=== PATIENT | female | born 1955 | race Caucasian/White ===

== ENCOUNTER 2017-07-01 10:15 | Outpatient (CLI) | payer BC ==
--- NOTE | 2017-07-01 15:50 | NM ---
WHOLE BODY BONE SCAN: Comparison: 08-15-16, MRI 08-22-16 History: Lung cancer with metastatic disease at the right femur, status post radiation therapy. Technique: A whole body bone scan was performed after administration of 33 mCi Technetium 99M MBP. FINDINGS: There is very subtle increased uptake of the radiopharmaceutical in the proximal aspect of the femur where the previous lesion was identified. This was barely noticeable and would have likely been imp erceptible, if not having the prior imaging. No other areas of suspicious uptake of radiopharmaceuti ruel are seen to suggest osseous metastatic disease. Soft tissue activity is unremarkable. IMPRESSION: Improvement of uptake in the proximal right femur suggests treatment of the metastatic lesion to the right femur. POS: [facility]
== END 2017-07-01 10:16 | disposition home or self-care (01) ==
LOC: NM 10:15
PROVIDERS: ATTEND Internal Medicine Hematology & Oncology
DX: C79.51 Secondary malignant neoplasm of bone (principal); C34.81 Malignant neoplasm of overlapping sites of right bronchus and lung
CPT/HCPCS: 78306; A9503

== ENCOUNTER 2017-07-29 12:42 | Outpatient (CLI) | payer BC ==
--- NOTE | 2017-07-29 17:18 | MRI ---
MRI BRAIN WITH AND WITHOUT CONTRAST: 07/29/2017 HISTORY: A 61-year-old female with diagnosis of ICD-10: C34.81, malignant neoplasm of overlapping sites of right bronchus and lung. C79.51 secondary malignant neoplasm of bone. The patient now presents with forgetfulness. As requested, Dr. Cuba was called with the results at 2:38 p.m. on 07/29/2017. TECHNIQUE: Multiple sequences obtained in axial, sagittal, and coronal planes; pre and post IV injection of jevon olinium-based contrast agent: 14 mL of MultiHance. FINDINGS: The ventricles are normal in size and configuration. There is no restricted diffusion, abnormal int raaxial enhancement, mass, midline shift or any other mass effect, recent intraaxial hemorrhage, or extraaxial fluid collection. There are many scattered punctate T2-hyperintensities in the cerebral w collins matter consistent with mild chronic ischemic white matter changes due to mild microvascular ath erosclerosis. There are also more confluent regions of T2 hyperintense chronic ischemic white matte r changes in the bilateral parietal deep cerebral white matter, left side greater than right. There is no interval change overall since 11/28/2016. IMPRESSION: 1. Mild-moderate chronic ischemic white matter changes. 2. Otherwise negative. 3. No juan metastasis. ronnell[] POS: [facility]
== END 2017-07-29 12:43 | disposition home or self-care (01) ==
LOC: MRI 12:42
PROVIDERS: ATTEND Internal Medicine Hematology & Oncology
DX: C34.81 Malignant neoplasm of overlapping sites of right bronchus and lung (principal); C79.51 Secondary malignant neoplasm of bone
CPT/HCPCS: 70553; 80053; 82248; 83615; 84100; 84436; 84443; 84550

== ENCOUNTER 2017-09-07 08:38 | Outpatient (CLI) | payer BC ==
--- NOTE | 2017-09-07 11:22 | CT ---
CONTRAST ENHANCED CT IMAGES OF THE CHEST AND ABDOMEN: HISTORY: Lung cancer. Bone metastases. COMPARISON: 06/23/2017 TECHNIQUE: Contrast enhanced CT images of the chest and abdomen are obtained. FINDINGS: CHEST: Contrast enhanced CT of the chest and abdomen demonstrates emphysematous changes seen in both upper lobes of the lungs. An area of patchy soft tissue density is seen in the right middle lobe, u nchanged since the previous exam. A small, approximately 4 mm nodule is seen in the left lower lobe, also stable and unchanged since th e previous comparison exam. Previously noted left axillary enlarged lymph node is no longer visible and has been removed or has r esolved. Again, a left jugular Mediport catheter is in place. Coronary artery calcification is seen. There is some increased pericardial fluid noted. ABDOMEN: The liver, spleen, pancreas, adrenal glands, and kidneys are unremarkable. The gallbladder has been surgically removed. No evidence of periaortic lymphadenopathy is seen. There is complete occlusion of the abdominal aorta, just distal to the infrarenal portion of the abdo mariah aorta. Atherosclerotic plaque extends into both common iliac arteries, which also appear to be occluded. No significant evidence of bony metastatic lesions seen. Vacuum disk change is seen at the L5-S1 int ervertebral disk space. IMPRESSION: 1. Small pericardial effusion. 2. Resolved left axillary lymph node. 3. Fibrobullous changes seen in the lung parenchyma. 4. Stable left lower lobe and right middle lobe areas of lung opacities. 5. Occlusion of the infrarenal abdominal aorta and iliac arteries. 6. No evidence of periaortic lymphadenopathy or hepatic parenchymal lesions. POS: [facility]
[2017-09-07] MEDS ORDERED: Iopamidol 370 76% 100 ML VIAL ONE (13:54)
== END 2017-09-07 08:39 | disposition home or self-care (01) ==
LOC: CT 08:38
PROVIDERS: ATTEND Internal Medicine Hematology & Oncology
DX: C34.81 Malignant neoplasm of overlapping sites of right bronchus and lung (principal); C79.51 Secondary malignant neoplasm of bone; I31.3 Pericardial effusion (noninflammatory); I74.5 Embolism and thrombosis of iliac artery; N28.0 Ischemia and infarction of kidney; R91.8 Other nonspecific abnormal finding of lung field
CPT/HCPCS: 71260; 74160

== ENCOUNTER 2017-12-07 15:17 | Outpatient (CLI) | payer BC | END 2017-12-07 15:18 | disposition home or self-care (01) | LOC: BICCT 15:17 | PROVIDERS: ATTEND Internal Medicine Hematology & Oncology | DX: N20.0 Calculus of kidney (principal); C34.81 Malignant neoplasm of overlapping sites of right bronchus and lung; C79.51 Secondary malignant neoplasm of bone | CPT/HCPCS: 74176; 81001; 87086 ==

== ENCOUNTER 2017-12-28 07:52 | Outpatient (CLI) | payer BC ==
[2017-12-28 08:37] LABS: Estimated GFR-MDRD - POC Greater than 90
--- NOTE | 2017-12-28 11:23 | CT ---
CT OF THE CHEST AND ABDOMEN WITH IV CONTRAST: Date: 12/28/17 INDICATION: History of lung cancer, status post chemo and radiation therapy. COMPARISON: Recent CT of the thorax with contrast dated 09/07/17, as well as CT of chest, abdomen, and pelvis fro [facility] dated 07/21/16. FINDINGS: There is severe emphysema. The small linear scar-like region within the medial segment of the right m iddle lobe is stable. Tiny 5.0 mm ground-glass pulmonary nodule within the right lower lobe on image 41 of series 3 is stable. Small, sub-4 mm, subpleural pulmonary nodule within the left lower lobe on image 30 of series 3 is stable. No new pulmonary nodule is identified. No pathologically enlarged lymph nodes are evident. The soft tissue thickening involving the paratrac heal region and anterior mediastinum likely related to therapy changes is stable. Supraclavicular reg ions appear clear. There is a left subclavian chest wall port in place. There are scattered vascular calcifications. No focal hepatic lesion is evident. The adrenal glands appear within normal limits. The pancreas and spleen are normal appearing. Kidneys are normal appearing. Gallbladder is surgically absent. Complete occlusion of the distal abdominal aorta is stable. There is diffuse osteopenia. No definite acute osseous abnormality is evident. There is scattered deg enerative and osteoarthritic change. IMPRESSION: 1. No evidence of recurrent malignancy within the chest or abdomen. 2. Small pulmonary nodules within the right middle lobe and both lower lobes are stable. 3. Stable severe emphysema. 4. Stable complete occlusion of the distal abdominal aorta. POS: [facility]
[2017-12-28] MEDS ORDERED: Iopamidol 370 76% 100 ML VIAL ONE (13:09)
== END 2017-12-28 07:53 | disposition home or self-care (01) ==
LOC: CT 07:52
PROVIDERS: ATTEND Internal Medicine Hematology & Oncology
DX: C34.81 Malignant neoplasm of overlapping sites of right bronchus and lung (principal); J43.9 Emphysema, unspecified; R91.8 Other nonspecific abnormal finding of lung field; I70.0 Atherosclerosis of aorta
CPT/HCPCS: 71260; 74160; 82565

== ENCOUNTER 2018-02-23 12:49 | Outpatient (CLI) | payer BC ==
[2018-02-23 14:04] LABS: Hemoglobin 12.5 g/dL (12.0-16.0); Mean Corpuscular HGB CONC 32.2 g/dL (32.0-36.0); Mean Corpuscular Hemoglobin 34.8 pg (27.0-31.0); Mean Platelet Volume 7.8 fL (7.4-10.4); Platelet Count 200 thou/uL (130-400); RBC Distribution Width 12.9 % (11.5-14.5); White Blood Cell (WBC) Count 6.2 thou/uL (4.8-10.8)
[2018-02-23 14:25] LABS: Anion Gap 10 mmol/L (10-20); BUN (Urea Nitrogen) 13 mg/dL (9.8-20.1); Calc. Creatinine Clearance 0 mL/min (70-130); Calcium 9.6 mg/dL (7.8-10.44); Carbon Dioxide 26 mmol/L (23-31); Chloride 108 mmol/L (98-107); Estimated GFR-MDRD 84; Glucose 85 mg/dL (80-115); Potassium 5.6 mmol/L (3.5-5.1); Sodium 138 mmol/L (136-145)
--- NOTE | 2018-02-23 23:50 | EKG ---
Test Reason : Blood Pressure : / mmHG Vent. Rate : 082 BPM Atrial Rate : 082 BPM P-R Int : 122 ms QRS Dur : 078 ms QT Int : 356 ms P-R-T Axes : 081 078 082 degrees QTc Int : 415 ms Normal sinus rhythm Right atrial enlargement Borderline ECG When compared with ECG of 18-MAR-2017 13:41, Vent. rate has decreased BY 45 BPM Confirmed by GERDA RICHMOND, SGuzman ([id number]) on 02/23/2018 11:50:34 PM Referred By: DEEP Confirmed By:DR. Nemesio LORENZ MD
== END 2018-02-23 12:50 | disposition home or self-care (01) ==
LOC: LABBT 12:49
PROVIDERS: ATTEND Urology
DX: Z01.818 Encounter for other preprocedural examination (principal); N32.9 Bladder disorder, unspecified
CPT/HCPCS: 80048; 81001; 85027; 93005; 93010

== ENCOUNTER 2018-03-02 09:05 | Day surgery (SDC) | payer BC ==
[2018-02-23 13:04] VITALS: BMI 25.0
[2018-03-02] MEDS ORDERED: Levofloxacin 500 mg/D5W 100 ml Premix Bag ONE (09:58)
[2018-03-02] MEDS ORDERED: Fentanyl 100 MCG/2 ML VIAL ONE ×2 (10:46→12:01)
[2018-03-02] MEDS ORDERED: Phenazopyridine HCl 97.5 MG TABLET ONE ×2 (12:04)
--- NOTE | 2018-03-02 12:58 | OP ---
DATE OF PROCEDURE: 03/02/2018 PREOPERATIVE DIAGNOSIS: Right bladder wall lesion. POSTOPERATIVE DIAGNOSIS: Right bladder wall lesion. PROCEDURE: Excision of lesion via cold cup biopsy as well as random bladder biopsies with isabel mayo SURGEON: Ramya Rojas M.D. ANESTHESIA: General with laryngeal mask airway. FINDINGS: Adequate resection of any abnormal appearing tissue. INDICATIONS: The patient is a 62-year-old female with metastatic lung cancer who had a workup for mi crohematuria and intraoperative cystoscopy revealed changes of the mucosa with overlying brown white balls adherent to this area, some of which I was able to scrape away, others I was not, so I wanted t o take her for formal resection in the OR. None of this appeared consistent with a primary TCC so I did not prepare for mitomycin postoperatively. TECHNIQUE: The patient was brought to the room by Anesthesia, laid on the table in supine position. After receiving general anesthetic the legs were placed in lithotomy position and her perineum was p repped and draped in sterile fashion. Using a 22-German cystoscope and 30-degree lens was traversed and inspected. The area of concern was hyperemic with now only 1 white ball approximately 1 mm in di ameter adherent to the mucosa as the others had been scraped off in the office so this entire area wa s resected with a cold cup biopsy and sent together as a lesion in the right wall. Then, random biop sies were performed of right and left posterior trigone and dome. All of these areas were fulgurated . The area of resection was small as I did not feel like she needed a catheter indwelling, but had a lready emphasized the need not to over distend or hold her urine in the postoperative period. Prior to resecting, the 70 degree lens was used to inspect the bladder as well. No other lesions were note d. The ureteral orifices were in normal position. At this point, the scope was drained and then the bladder was drained and the scope removed in its entirety. The patient was awakened and transferred to PACU in stable condition.
[2018-03-02] MEDS ORDERED: PROPOFOL 200 MG/20 ML VIAL ONE (13:45)
[2018-03-02] MEDS ORDERED: PHENYLEPHRINE-NS 100 MCG/ML 10 ML SYRINGE ONE (13:45)
[2018-03-02] MEDS ORDERED: Lidocaine 1% PF 5 ML VIAL ONE (13:45)
[2018-03-02] MEDS ORDERED: Ondansetron HCl/PF 4 MG/2 ML Vial ONE (13:45)
[2018-03-02] MEDS ORDERED: Dexamethasone 20 MG/5 ML VIAL ONE (13:45)
== END 2018-03-02 13:42 | disposition home or self-care (01) ==
LOC: SDC 09:05
PROVIDERS: ATTEND Urology
PROC: 0TBB8ZX Excision of Bladder, Via Natural or Artificial Opening Endoscopic, Diagnostic (ICD-10-PCS; principal; 2018-03-02)
DX: N32.89 Other specified disorders of bladder (principal); E03.9 Hypothyroidism, unspecified; M19.90 Unspecified osteoarthritis, unspecified site; F17.210 Nicotine dependence, cigarettes, uncomplicated; J44.9 Chronic obstructive pulmonary disease, unspecified; Z86.718 Personal history of other venous thrombosis and embolism; Z79.82 Long term (current) use of aspirin; Z79.899 Other long term (current) drug therapy; Z88.0 Allergy status to penicillin; Z91.041 Radiographic dye allergy status
CPT/HCPCS: 88305; 96374; J1100; J1956; J2001; J2405; J2704; J3010

== ENCOUNTER 2018-03-26 07:55 | Outpatient (CLI) | payer BC ==
[2018-03-26 08:31] LABS: Estimated GFR-MDRD - POC Greater than 90
--- NOTE | 2018-03-26 09:27 | CT ---
CT OF THE CHEST WITH CONTRAST CT OF THE ABDOMEN WITH CONTRAST: Date: 03/26/18 HISTORY: Malignant neoplasm of the right bronchus and lung. TECHNIQUE: 1. Multiple contiguous axial images were obtained in a CT of the chest with contrast. Coronal reform ats were performed. 2. Multiple contiguous axial images were obtained in a CT of the abdomen only with contrast. Coronal reformats were performed. PO contrast was administered. FINDINGS: CT CHEST: Severe emphysematous changes are seen in the lungs. No suspicious pulmonary nodule is seen. No focal infiltrate or present. No pneumothorax or pleural effusions seen. A stable nodular opacity is seen in the right lower lobe on image 39 of 63 measuring approximately 4.0 mm in size. The heart is normal in size without focal cardiac abnormality. No hilar or mediastinal lymphadenopath y are seen. Atherosclerotic calcifications are seen in the aorta and coronary arteries. The bones of the thorax show degenerative changes in the spine. The chest wall soft tissues are unrem arkable. CT ABDOMEN: The patient is status post cholecystectomy. The liver, kidneys, adrenal glands, spleen, and pancreas are unremarkable. No free air, free fluid, or stranding changes are seen in the abdomen. The visualized large and small bowel are unremarkable. No abdominal adenopathy is seen. There is stab le occlusion of the distal aorta just above the bifurcation with severe atherosclerotic disease in th e aorta and iliac vasculature. The abdominal wall soft tissues and bones of the lumbar spine are unremarkable. IMPRESSION: 1. No evidence of intrathoracic metastatic disease. 2. Stable small right lower lobe pulmonary nodule. 3. Emphysema. 4. No evidence of recurrent or metastatic intraabdominal disease. 5. Stable occlusion of the distal aorta. POS: [facility]
== END 2018-03-26 07:56 | disposition home or self-care (01) ==
LOC: CT 07:55
PROVIDERS: ATTEND Internal Medicine Hematology & Oncology
DX: C79.51 Secondary malignant neoplasm of bone (principal); C34.90 Malignant neoplasm of unspecified part of unspecified bronchus or lung; J43.9 Emphysema, unspecified; R91.1 Solitary pulmonary nodule; I74.11 Embolism and thrombosis of thoracic aorta
CPT/HCPCS: 71260; 74160; 82565

== ENCOUNTER 2018-06-29 14:39 | Outpatient (CLI) | payer BC | END 2018-06-29 14:40 | disposition home or self-care (01) | LOC: BICRAD 14:39 | PROVIDERS: ATTEND Neurological Surgery | DX: S22.039A Unspecified fracture of third thoracic vertebra, initial encounter for closed fracture (principal); S22.049A Unspecified fracture of fourth thoracic vertebra, initial encounter for closed fracture; S22.059A Unspecified fracture of T5-T6 vertebra, initial encounter for closed fracture | CPT/HCPCS: 72070 ==

== ENCOUNTER 2018-09-17 09:50 | Day surgery (SDC) | payer BC ==
[2018-09-16 08:40] VITALS: BMI 23.6
[2018-09-17] MEDS ORDERED: Sodium Chloride 0.9% 10 ML ONE (10:32)
[2018-09-17] MEDS ORDERED: Fentanyl 100 MCG/2 ML VIAL ONE (11:36)
[2018-09-17] MEDS ORDERED: Midazolam HCl 2 mg/2 ml Vial ONE (11:36)
--- NOTE | 2018-09-17 14:34 | MRI ---
THORACIC SPINE MRI WITH AND WITHOUT CONTRAST: COMPARISON: 06/05/2018. HISTORY: Lung cancer with osseous metastases. TECHNIQUE: MRI thoracic spine is performed with and without intravenous Gadolinium administration. Multisequent ial, multiplanar imaging is performed. FINDINGS: There is abnormal T1 marrow signal intensity at the T4 vertebral body, similar to the previous examin ation. There is interval development of T1 marrow hypointensity involving T7 and T8. There is mild loss of vertebral body height. There is associated STIR hyperintensity with absent enhancement. The re is also abnormal signal intensity with moderate to severe loss of vertebral body height at T5. Th ere is T1 hypointensity with heterogeneous STIR hyperintensity. Absent enhancement. No other areas of abnormal marrow signal intensity are appreciated in the visualized distal thoracic and lumbar spin e. Osteoporotic compression fractures are favored at T5, T7, and T8. The possibility of metastases in this region cannot be completely excluded but is less favored. There does not appear to be abnorm al paraspinal soft tissue signal intensity. There is progression of kyphosis. The thoracic cord has an overall normal size and signal intensity. Conus medullaris terminates at th e mid L1 level. Visualized mediastinum and lung parenchyma are unremarkable. Visualized solid organs are unremarkabl e. There is no abnormal enhancement with regards to the thoracic cord. IMPRESSION: 1. Normal signal intensity of the thoracic cord. 2. Interval moderate to severe loss of vertebral body height at T5, mild loss of vertebral body heig ht at T7 and T8. There is abnormal T1 marrow signal intensity along with STIR hyperintensity to sugg est edema. However, there is no associated enhancement. Given that the findings are centered from T 4 through T8 and there are no additional findings in the remainder of the visualized vertebrae, the p ossibility of osteoporotic fractures must be considered. The possibility of a pathologic fracture du e to superimposed metastases cannot be completely excluded. POS: [facility]
[2018-09-17] MEDS ORDERED: Hydrocortisone Sod Succ/PF 100 mg/2 ml Vial ONE (21:54)
[2018-09-17] MEDS ORDERED: PROPOFOL 200 MG/20 ML VIAL ONE (21:54)
[2018-09-17] MEDS ORDERED: ePHEDrine/0.9% NaCl/PF SYRINGE 50 mg/10 ml ONE (21:54)
== END 2018-09-17 14:25 | disposition home or self-care (01) ==
LOC: SDC/OP 09:50
PROVIDERS: ATTEND Neurological Surgery
DX: S22.040D Wedge compression fracture of fourth thoracic vertebra, subsequent encounter for fracture with routine healing (principal); S22.050D Wedge compression fracture of T5-T6 vertebra, subsequent encounter for fracture with routine healing; C34.90 Malignant neoplasm of unspecified part of unspecified bronchus or lung; C79.51 Secondary malignant neoplasm of bone; J44.9 Chronic obstructive pulmonary disease, unspecified; E78.5 Hyperlipidemia, unspecified; M19.90 Unspecified osteoarthritis, unspecified site; E11.51 Type 2 diabetes mellitus with diabetic peripheral angiopathy without gangrene; I74.09 Other arterial embolism and thrombosis of abdominal aorta; Z86.718 Personal history of other venous thrombosis and embolism; Z88.0 Allergy status to penicillin; Z91.041 Radiographic dye allergy status; Z79.82 Long term (current) use of aspirin; Z79.899 Other long term (current) drug therapy
CPT/HCPCS: 72157; 93005; 93010; J1642; J1720; J2250; J2704; J3010

== ENCOUNTER 2018-09-20 08:06 | Outpatient (CLI) | payer BC ==
--- NOTE | 2018-09-20 10:22 | CT ---
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 Comparison: 06-07-18 FINDINGS: The previously described approximately 0.5 cm noncalcified right lower lobe pulmonary nodule very tyson se to the posterior pleural surface, has not changed. Severe centrilobular emphysematous changes of t he bilateral upper lobes are again noted. No new suspicious pulmonary nodule. No destructive osseous lesion of the ribs, sternum, or scapulae. Left subclavian implantable vascular port with distal tip i n SVC. No cardiomegaly, consolidation, mediastinal lymphadenopathy, hilar lymphadenopathy, cardiomega ly or pericardial effusion. No thoracic aneurysm or dissection. Sclerotic changes involving compressi on fracture of T4 vertebral body without osseous retropulsion. Trachea and major bronchi are patent a nd clear. No interval change overall. Normal liver with no evidence of metastatic disease. Normal bilateral kidneys, spleen, pancreas, and right adrenal. Nonspecific thickening of left adrenal gland. Heavy atherosclerotic plaque, both calci fied and noncalcified involving abdominal aorta, especially distally where there appears to be total or near total occlusion of aortic bifurcation and proximal aspects of common iliac arteries. No dylan hepatis or mesenteric lymphadenopathy. No obvious pathology of visualized portions of bowel in the u pper abdomen. No free fluid. Cholecystectomy clips. No intraabdominal lymphadenopathy identified. No interval change. IMPRESSION: 1. No interval change in the chest and abdomen compared to 06-07-18. 2. Stable 5 mm right lower lobe pulmonary nodule. 3. Somewhat severe centrilobular emphysema. 4. No evidence of metastatic disease in the abdominal cavity. 5. Severe stenosis with either total or near total occlusion of aortic bifurcation and bilateral comm on iliac arteries. Recommend clinical correlation. POS: [facility]
== END 2018-09-20 08:07 | disposition home or self-care (01) ==
LOC: CT 08:06
PROVIDERS: ATTEND Internal Medicine Hematology & Oncology
DX: C34.90 Malignant neoplasm of unspecified part of unspecified bronchus or lung (principal); C79.51 Secondary malignant neoplasm of bone; R91.1 Solitary pulmonary nodule; J43.2 Centrilobular emphysema; I35.0 Nonrheumatic aortic (valve) stenosis; I77.89 Other specified disorders of arteries and arterioles
CPT/HCPCS: 71260; 74160

== ENCOUNTER 2018-11-26 14:51 | Outpatient (CLI) | payer BC ==
--- NOTE | 2018-11-26 15:24 | RAD ---
THREE VIEWS OF THE THORACIC SPINE: Comparison: CT chest 09-20-18 History: Wedge compression fractures of T5, T6, T7 and T8. FINDINGS: Three views of the thoracic spine shows multiple wedge compression fractures in the midthoracic spine . The T7 and T8 fractures demonstrate approximately 10-25% height loss. A T5 fracture demonstrates ap proximately 50% height loss. A fracture above this level cannot be definitely determined given the carolina liseth overlying the spine from the patient's shoulders. IMPRESSION: Multiple wedge compression fractures of the mid thoracic spine. POS: [facility]
== END 2018-11-26 14:52 | disposition home or self-care (01) ==
LOC: BICRAD 14:51
PROVIDERS: ATTEND Neurological Surgery
DX: S22.050D Wedge compression fracture of T5-T6 vertebra, subsequent encounter for fracture with routine healing (principal); S22.060D Wedge compression fracture of T7-T8 vertebra, subsequent encounter for fracture with routine healing
CPT/HCPCS: 72072

== ENCOUNTER 2018-12-13 21:28 | Inpatient (IN) | payer BC ==
[~2018-12-13 21:28] MED LIST: ISOVUE-370 76%-LOCM 1 ML ONE
[2018-12-13] MEDS ORDERED: Dicyclomine 20 MG TAB ONE (21:50)
[2018-12-13] MEDS ORDERED: Pantoprazole 40 MG VIAL ONE (21:50)
[2018-12-13] MEDS ORDERED: Famotidine/PF 20 mg/2ml Vial ONE (22:12)
[2018-12-13] MEDS ORDERED: methylPREDNISolone Sod Succ/PF 125 MG/2 ML VIAL ONE (22:12)
[2018-12-13] MEDS ORDERED: diphenhydrAMINE 50 MG/ML VIAL ONE (22:12)
[2018-12-13 22:29] LABS: Band 17 % (5-11); Eosinophils 1 % (0-10); Hemoglobin 11.3 g/dL (12.0-16.0); Lymphocytes 9 % (21-51); MDiff Complete? YES; Mean Corpuscular HGB CONC 31.2 g/dL (32.0-36.0); Mean Corpuscular Hemoglobin 31.1 pg (27.0-31.0); Mean Corpuscular Volume 99.5 fL (78.0-98.0); Mean Platelet Volume 8.4 fL (7.4-10.4); Monocytes 21 % (0-10); Neutrophil 51 % (42-75); Platelet Count 225 thou/uL (130-400); Platelet Morphology Comment Appears Adequate; RBC Distribution Width 15.1 % (11.5-14.5); Red Blood Cell (RBC) Count 3.65 mill/uL (4.20-5.40); White Blood Cell (WBC) Count 12.2 thou/uL (4.8-10.8)
[2018-12-13 22:35] LABS: ALT (SGPT) 14 U/L (8-55); AST (SGOT) 24 U/L (5-34); Albumin 3.1 g/dL (3.4-4.8); Alkaline Phosphatase 57 U/L (40-150); Anion Gap 19 mmol/L (10-20); BUN (Urea Nitrogen) 16 mg/dL (9.8-20.1); Bilirubin, Total 0.7 mg/dL (0.2-1.2); Calc. Creatinine Clearance 0 mL/min (70-130); Calcium 8.5 mg/dL (7.8-10.44); Carbon Dioxide 14 mmol/L (23-31); Chloride 105 mmol/L (98-107); Estimated GFR-MDRD 53; Globulin 2.4 g/dL (2.4-3.5); Potassium 4.3 mmol/L (3.5-5.1); Protein, Total 5.5 g/dL (6.0-8.3); Sodium 134 mmol/L (136-145)
[2018-12-13 22:38] LABS: Glucose 59 mg/dL (80-115)
[2018-12-13] MEDS ORDERED: Dextrose 50% Abboject 50 ML SYRINGE ONE (22:42)
[2018-12-13] MEDS ORDERED: Ondansetron PF 4 MG/2 ML Vial ONE (22:50)
[2018-12-14 01:45] LABS: Bilirubin Negative (Negative); Blood, Urine Trace (Negative); Clarity CLEAR (Clear); Glucose, Urine (Dipstick) 250 mg/dL (Negative); Leukocyte Negative (Negative); Nitrite Negative (Negative); Protein, Urine (Dipstick) Trace mg/dL (Neg-Trace); Specific Gravity, Urine 1.034 (1.002-1.036); Urobilinogen 0.2 mg/dL (0.2-1.0)
[2018-12-14 01:46] LABS: Bacteria/HPF None Seen HPF (None Seen); Hyaline Casts/LPF 0-3 HYALINE CAST LPF (0-3 Hyaline); RBC/HPF 0-3 HPF (0-3); Squamous Epithelial 0-3 HPF (0-3); WBC/HPF 0-3 HPF (0-3)
[2018-12-14] MEDS ORDERED: Ondansetron PF 4 MG/2 ML Vial ONE (08:11)
--- NOTE | 2018-12-14 08:14 | CT ---
CT ABDOMEN AND PELVIS WITH IV CONTRAST: 12/13/2018 HISTORY: Nausea, vomiting, and abdominal pain. COMPARISON: 09/20/2018 FINDINGS: Emphysematous changes are seen at the visualized lung bases. A 5 mm pleural-based nodular density is again seen at the right lung base. A small thin-walled, cystic structure is seen at the right lung base as well. As noted on the prior examination, there is occlusion of the distal infrarenal abdominal aorta and co mmon iliac arteries, with dense vascular calcifications in the visualized iliac arteries. Post cholecystectomy changes are noted. The liver, spleen, pancreas, bilateral adrenal glands, and kidneys demonstrate a normal CT appearance . A few scattered colonic diverticula are seen. The appendix is not definite visualized, but there are no secondary signs to suggest appendicitis. No free fluid, fluid collection, or lymphadenopathy is seen in the abdomen or pelvis. Degenerative changes are seen in the spine. There is suggested thickening involving the distal esophagus. IMPRESSION: 1. Thickening of the visualized distal esophagus, not present on the prior examination. Further chon luation with endoscopy is recommended. 2. Stable, 5 mm, pleural-based, right lower lobe pulmonary nodule. 3. Post cholecystectomy changes. 4. Occlusion of the distal infrarenal abdominal aorta and iliac arteries. 5. Colonic diverticulosis. 6. Emphysematous changes at each lung base. POS: [facility]
--- NOTE | 2018-12-14 08:29 | CT ---
CT ANGIOGRAM THORAX WITH IV CONTRAST AND 3D RECONSTRUCTIONS: 12/13/2018 HISTORY: Exertional dyspnea. Known cancer. COMPARISON: 09/20/2018 FINDINGS: There is circumferential thickening of the macias of the thoracic esophagus, with suggestion of minima l adjacent stranding. Given long segment of involvement, findings may be related to an infectious or inflammatory process. A neoplastic process cannot be entirely excluded, although, given long-segmen t involvement, it is thought less likely. There is pleural-based density at the posteromedial right lung base, which may be related to a minima l amount of pleural fluid or pleural thickening. There are emphysematous changes seen throughout the lungs bilaterally, much greater in the upper lobe s. A 5 mm, noncalcified right lower lobe pulmonary nodule is again seen and is stable, compared to t he prior study in 2018. Scattered linear densities are seen in the right upper lobe and right middle lobe, likely related to areas of mild scarring. Minimal pleural thickening is seen at the posterome dial left lung base. No filling defects are seen in the pulmonary arteries to suggest a pulmonary embolus. Atherosclerotic vascular calcifications and plaque are seen within the thoracic aorta. The thoracic aorta is normal in caliber. post cholecystectomy changes are seen. Again noted are the sclerotic changes and compression fracture involving the T5 vertebral body, with sclerotic changes again seen involving the T4 vertebral body, without significant loss of height. A compression fracture of the superior endplate of the T8 vertebral body is also again seen, but there is now evidence of a mild compression fracture of the superior endplate of the T7 vertebral body, whi ch represents an interval change, but there is less than 10% loss of height of this vertebral body. Signal abnormalities were seen involving the T4 and T5 vertebral bodies on prior MRI on 09/17/2018, a nd compression fractures of the superior endplates of the T7 and T8 vertebral bodies were seen on MRI exam. IMPRESSION: 1. Abnormal thickening involving the thoracic esophagus, diffusely. Given diffuse involvement, find ings may be related to an infectious or inflammatory process. A neoplastic process is a possibility but is felt less likely, given the long segment of involvement. There is suggestion of mildly increa sed soft tissue density in the subcarinal region as well. This may be attributable to the diffusely thickened esophagus. A gastroenterology consultation is suggested for further evaluation. 2. Pleural thickening at the right lung base. 3. Stable right lower lobe pulmonary nodule. 4. Emphysematous changes, predominantly in the upper lobes. 5. No CT evidence of a pulmonary embolus. 6. Atherosclerotic vascular calcifications and plaque in the thoracic aorta. 7. Compression fractures of mid thoracic vertebral bodies, as described above. POS: [facility]
--- NOTE | 2018-12-14 09:21 | HP ---
CHIEF COMPLAINT ON ADMISSION: Protracted nausea and vomiting with severe dehydration. HISTORY OF PRESENT ILLNESS: The patient is a 63-year-old female, who on Thursday prior to admission 12/09/2018, began to have extensive nausea and vomiting. Since that time, she is unable to hold anything down orally. She tried to get into my office on Thursday, 12/13, but was unable to achieve this, so she came to the emergency room, where she was noted to have ketones in the 80s, heart rate over 120 and very dehydrated. Fluids were immediately given. Her heart rate improved somewhat, but did not maintain itself due to persistent nausea and distress. The patient has been taken Opdivo as a treatment for her small cell lung cancer. She was hospitalized for this very same situation on 06/04/2018, requiring extensive fluids and antiemetics. She is very weak and dry at the time of admission with persistent heart rate running above 120. PAST MEDICAL HISTORY: Significant for the aforementioned small cell lung cancer. She also has hypertension, hypothyroidism, dyslipidemia, generalized anxiety disorder, history of nephrolithiasis, tobacco abuse, peripheral vascular disease, and pleurisy due to her lung cancer. She has also had a DVT, COPD, and arthritis. PAST SURGICAL HISTORY: Includes port placement for chemotherapy, gallbladder surgery in 1989. Her bladder surgery was in 2017. She has also had a section. ALLERGIES: ALLERGIES ARE TO AMOXICILLIN AND IODINE. SOCIAL HISTORY: Currently, does not smoke or drink. Has been getting chemotherapy. No illicit drug use. MEDICATIONS: On admission include; 1. Diltiazem 120 mg a day. 2. Levothyroxine 75 mcg a day. 3. Rosuvastatin 10 mg at bedtime. 4. Aspirin 81 mg daily. 5. Xanax 1 mg, she takes one-half to 1 tab at bedtime. 6. Flexeril 10 mg p.r.n. muscle spasms. 7. The aforementioned Opdivo chemotherapy. REVIEW OF SYSTEMS: CONSTITUTIONAL: At the time of admission, she feels like she has had maybe low-grade fever, chills, extensive nausea, and malaise. HEENT: Denies any blurred vision, drainage from ear, nose, or throat, or lesions in the pharynx. NECK: Has been tender without painful range of motion. CHEST: Has chronic shortness of breath, especially with emesis. CARDIOVASCULAR: Denies chest pain or palpitations, although heart has been racing. ABDOMEN: Has been tender with nausea and vomiting. Denies diarrhea. GENITOURINARY: Denies dysuria, blood in urine or stool. SKIN: No new rashes or lesions. MUSCULOSKELETAL: Denies any new joint pain or muscle pain. NEUROLOGIC: Denies any headaches or trouble with mentation. PHYSICAL EXAMINATION: VITAL SIGNS: At the time of admission; blood pressure is currently 130/71, heart rate 120, respiratory rate is 16, and she is afebrile. GENERAL: This is a cachectic, elderly female, alert, oriented, cooperative, very weak. HEENT: Normocephalic, atraumatic. Pupils with diminished reactivity to light at 1 to 2 mm with arcus senilis bilaterally. TMs and nares clear. Pharynx is dry. NECK: Supple. Trachea midline. No mass. CHEST: With diminished breath sounds throughout. BREASTS: Deferred. HEART: Regular rate and rhythm. Tachycardic. ABDOMEN: Soft, generally tender for protracted emesis. No appreciable organomegaly. GENITOURINARY: Deferred. EXTREMITIES: Without clubbing, cyanosis, or edema. Diffuse muscular wasting noted in upper and lower extremities. SKIN: With generalized poor turgor. No acute rashes. NEUROLOGIC: Cranial nerves are intact. Mental status is appropriate. Sensory exam is intact. Unable to test gait and cerebellar function at this time. LABORATORY DATA: Lab work on admission shows WBCs of 12.2, hemoglobin 11.3, hematocrit 36.3, and platelets at 225. Her sodium 134, potassium 4.3, chloride 105, CO2 is 14, BUN 16, and creatinine 1.04 with a glucose of 59. Lactic acid at 1.6. Liver functions unremarkable. Urinalysis is significant for glucose greater than 80 ketones, trace blood. ASSESSMENT: 1. Severe dehydration from protracted nausea, vomiting, probable side effect of Opdivo. 2. Small cell lung disease. 3. Chronic obstructive lung disease. 4. Anxiety disorder. PLAN: IV fluid rehydration, antiemetics, pain management, serial re-evaluation. Job ID: [id number]
[2018-12-14] MEDS ORDERED: Fentanyl 100 MCG/2 ML VIAL SLOW IVP PRN (10:44)
[2018-12-14] MEDS: Dextrose 5 % And 0.9 % NaCl 1,000 ML IV SCH ×2 (14:08→18:16)
[2018-12-14] MEDS: Pantoprazole 40 MG VIAL IVP SCH (20:07)
[2018-12-14] MEDS ORDERED: Dextrose 5% in Water 1,000 ML IV PRN (20:53)
[2018-12-14] MEDS ORDERED: HumaLOG 300 UNITS/3 ML VIAL SC PRN (20:53)
[2018-12-14] MEDS ORDERED: Dextrose 50% Abboject 50 ML SYRINGE IVP PRN (20:53)
[2018-12-14] MEDS: Sodium Chloride 0.9% 1,000 ML IV SCH (21:02)
--- NOTE | 2018-12-14 21:57 | CON ---
DATE OF CONSULTATION: HISTORY OF PRESENT ILLNESS: The patient is a 63-year-old female reports a 7 to 10 day history of gradually worsening difficulty swallowing and vomiting. She has been unable to hold anything down and came to the emergency room for that. She has not had prior problems prior to this. She does have a history of lung cancer and is presently taking Opdivo. Reportedly, she had a similar episode in May 2018. She denies any weight loss prior to this. She denies any melena or hematochezia. She denies any abdominal pain. PAST MEDICAL HISTORY: Significant for small cell lung cancer, hypertension, hyperlipidemia, COPD, kidney stones, and DVT. PAST SURGICAL HISTORY: Includes port placement, cholecystectomy, bladder surgery, and . ALLERGIES: AMOXICILLIN AND IODINE. SOCIAL HISTORY: She does not smoke or drink. MEDICATIONS: On admission include: 1. Xanax 1 mg one-half q.p.m. p.r.n. 2. Aspirin 81 mg p.o. daily. 3. Rosuvastatin 10 mg p.o. at bedtime. 4. Levothyroxine 75 mcg p.o. daily. 5. Diltiazem 120 mg p.o. daily. 6. Flexeril 10 mg p.o. q.i.d. p.r.n. FAMILY HISTORY: Negative for GI or liver disease. REVIEW OF SYSTEMS: CONSTITUTIONAL: No fever or chills. No weight loss. EYES: No blurred vision or double vision. ENT: No sore throat or earaches. CARDIOVASCULAR: No chest pain or palpitations. PULMONARY: No shortness of breath, cough, or wheezing. SKIN: No rashes. NEUROLOGIC: No numbness or seizure activity. PHYSICAL EXAMINATION: GENERAL: Shows an ill-appearing white female, in no acute distress. VITAL SIGNS: Temperature 97.8, pulse 100, respiratory rate 19, and blood pressure 116/52. HEENT: Unremarkable. NECK: Supple. CHEST: Clear. CARDIOVASCULAR: Regular rate and rhythm without murmurs or gallops. ABDOMEN: Soft and nontender without organomegaly or masses. Bowel sounds are present and normoactive. NEUROLOGIC: Nonfocal. Reviewing old records showed the patient had an upper endoscopy by Dr. Johan landaverde in 2013, which was essentially normal except for a hiatal hernia. The patient underwent an abdominal and pelvic CT, which showed thickening of the distal esophagus, post cholecystectomy, occlusion of the distal infrarenal abdominal aorta and iliac arteries. Chest and thorax CTA showed abnormal thickening of thoracic esophagus diffusely, pleural thickening in the right lung base, stable right lower lobe pulmonary nodule, emphysematous changes. Compression fractures on mid thoracic vertebral bodies. ASSESSMENT: 1. A 63-year-old female with a history of lung cancer, now with difficulty eating and a CT showing thickened esophagus. 2. History of lung cancer. 3. Chronic obstructive pulmonary disease. RECOMMENDATIONS: 1. B.i.d. IV PPI. 2. EGD tomorrow. Job ID: [id number]
[2018-12-15] MEDS ORDERED: Dextrose 5 % And 0.9 % NaCl 1,000 ML IV SCH (01:45)
[2018-12-15] MEDS: Sodium Chloride 0.9% 1,000 ML IV SCH (05:01)
[2018-12-15 05:56] LABS: #Lymphocytes 0.8 thou/uL (1.20-3.40); #Monocytes 1.7 thou/uL (0.11-0.59); #Neutrophils 10.4 thou/uL (1.40-6.50); %Basophils 0.1 % (0.0-1.0); %Lymphocytes 6.2 % (21.0-51.0); %Monocytes 13.4 % (0.0-10.0); %Neutrophils 80.3 % (42.0-75.0); Hemoglobin 8.9 g/dL (12.0-16.0); Mean Corpuscular HGB CONC 32.2 g/dL (32.0-36.0); Mean Corpuscular Hemoglobin 31.4 pg (27.0-31.0); Mean Corpuscular Volume 97.3 fL (78.0-98.0); Mean Platelet Volume 8.4 fL (7.4-10.4); Platelet Count 214 thou/uL (130-400); RBC Distribution Width 15.5 % (11.5-14.5); Red Blood Cell (RBC) Count 2.83 mill/uL (4.20-5.40)
[2018-12-15 06:17] LABS: Anion Gap 10 mmol/L (10-20); BUN (Urea Nitrogen) 6 mg/dL (9.8-20.1); Calc. Creatinine Clearance 87 mL/min (70-130); Calcium 8.4 mg/dL (7.8-10.44); Carbon Dioxide 18 mmol/L (23-31); Chloride 116 mmol/L (98-107); Estimated GFR-MDRD Greater than 90; Glucose 112 mg/dL (80-115); Potassium 3.2 mmol/L (3.5-5.1); Sodium 141 mmol/L (136-145)
[2018-12-15] MEDS: Enoxaparin Sodium 40 MG/0.4 ML SYRINGE SC SCH (09:31)
[2018-12-15] MEDS: Pantoprazole 40 MG VIAL IVP SCH (09:31)
[2018-12-15] MEDS: NS 0.9% w/ 20 MEQ KCL 1,000 ML IV SCH ×3 (10:50→18:26)
[2018-12-15] MEDS ORDERED: PROPOFOL 200 MG/20 ML VIAL ONE (15:15)
[2018-12-15] MEDS ORDERED: Lidocaine 1% PF 5 ML VIAL ONE (15:15)
[2018-12-15] MEDS ORDERED: Promethazine HCl 25 MG/ML VIAL SLOW IVP PRN (17:43)
[2018-12-15] MEDS ORDERED: Ondansetron HCl/PF 4 MG/2 ML Vial IVP PRN (17:43)
[2018-12-15] MEDS ORDERED: Promethazine HCl 25 MG/ML VIAL IM PRN (17:43)
[2018-12-15] MEDS: Pantoprazole 80 MG, Admixture Fee 1 EACH in Sodium Chloride 0.9% 100 ML IVPB SCH (18:24)
[2018-12-15] MEDS: ALPRAZolam 1 MG TAB PO SCH ×2 (20:05→20:06)
[2018-12-15] MEDS: Ondansetron PF 4 MG/2 ML Vial SLOW IVP PRN (20:06)
[2018-12-16] MEDS: NS 0.9% w/ 20 MEQ KCL 1,000 ML IV SCH ×5 (02:49→21:35)
[2018-12-16] MEDS: Levothyroxine Sodium 75 MCG TAB PO SCH (05:56)
[2018-12-16] MEDS: Pantoprazole 80 MG, Admixture Fee 1 EACH in Sodium Chloride 0.9% 100 ML IVPB SCH ×2 (05:56→14:47)
[2018-12-16 07:19] LABS: #Basophils 0.1 thou/uL (0.0-0.2); #Eosinphils 0.2 thou/uL (0.0-0.7); #Lymphocytes 1.5 thou/uL (1.20-3.40); #Monocytes 0.9 thou/uL (0.11-0.59); #Neutrophils 5.1 thou/uL (1.40-6.50); %Basophils 0.7 % (0.0-1.0); %Eosinophils 2.5 % (0.0-10.0); %Lymphocytes 18.8 % (21.0-51.0); %Monocytes 11.9 % (0.0-10.0); Hemoglobin 8.8 g/dL (12.0-16.0); Mean Corpuscular HGB CONC 32.9 g/dL (32.0-36.0); Mean Corpuscular Hemoglobin 32.5 pg (27.0-31.0); Mean Corpuscular Volume 98.8 fL (78.0-98.0); Mean Platelet Volume 8.2 fL (7.4-10.4); Platelet Count 214 thou/uL (130-400); RBC Distribution Width 15.9 % (11.5-14.5); Red Blood Cell (RBC) Count 2.71 mill/uL (4.20-5.40); White Blood Cell (WBC) Count 7.7 thou/uL (4.8-10.8)
[2018-12-16 07:30] LABS: Anion Gap 10 mmol/L (10-20); BUN (Urea Nitrogen) 5 mg/dL (9.8-20.1); Calc. Creatinine Clearance 110 mL/min (70-130); Carbon Dioxide 19 mmol/L (23-31); Chloride 115 mmol/L (98-107); Estimated GFR-MDRD Greater than 90; Glucose 76 mg/dL (80-115); Potassium 3.2 mmol/L (3.5-5.1); Sodium 141 mmol/L (136-145)
--- NOTE | 2018-12-16 08:10 | OP ---
DATE OF PROCEDURE: 12/15/2018 PREOPERATIVE DIAGNOSES: 1. Persistent nausea and vomiting. 2. Thickened esophagus on CT scan. DESCRIPTION OF PROCEDURE: After informed consent was obtained, the patient was placed in a left lateral decubitus position. Anesthesia was administered per the Anesthesia Department. Forward-viewing endoscope was inserted into esophagus under direct visualization with ease and passed to the second portion of the duodenum with ease. Second portion of duodenum and duodenal bulb were normal. The pylorus, antrum, body, fundus, and cardia were normal. Retroflexion in stomach showed a small hiatal hernia. The GE junction and mucosa were somewhat nodular, and biopsies were taken. From the distal esophagus at 35 cm to the mid esophagus at 25 cm, there was circumferential erythema and exudate consistent with esophagitis. Biopsies were taken from several areas. The more proximal esophagus was normal. ASSESSMENT: 1. Severe distal esophagitis from 35 to 25 cm - status post biopsy; most likely reflux. 2. Nodular mucosa at the gastroesophageal junction - status post biopsy. 3. Small hiatal hernia. 4. Otherwise normal esophagogastroduodenoscopy. RECOMMENDATIONS: 1. Await histopathology. 2. Change PPI to continuous infusion. 3. Trial of liquids. Job ID: [id number]
[2018-12-16] MEDS: Enoxaparin Sodium 40 MG/0.4 ML SYRINGE SC SCH (08:41)
[2018-12-16] MEDS: Sucralfate 1 GM TAB PO SCH ×2 (08:41→12:24)
--- NOTE | 2018-12-16 09:09 | RAD ---
PORTABLE CHEST 1 VIEW: Date: 12/16/18 Time: 0823 hours HISTORY: COPD. FINDINGS/IMPRESSION: Comparison made with exam of 09/05/16. There is elevation of the left hemidiaphragm. The heart size is normal. The aorta is tortuous. Left-s ided Port-A-Cath is again seen. No lobar consolidation, pneumothoraces, or large effusions are seen. POS: [facility]
--- NOTE | 2018-12-16 12:15 | PRG ---
DATE OF SERVICE: 12/16/2018 SUBJECTIVE: The patient is tolerating liquids fairly well. She has tried some Jell-O yesterday and she reports it came back up. OBJECTIVE: VITAL SIGNS: Temperature 98.0, pulse 121, respiratory rate 20, blood pressure 132/67. CHEST: Clear. CARDIOVASCULAR: Regular rate and rhythm. ABDOMEN: Soft, nontender without organomegaly or masses. LABORATORY DATA: Laboratory shows white blood cell count of 7.7, hemoglobin 8, hematocrit 26.8. Chemistries significant for potassium of 3.2, CO2 of 19. BNP of 417. Path is pending. ASSESSMENT: 1. Severe distal esophagitis. 2. Persistent nausea and vomiting - suspect secondary to esophagitis. RECOMMENDATIONS: 1. We will add some IV metoclopramide. 2. Discontinue sucralfate. 3. Continuous infusion PPI. Job ID: [id number]
[2018-12-16] MEDS: Acetaminophen 325 MG TAB PO PRN (12:20)
[2018-12-16] MEDS: Metoclopramide HCl 10 MG/2 ML VIAL IVP SCH ×2 (13:26→21:29)
--- NOTE | 2018-12-16 14:22 | CON ---
DATE OF CONSULTATION: HISTORY OF PRESENT ILLNESS: Ms. Lavern Sesay is a 63-year-old white female, patient of Dr. Brush, who has history of non-small cell lung carcinoma, undergoing treatment with Opdivo. She has been documented to have sinus tachycardia in the past. No specific etiology being found. In March 2018, she had an echocardiogram with ejection fraction of 55% to 60% with mild mitral and tricuspid regurgitation, evidence for diastolic dysfunction and trivial pericardial effusion. Also in November 2017, she underwent a PET scan, which was probably normal with no evidence of infarction or ischemia. Over the last week and a half, she has had persistent nausea and vomiting. Whenever she would drink cold liquid, she would have pain with swallowing. Ultimately, she came to the emergency room and has undergone EGD and found to have severe distal esophagitis. She is on continuous Protonix infusion. She denies chest discomfort at other times except for swallowing. She denies any shortness of breath. She does feel palpitations at times and her heart rate has been in general in the 120s since admission. PAST MEDICAL HISTORY: Hypertension, hypothyroidism, hyperlipidemia, peripheral vascular disease, small cell carcinoma of the lung, anxiety disorder, COPD, arthritis. She has history of DVT. OPERATIONS: Placement of MediPort, cholecystectomy, repair of cleft palate, bladder surgery, and section. SOCIAL HISTORY: She smoked in the past, but not at the present time. She does not drink. MEDICATIONS: Include: 1. Levothyroxine 75 mcg daily. 2. Diltiazem 120 daily. 3. Rosuvastatin 10 mg at bedtime. 4. Aspirin 81 daily. 5. Xanax one half to 1 tablet at bedtime. 6. Flexeril 10 mg p.r.n. 7. Opdivo chemotherapy. ALLERGIES: AMOXICILLIN AND IODINE. REVIEW OF SYSTEMS: A 10-point review of systems is otherwise unremarkable. PHYSICAL EXAMINATION: VITAL SIGNS: Blood pressure 132/67, pulse of 120. HEENT: PERRL. NECK: Supple. CHEST: Reveals decreased breath sounds at the bases. CARDIOVASCULAR: S1, S2 normal without any S3, S4 or murmurs. ABDOMEN: Normal bowel sounds without tenderness or organomegaly. EXTREMITIES: Revealed no clubbing, cyanosis, or edema. NEUROLOGIC: Grossly intact. SKIN: Warm and dry. LABORATORY DATA: EKG reveals sinus tachycardia with rate of 120 per minute, low voltage and nonspecific T-wave changes. Hemoglobin 8.8, hematocrit 26.8, white count 7700, platelets 214,000. Sodium 134, potassium 4.3, chloride 105, carbon dioxide 14, BUN 19, creatinine is 1.04, BUN 16, troponin I 0.013. IMPRESSION: 1. History of sinus tachycardia. 2. Stage IV small cell carcinoma of the lung. 3. Peripheral vascular disease. 4. Hypertension. 5. Hypothyroidism. 6. Hyperlipidemia. 7. Anxiety. 8. Former smoker. 9. History of deep venous thrombosis. 10. History of chronic obstructive pulmonary disease. PLAN: The patient will be restarted on her Cardizem 120 p.o. q.a.m. Echocardiogram will be performed to reassess left ventricular function. Job ID: [id number] MTDD
--- NOTE | 2018-12-16 18:19 | EKG ---
Test Reason : Blood Pressure : / mmHG Vent. Rate : 120 BPM Atrial Rate : 120 BPM P-R Int : 114 ms QRS Dur : 072 ms QT Int : 326 ms P-R-T Axes : 066 052 064 degrees QTc Int : 460 ms Sinus tachycardia Low voltage QRS Nonspecific T wave abnormality Abnormal ECG When compared with ECG of 13-DEC-2018 21:39, (Unconfirmed) Premature atrial complexes are no longer Present Confirmed by DR. Nataly CHACON ([id number]) on 12/16/2018 6:19:26 PM Referred By: KIRIT Confirmed By:DR. Nataly CHACON
[2018-12-16] MEDS: ALPRAZolam 1 MG TAB PO SCH (20:31)
[2018-12-17] MEDS: Pantoprazole 80 MG, Admixture Fee 1 EACH in Sodium Chloride 0.9% 100 ML IVPB SCH ×3 (00:50→22:03)
[2018-12-17] MEDS: Levothyroxine Sodium 75 MCG TAB PO SCH (05:55)
[2018-12-17] MEDS: Metoclopramide HCl 10 MG/2 ML VIAL IVP SCH ×3 (05:55→22:00)
[2018-12-17 06:52] LABS: #Eosinphils 0.4 thou/uL (0.0-0.7); #Lymphocytes 1.5 thou/uL (1.20-3.40); #Monocytes 0.7 thou/uL (0.11-0.59); #Neutrophils 4.2 thou/uL (1.40-6.50); %Basophils 0.2 % (0.0-1.0); %Eosinophils 6.6 % (0.0-10.0); %Lymphocytes 21.5 % (21.0-51.0); %Monocytes 10.6 % (0.0-10.0); %Neutrophils 61.2 % (42.0-75.0); Mean Corpuscular HGB CONC 31.3 g/dL (32.0-36.0); Mean Corpuscular Volume 98.9 fL (78.0-98.0); Mean Platelet Volume 8.1 fL (7.4-10.4); Platelet Count 245 thou/uL (130-400); RBC Distribution Width 15.8 % (11.5-14.5); Red Blood Cell (RBC) Count 3.22 mill/uL (4.20-5.40); White Blood Cell (WBC) Count 6.9 thou/uL (4.8-10.8)
[2018-12-17 07:11] LABS: Anion Gap 16 mmol/L (10-20); BUN (Urea Nitrogen) Less than 4 mg/dL (9.8-20.1); Calc. Creatinine Clearance 123 mL/min (70-130); Carbon Dioxide 17 mmol/L (23-31); Chloride 110 mmol/L (98-107); Estimated GFR-MDRD Greater than 90; Glucose 67 mg/dL (80-115); Potassium 3.6 mmol/L (3.5-5.1); Sodium 139 mmol/L (136-145)
[2018-12-17] MEDS: NS 0.9% w/ 20 MEQ KCL 1,000 ML IV SCH ×4 (07:59→23:40)
[2018-12-17] MEDS: Enoxaparin Sodium 40 MG/0.4 ML SYRINGE SC SCH (07:59)
--- NOTE | 2018-12-17 09:44 | PRG ---
DATE OF SERVICE: 12/17/2018 SUBJECTIVE: The patient is somewhat sleepy, but arousable. She did eat some pudding yesterday. She thinks she is more willing to eat today. OBJECTIVE: VITAL SIGNS: Temperature 97.5, pulse 110, respiratory rate 24, blood pressure 125/65. CHEST: Clear. CARDIOVASCULAR: Regular rate and rhythm without murmurs or gallops. ABDOMEN: Benign. LABORATORY DATA: Shows a white blood cell count of 6.9, hemoglobin 10, hematocrit 31.9. Chemistry significant for a CO2 of 17, glucose 67, creatinine 0.47. Pathology is pending. ASSESSMENT: 1. Severe distal esophagitis. 2. Lung cancer. 3. Chronic obstructive pulmonary disease. RECOMMENDATIONS: 1. Continue IV metoclopramide. 2. Continue Protonix infusion. 3. Await histopathology. 4. Dr. Prado is covering. Job ID: [id number]
[2018-12-17] MEDS ORDERED: ALPRAZolam 0.5 MG TAB PO SCH (21:00)
[2018-12-18] MEDS: Metoclopramide HCl 10 MG/2 ML VIAL IVP SCH ×3 (05:59→21:37)
[2018-12-18] MEDS: Levothyroxine Sodium 75 MCG TAB PO SCH (05:59)
[2018-12-18] MEDS: NS 0.9% w/ 20 MEQ KCL 1,000 ML IV SCH ×2 (06:29→21:44)
[2018-12-18] MEDS ORDERED: ALPRAZolam 0.5 MG TAB PO PRN (07:18)
[2018-12-18 08:01] LABS: #Eosinphils 0.7 thou/uL (0.0-0.7); #Lymphocytes 1.5 thou/uL (1.20-3.40); #Monocytes 0.5 thou/uL (0.11-0.59); #Neutrophils 4.5 thou/uL (1.40-6.50); %Basophils 0.4 % (0.0-1.0); %Eosinophils 9.2 % (0.0-10.0); %Lymphocytes 20.9 % (21.0-51.0); %Monocytes 6.7 % (0.0-10.0); %Neutrophils 62.8 % (42.0-75.0); Hemoglobin 9.8 g/dL (12.0-16.0); Mean Corpuscular HGB CONC 31.8 g/dL (32.0-36.0); Mean Corpuscular Hemoglobin 31.6 pg (27.0-31.0); Mean Corpuscular Volume 99.5 fL (78.0-98.0); Mean Platelet Volume 8.3 fL (7.4-10.4); Platelet Count 205 thou/uL (130-400); Red Blood Cell (RBC) Count 3.11 mill/uL (4.20-5.40); White Blood Cell (WBC) Count 7.2 thou/uL (4.8-10.8)
[2018-12-18 08:20] LABS: Anion Gap 12 mmol/L (10-20); BUN (Urea Nitrogen) Less than 4 mg/dL (9.8-20.1); Calc. Creatinine Clearance 116 mL/min (70-130); Carbon Dioxide 18 mmol/L (23-31); Chloride 110 mmol/L (98-107); Estimated GFR-MDRD Greater than 90; Glucose 116 mg/dL (80-115); Potassium 3.4 mmol/L (3.5-5.1); Sodium 137 mmol/L (136-145)
[2018-12-18] MEDS: Enoxaparin Sodium 40 MG/0.4 ML SYRINGE SC SCH (10:22)
[2018-12-18] MEDS: Pantoprazole 40 MG VIAL IVP SCH ×2 (10:22→21:37)
[2018-12-18] MEDS ORDERED: Lorazepam 0.5 MG TAB PO PRN (19:25)
--- NOTE | 2018-12-18 20:01 | PRG ---
DATE OF SERVICE: 12/18/2018 SUBJECTIVE: I am meeting, Ms. Sesay for the first time today, covering for Dr. Joés Antonio Vidal. Ms. Sesay tells me she is doing better today than yesterday. She has not had any nausea or vomiting. She does have some pain when she is swallowing. This is in the lower chest and is transient. She continues on Protonix 40 mg IV q.12 hours as well as IV Reglan. OBJECTIVE: VITAL SIGNS: Temperature 98.1, pulse 103, blood pressure 134/79, and 98% oxygen saturation on 2 L nasal cannula. GENERAL: No acute distress. HEART: Regular rate and rhythm. LUNGS: Clear to auscultation bilaterally. ABDOMEN: Soft and nontender to palpation. EXTREMITIES: No peripheral edema. LABORATORY STUDIES: WBC 7.2, hemoglobin 9.8, platelets 205. Sodium 137, potassium 3.4, BUN less than 4, creatinine 0.5, glucose 80. ASSESSMENT AND PLAN: 1. Severe distal esophagitis. 2. Lung cancer. 3. Chronic obstructive pulmonary disease. The patient is slowly advancing her diet, seems to be responding to the IV PPI. Recommend continuing to advance diet as tolerated. Upon hospital discharge, I would have her on pantoprazole 40 mg by mouth twice daily. 4. GI will sign off at this time, but please call back anytime with questions or concerns. Job ID: [id number]
[2018-12-19] MEDS: Levothyroxine Sodium 75 MCG TAB PO SCH (06:06)
[2018-12-19] MEDS: Metoclopramide HCl 10 MG/2 ML VIAL IVP SCH ×3 (06:07→21:20)
[2018-12-19] MEDS: Enoxaparin Sodium 40 MG/0.4 ML SYRINGE SC SCH (09:55)
[2018-12-19] MEDS: Sodium Chloride 0.9% (PF) 10 ML VIAL FS PRN (09:56)
[2018-12-19] MEDS: Pot Chloride/Pot Bicarb/Cit Ac 25 mEq Effervescent Tablet PO SCH (09:56)
[2018-12-19] MEDS: Pantoprazole 40 MG VIAL IVP SCH ×2 (09:56→21:20)
[2018-12-19] MEDS ORDERED: Sodium Chloride 0.65% Nasal 44 ML BOT EA NARE PRN (16:14)
[2018-12-20] MEDS: Metoclopramide HCl 10 MG/2 ML VIAL IVP SCH ×3 (05:17→21:56)
[2018-12-20] MEDS: Levothyroxine Sodium 75 MCG TAB PO SCH (05:17)
[2018-12-20 07:58] LABS: Anion Gap 18 mmol/L (10-20); BUN (Urea Nitrogen) Less than 4 mg/dL (9.8-20.1); Calc. Creatinine Clearance 99 mL/min (70-130); Carbon Dioxide 17 mmol/L (23-31); Chloride 104 mmol/L (98-107); Estimated GFR-MDRD Greater than 90; Glucose 71 mg/dL (80-115); Potassium 4.1 mmol/L (3.5-5.1); Sodium 135 mmol/L (136-145)
[2018-12-20] MEDS: Pot Chloride/Pot Bicarb/Cit Ac 25 mEq Effervescent Tablet PO SCH (08:48)
[2018-12-20] MEDS: Enoxaparin Sodium 40 MG/0.4 ML SYRINGE SC SCH (08:48)
[2018-12-20] MEDS: Pantoprazole 40 MG VIAL IVP SCH ×2 (08:48→20:50)
[2018-12-20 10:36] LABS: Band 5 % (5-11); Eosinophils 9 % (0-10); Hemoglobin 10.4 g/dL (12.0-16.0); Hypochromia SLIGHT = 6-15 cells (100X) (0-5/hpf); Lymphocytes 22 % (21-51); MDiff Complete? YES; Mean Corpuscular HGB CONC 31.7 g/dL (32.0-36.0); Mean Corpuscular Hemoglobin 31.6 pg (27.0-31.0); Mean Corpuscular Volume 99.6 fL (78.0-98.0); Mean Platelet Volume 7.9 fL (7.4-10.4); Metamyelocyte 1 % (0-0); Monocytes 13 % (0-10); Myelocyte 1 % (0-0); Neutrophil 49 % (42-75); Platelet Count 251 thou/uL (130-400); Polychromasia SLIGHT = 2-3 cells (100X) (0-2/hpf); RBC Distribution Width 16.5 % (11.5-14.5); Red Blood Cell (RBC) Count 3.29 mill/uL (4.20-5.40); White Blood Cell (WBC) Count 7.3 thou/uL (4.8-10.8)
[2018-12-21] MEDS: Levothyroxine Sodium 75 MCG TAB PO SCH (05:41)
[2018-12-21] MEDS: Metoclopramide HCl 10 MG/2 ML VIAL IVP SCH ×3 (05:41→23:00)
[2018-12-21] MEDS: Pantoprazole 40 MG VIAL IVP SCH ×2 (08:32→20:40)
[2018-12-21] MEDS: Enoxaparin Sodium 40 MG/0.4 ML SYRINGE SC SCH (08:32)
[2018-12-21] MEDS: Pot Chloride/Pot Bicarb/Cit Ac 25 mEq Effervescent Tablet PO SCH (08:32)
[2018-12-21 09:21] LABS: Anion Gap 19 mmol/L (10-20); BUN (Urea Nitrogen) Less than 4 mg/dL (9.8-20.1); Calc. Creatinine Clearance 95 mL/min (70-130); Calcium 9.3 mg/dL (7.8-10.44); Carbon Dioxide 23 mmol/L (23-31); Chloride 101 mmol/L (98-107); Estimated GFR-MDRD Greater than 90; Glucose 71 mg/dL (80-115); Potassium 3.8 mmol/L (3.5-5.1); Sodium 139 mmol/L (136-145)
[2018-12-21] MEDS: Megestrol Acetate 800 MG/20 ML UDCUP PO SCH ×2 (11:29→20:39)
[2018-12-21] MEDS: HYDROcodone/Acetaminophen 5/325 mg Tablet PO PRN ×2 (16:30→23:23)
[2018-12-22] MEDS: Ondansetron PF 4 MG/2 ML Vial SLOW IVP PRN (02:48)
[2018-12-22] MEDS: Levothyroxine Sodium 75 MCG TAB PO SCH (06:36)
[2018-12-22] MEDS: Metoclopramide HCl 10 MG/2 ML VIAL IVP SCH ×3 (06:37→22:18)
[2018-12-22] MEDS: Pot Chloride/Pot Bicarb/Cit Ac 25 mEq Effervescent Tablet PO SCH (08:00)
[2018-12-22] MEDS: Pantoprazole 40 MG VIAL IVP SCH ×2 (08:00→20:40)
[2018-12-22] MEDS: Megestrol Acetate 800 MG/20 ML UDCUP PO SCH ×2 (08:01→20:40)
[2018-12-22] MEDS: Enoxaparin Sodium 40 MG/0.4 ML SYRINGE SC SCH (08:13)
[2018-12-22] MEDS: HYDROcodone/Acetaminophen 5/325 mg Tablet PO PRN (20:37)
[2018-12-23] MEDS: Metoclopramide HCl 10 MG/2 ML VIAL IVP SCH ×3 (06:00→22:37)
[2018-12-23] MEDS: Levothyroxine Sodium 75 MCG TAB PO SCH (06:00)
[2018-12-23] MEDS: Pantoprazole 40 MG VIAL IVP SCH ×2 (08:52→22:36)
[2018-12-23] MEDS: Megestrol Acetate 800 MG/20 ML UDCUP PO SCH ×2 (08:52→20:22)
[2018-12-23] MEDS: Enoxaparin Sodium 40 MG/0.4 ML SYRINGE SC SCH (08:52)
[2018-12-23] MEDS: Pot Chloride/Pot Bicarb/Cit Ac 25 mEq Effervescent Tablet PO SCH (11:45)
[2018-12-23] MEDS: HYDROcodone/Acetaminophen 5/325 mg Tablet PO PRN (20:21)
[2018-12-24] MEDS: HYDROcodone/Acetaminophen 5/325 mg Tablet PO PRN ×2 (01:05→21:02)
[2018-12-24] MEDS: Levothyroxine Sodium 75 MCG TAB PO SCH (05:57)
[2018-12-24] MEDS: Metoclopramide HCl 10 MG/2 ML VIAL IVP SCH ×3 (05:57→21:03)
[2018-12-24 08:22] LABS: Anion Gap 13 mmol/L (10-20); BUN (Urea Nitrogen) 8 mg/dL (9.8-20.1); Calc. Creatinine Clearance 86 mL/min (70-130); Calcium 8.9 mg/dL (7.8-10.44); Carbon Dioxide 25 mmol/L (23-31); Chloride 103 mmol/L (98-107); Estimated GFR-MDRD Greater than 90; Glucose 76 mg/dL (80-115); Potassium 3.2 mmol/L (3.5-5.1); Sodium 138 mmol/L (136-145)
[2018-12-24] MEDS: Megestrol Acetate 800 MG/20 ML UDCUP PO SCH ×2 (09:09→20:46)
[2018-12-24] MEDS: Pot Chloride/Pot Bicarb/Cit Ac 25 mEq Effervescent Tablet PO SCH (09:09)
[2018-12-24] MEDS: Enoxaparin Sodium 40 MG/0.4 ML SYRINGE SC SCH (09:09)
[2018-12-24] MEDS: Pantoprazole 40 MG VIAL IVP SCH ×2 (09:10→20:49)
[2018-12-24 10:38] LABS: Band 4 % (5-11); Eosinophils 5 % (0-10); Hemoglobin 9.9 g/dL (12.0-16.0); Lymphocytes 38 % (21-51); MDiff Complete? YES; Macrocytosis SLIGHT = 6-15 cells (100X) (0-5/hpf); Mean Corpuscular HGB CONC 31.1 g/dL (32.0-36.0); Mean Corpuscular Hemoglobin 31.2 pg (27.0-31.0); Monocytes 20 % (0-10); Neutrophil 32 % (42-75); Platelet Count 270 thou/uL (130-400); Platelet Morphology Comment Appears Adequate; Polychromasia SLIGHT = 2-3 cells (100X) (0-2/hpf); RBC Distribution Width 16.2 % (11.5-14.5); Reactive Lymphocytes 1 % (0-10); Red Blood Cell (RBC) Count 3.18 mill/uL (4.20-5.40); White Blood Cell (WBC) Count 3.4 thou/uL (4.8-10.8)
[2018-12-24] MEDS: Sodium Chloride 0.9% (PF) 10 ML VIAL FS PRN (20:49)
[2018-12-25] MEDS: HYDROcodone/Acetaminophen 5/325 mg Tablet PO PRN ×2 (01:25→21:30)
[2018-12-25] MEDS: Metoclopramide HCl 10 MG/2 ML VIAL IVP SCH ×3 (06:07→21:35)
[2018-12-25] MEDS: Levothyroxine Sodium 75 MCG TAB PO SCH (06:07)
[2018-12-25] MEDS: Enoxaparin Sodium 40 MG/0.4 ML SYRINGE SC SCH (09:25)
[2018-12-25] MEDS: Megestrol Acetate 800 MG/20 ML UDCUP PO SCH ×2 (09:25→21:34)
[2018-12-25] MEDS: Pantoprazole 40 MG VIAL IVP SCH ×2 (09:26→21:42)
[2018-12-25] MEDS: Pot Chloride/Pot Bicarb/Cit Ac 25 mEq Effervescent Tablet PO SCH (09:28)
[2018-12-25] MEDS ORDERED: Pot Chloride/Pot Bicarb/Cit Ac 25 mEq Effervescent Tablet PO SCH (21:00)
[2018-12-26] MEDS: Metoclopramide HCl 10 MG TAB PO SCH ×3 (05:38→21:32)
[2018-12-26] MEDS: Levothyroxine Sodium 75 MCG TAB PO SCH (05:38)
[2018-12-26 06:43] LABS: Anion Gap 14 mmol/L (10-20); BUN (Urea Nitrogen) 11 mg/dL (9.8-20.1); Calc. Creatinine Clearance 80 mL/min (70-130); Calcium 8.9 mg/dL (7.8-10.44); Carbon Dioxide 21 mmol/L (23-31); Chloride 107 mmol/L (98-107); Estimated GFR-MDRD Greater than 90; Glucose 100 mg/dL (80-115); Potassium 3.6 mmol/L (3.5-5.1); Sodium 138 mmol/L (136-145)
[2018-12-26] MEDS: HYDROcodone/Acetaminophen 5/325 mg Tablet PO PRN ×3 (07:02→20:13)
[2018-12-26] MEDS: Potassium Chloride 20 MEQ TAB PO SCH ×2 (08:32→17:53)
[2018-12-26] MEDS: Enoxaparin Sodium 40 MG/0.4 ML SYRINGE SC SCH (08:33)
[2018-12-26] MEDS: Pantoprazole 40 MG VIAL IVP SCH ×2 (08:33→20:08)
[2018-12-26] MEDS: Megestrol Acetate 800 MG/20 ML UDCUP PO SCH ×2 (08:34→20:08)
[2018-12-27] MEDS: HYDROcodone/Acetaminophen 5/325 mg Tablet PO PRN ×2 (00:09→19:57)
[2018-12-27] MEDS: Levothyroxine Sodium 75 MCG TAB PO SCH (05:36)
[2018-12-27] MEDS: Metoclopramide HCl 10 MG TAB PO SCH ×3 (05:36→21:29)
[2018-12-27] MEDS: Potassium Chloride 20 MEQ TAB PO SCH ×2 (08:46→16:49)
[2018-12-27] MEDS: Megestrol Acetate 800 MG/20 ML UDCUP PO SCH ×2 (08:47→19:58)
[2018-12-27] MEDS: Enoxaparin Sodium 40 MG/0.4 ML SYRINGE SC SCH (08:47)
[2018-12-27] MEDS: Pantoprazole 40 MG VIAL IVP SCH ×2 (08:48→19:58)
[2018-12-28] MEDS: HYDROcodone/Acetaminophen 5/325 mg Tablet PO PRN ×2 (01:23→20:00)
[2018-12-28] MEDS: Levothyroxine Sodium 75 MCG TAB PO SCH (06:10)
[2018-12-28] MEDS: Metoclopramide HCl 10 MG TAB PO SCH ×3 (06:10→22:20)
[2018-12-28 06:47] LABS: Anion Gap 11 mmol/L (10-20); BUN (Urea Nitrogen) 8 mg/dL (9.8-20.1); Calc. Creatinine Clearance 89 mL/min (70-130); Calcium 8.8 mg/dL (7.8-10.44); Carbon Dioxide 26 mmol/L (23-31); Chloride 110 mmol/L (98-107); Estimated GFR-MDRD Greater than 90; Glucose 86 mg/dL (80-115); Potassium 3.8 mmol/L (3.5-5.1); Sodium 143 mmol/L (136-145)
[2018-12-28] MEDS: Pantoprazole 40 MG VIAL IVP SCH ×2 (08:07→19:59)
[2018-12-28] MEDS: Potassium Chloride 20 MEQ TAB PO SCH ×2 (08:07→17:13)
[2018-12-28] MEDS: Enoxaparin Sodium 40 MG/0.4 ML SYRINGE SC SCH (08:08)
[2018-12-28] MEDS: Megestrol Acetate 800 MG/20 ML UDCUP PO SCH ×2 (08:08→19:58)
[2018-12-28] MEDS: Docusate 100 MG CAP PO SCH ×2 (08:52→20:00)
[2018-12-28] MEDS: Acetaminophen 325 MG TAB PO PRN (10:24)
[2018-12-28 14:22] VITALS: BMI 23.1
[2018-12-29] MEDS: Metoclopramide HCl 10 MG TAB PO SCH ×2 (05:36→08:03)
[2018-12-29] MEDS: Levothyroxine Sodium 75 MCG TAB PO SCH (05:36)
[2018-12-29 08:00] VITALS: BP 131/80; TEMP 97.8
[2018-12-29] MEDS: Potassium Chloride 20 MEQ TAB PO SCH (08:02)
[2018-12-29] MEDS: Docusate 100 MG CAP PO SCH (08:03)
[2018-12-29] MEDS: Megestrol Acetate 800 MG/20 ML UDCUP PO SCH (08:06)
[2018-12-29] MEDS: Enoxaparin Sodium 40 MG/0.4 ML SYRINGE SC SCH (08:06)
[2018-12-29] MEDS: Pantoprazole 40 MG VIAL IVP SCH (08:06)
== END 2018-12-29 10:19 | disposition home or self-care (01) | DRG 392 ==
LOC: ERS 21:28 → T4-B 12-14 10:23
PROVIDERS: ADMIT Specialist; ATTEND Specialist
PROC: 0DB48ZX Excision of Esophagogastric Junction, Via Natural or Artificial Opening Endoscopic, Diagnostic (ICD-10-PCS; principal; 2018-12-16)
DX: K20.9 Esophagitis, unspecified (principal); C34.90 Malignant neoplasm of unspecified part of unspecified bronchus or lung; E86.0 Dehydration; R11.2 Nausea with vomiting, unspecified; I10 Essential (primary) hypertension; E03.9 Hypothyroidism, unspecified; E78.5 Hyperlipidemia, unspecified; F41.1 Generalized anxiety disorder; I73.9 Peripheral vascular disease, unspecified; J44.9 Chronic obstructive pulmonary disease, unspecified; M19.90 Unspecified osteoarthritis, unspecified site; K44.9 Diaphragmatic hernia without obstruction or gangrene; R00.0 Tachycardia, unspecified; E87.6 Hypokalemia; Z86.718 Personal history of other venous thrombosis and embolism; Z87.891 Personal history of nicotine dependence; Z88.0 Allergy status to penicillin; Z91.041 Radiographic dye allergy status; Z79.82 Long term (current) use of aspirin; Z79.899 Other long term (current) drug therapy
CPT/HCPCS: 36415; 36416; 71045; 71275; 74177; 80048; 80053; 81003; 81015; 82274; 83605; 83880; 84484; 85025; 87045; 87046; 87086; 87324; 87328; 87329; 87338; 87449; 87899; 88305; 88312; 88313; 90471; 90662; 93005; 93010; 93306; 94640; 94760; 96361; 96374; 96375; 96376; C9113; G0008; J1200; J1650; J2001; J2405; J2704; J2765; J2930; J7050; J7620; J8597; Q9966; S0028

== ENCOUNTER 2019-01-11 14:05 | Inpatient (IN) | payer BC ==
[2019-01-11] MEDS ORDERED: methylPREDNISolone Sod Succ/PF 125 MG/2 ML VIAL ONE (14:45)
[2019-01-11] MEDS ORDERED: diphenhydrAMINE 50 MG/ML VIAL ONE (14:45)
--- NOTE | 2019-01-11 15:51 | CT ---
CT ARTERIOGRAM CHEST WITH IV CONTRAST AND 3D MIP IMAGING: Date: 01/11/19 HISTORY: Exertional dyspnea. Chest pain. Cough. COMPARISON: 12/13/18. FINDINGS: There is good contrast opacification of the pulmonary arteries and thoracic aorta. Prominent arterial calcification. Pulmonary hyperinflation, small right lower lobe nodule, and peripheral interstitial thickening are again demonstrated. Long segment thickening of the esophageal wall has resolved. Subtl e fibrosis throughout the mediastinum is otherwise unchanged. IMPRESSION: 1. No CT evidence of pulmonary embolus. 2. Interval decrease in inflammatory appearance of the esophagus. 3. Prominent atherosclerosis. POS: [facility]
[2019-01-11 15:57] LABS: #Basophils 0.1 thou/uL (0.0-0.2); #Eosinphils 0.1 thou/uL (0.0-0.7); #Lymphocytes 1.9 thou/uL (1.20-3.40); #Monocytes 0.5 thou/uL (0.11-0.59); #Neutrophils 3.7 thou/uL (1.40-6.50); %Basophils 1.2 % (0.0-1.0); %Eosinophils 1.2 % (0.0-10.0); %Monocytes 7.9 % (0.0-10.0); %Neutrophils 59.7 % (42.0-75.0); Hemoglobin 10.3 g/dL (12.0-16.0); Mean Corpuscular Hemoglobin 31.2 pg (27.0-31.0); Mean Platelet Volume 9.1 fL (7.4-10.4); Platelet Count 242 thou/uL (130-400); RBC Distribution Width 18.6 % (11.5-14.5); Red Blood Cell (RBC) Count 3.31 mill/uL (4.20-5.40); White Blood Cell (WBC) Count 6.2 thou/uL (4.8-10.8)
[2019-01-11 16:20] LABS: Anisocytosis SLIGHT = 6-15 cells (100X) (0-5/hpf); MDiff Complete? YES; Macrocytosis SLIGHT = 6-15 cells (100X) (0-5/hpf); Ovalocytes SLIGHT = 2-5 cells (100X) (0-1/hpf); Platelet Morphology Comment Appears Adequate; Polychromasia SLIGHT = 2-3 cells (100X) (0-2/hpf); Target Cells SLIGHT = 2-5 cells (100X) (0-1/hpf)
[2019-01-11 16:24] LABS: ALT (SGPT) 31 U/L (8-55); AST (SGOT) 33 U/L (5-34); Albumin 3.2 g/dL (3.4-4.8); Alkaline Phosphatase 75 U/L (40-150); Anion Gap 16 mmol/L (10-20); BUN (Urea Nitrogen) 9 mg/dL (9.8-20.1); Bilirubin, Total 0.6 mg/dL (0.2-1.2); Calc. Creatinine Clearance 0 mL/min (70-130); Calcium 8.6 mg/dL (7.8-10.44); Carbon Dioxide 16 mmol/L (23-31); Chloride 108 mmol/L (98-107); Estimated GFR-MDRD Greater than 90; Globulin 3.3 g/dL (2.4-3.5); Glucose 81 mg/dL (80-115); Potassium 4.7 mmol/L (3.5-5.1); Protein, Total 6.5 g/dL (6.0-8.3); Sodium 135 mmol/L (136-145)
[2019-01-11 22:14] VITALS: BMI 22.3
[2019-01-11] MEDS ORDERED: Acetaminophen 325 MG TAB PO PRN (22:14)
[2019-01-11] MEDS ORDERED: Ondansetron ODT 4 MG TAB SL PRN (22:14)
[2019-01-11] MEDS ORDERED: Ondansetron PF 4 MG/2 ML Vial IVP PRN (22:14)
[2019-01-11] MEDS ORDERED: Sucralfate 1 GM TAB PO SCH (22:30)
[2019-01-11] MEDS ORDERED: Metoclopramide HCl 10 MG TAB PO SCH (22:30)
[2019-01-11] MEDS ORDERED: Pantoprazole 40 MG VIAL IVP SCH (22:30)
[2019-01-11] MEDS: Sodium Chloride 0.9% 1,000 ML IV SCH (23:27)
[2019-01-11] MEDS: Acetaminophen/Codeine 30-300mg Tablet PO PRN (23:34)
--- NOTE | 2019-01-12 01:58 | HP ---
CHIEF COMPLAINT: Hypotension with tachycardia. HISTORY OF PRESENT ILLNESS: The patient is a 63-year-old female, who is currently taking Opdivo for lung cancer. She has been in occupational therapy for 2 weeks now since her last hospitalization, where she has similar symptoms. While at occupational therapy, she began to be very lightheaded, dizzy, and near syncopal. They checked her systolic pressure, it was in the 60s and she was running 128 on her heart rate, so they summoned the EMS to bring her to the emergency room. On further questioning, she states that it has been over 3 days that she has had dizziness upon standing and weakness has been progressive. She denies nausea, vomiting, fever. Cannot stand up to microwave for breakfast without becoming short winded, lightheaded, and dizzy. Mainly lightheaded and dizzy were more than short winded. She is not coughing. Denies chest pain. In the emergency room, she has had fluid resuscitation which is effectively raised her systolic pressure to 150, but has not alleviated the 115 to 120 heart rate. She is generally weak and unable to care for herself as well. Based on this, she is placed in the hospital for further evaluation and treatment options. PAST MEDICAL HISTORY: As mentioned previously, she was hospitalized less than 30 days ago for vomiting and dehydration. She has a history of pericardial effusion, peripheral artery disease, claudication in the peripheral vascular tree, lung cancer, COPD, hypercholesterolemia, prior episodes of tachycardia, vertebral fractures secondary to radiation therapy, left leg DVT, generalized anxiety, nephrolithiasis, past heavy use of tobacco, pleurisy, arthritis, hypothyroidism, and GERD. PAST SURGICAL HISTORY: Includes port placement for chemotherapy, cholecystectomy, bladder surgery, and sections. ALLERGIES: SHE IS ALLERGIC TO AMOXICILLIN AND IODINE. SOCIAL HISTORY: Currently, does not smoke or drink. Has been getting Opdivo chemotherapy to treat her small-cell lung cancer. Denies illicit drug use. MEDICATIONS ON ADMISSION: 1. Levothyroxine 125 mcg daily. 2. Opdivo 40 mg IV every 2 weeks. 3. Protonix 40 mg daily. 4. Reglan 10 mg p.o. q.i.d. REVIEW OF SYSTEMS: CONSTITUTIONAL: She is generally weak, hypotensive, but denies chills, fever. HEENT: Negative for drainage or sores in eyes, nose, or throat, blurred vision, or discharge. CARDIOVASCULAR: Denies chest pain or palpitations, although her heart is racing. RESPIRATORY: Denies cough or shortness of breath. GI: Denies nausea, vomiting, diarrhea, or constipation. : Denies blood in urine or stool, dysuria, or urgency. MUSCULOSKELETAL: Diffusely weak muscles, but no pain in joints. She does have left neck pain in the sternocleidomastoid insertion onto the base of the skull. SKIN: Poor turgor. No acute rashes or lesions. NEUROLOGIC: Does report dizziness, but no trouble with mentation, hypesthesia, or anesthesia. PSYCHIATRIC: Denies any depression or anxiety at this time. HEMOLYTIC/LYMPH: Denies swelling, bruising, or edema. PHYSICAL EXAMINATION: VITAL SIGNS: At the time of admission, vital signs noted in the ER, initially on arrival to the ER, blood pressure is 124/63 with a pulse of 128, she was afebrile, O2 saturation 94% on room air, and temperature 98.2. GENERAL: This is a pale, mildly cachectic female, alert, oriented, and cooperative. HEENT: Normocephalic, atraumatic. Pupils with diminished reactivity to light at 3 mm bilaterally with arcus senilis bilaterally. TMs and nares are clear. Pharynx dry. No acute lesions. NECK: Supple, but tender at the insertion of the left sternocleidomastoid onto the base of skull. She is also tender in the mid body of the muscle itself as if she strained her neck, but there is no significant lymphadenopathy. Chest with generally diminished breath sounds throughout. HEART: Regular rate and rhythm. Tachycardic. No obvious murmur. BREASTS: Deferred. ABDOMEN: Soft, nontender without organomegaly. : Deferred. EXTREMITIES: Without clubbing, cyanosis, or edema. There is generalized weakness noted. SKIN: With poor turgor, somewhat pale. No acute lesions. NEUROLOGIC: Cranial nerves are intact. Gait and cerebellar function are not tested. Sensory exam is grossly intact. Mental status is nonfocal and intact. LABORATORY DATA: Lab work thus far; CTA of the chest shows no acute PE or findings. There is an interval decrease in the appearance of the esophagus, inflammatory process in the esophagus, and there is prominent atherosclerosis noted. WBCs 6.2, hemoglobin 10.3, hematocrit 35.6, with platelets at 242. Sodium 135, potassium 4.7, chloride 108, CO2 of 16, BUN 9, creatinine 0.6, with a glucose of 81. Liver functions unremarkable. Troponin negative. ASSESSMENT: Episodes of hypotension, tachycardia, small cell lung cancer, possible adverse reactions to Opdivo, esophagitis still present with possible vasovagal symptomatology, severe deconditioning. PLAN: Continue the IV hydration. Cardiology consultation for something to suppress her heart rate without lowering her blood pressure. We will also continue proton pump inhibitors at a b.i.d. dosage to minimize acid trauma to the esophagus. May also pre-dissolve sucralfate to coat the esophagus. We will serially re-evaluate the patient and her response to the treatment. Job ID: [id number]
[2019-01-12 05:35] LABS: Anion Gap 10 mmol/L (10-20); BUN (Urea Nitrogen) 8 mg/dL (9.8-20.1); Calc. Creatinine Clearance 90 mL/min (70-130); Calcium 8.9 mg/dL (7.8-10.44); Carbon Dioxide 20 mmol/L (23-31); Chloride 113 mmol/L (98-107); Estimated GFR-MDRD Greater than 90; Glucose 171 mg/dL (80-115); Sodium 139 mmol/L (136-145)
[2019-01-12] MEDS ORDERED: Levothyroxine Sodium 125 MCG TAB PO SCH (06:00)
[2019-01-12] MEDS: Sodium Chloride 0.9% 1,000 ML IV SCH ×3 (07:50→23:25)
[2019-01-12] MEDS ORDERED: Sodium Chloride 0.9% (PF) 10 ML VIAL IV SCH (09:00)
[2019-01-12] MEDS ORDERED: Pantoprazole 40 MG VIAL IVP SCH (09:00)
[2019-01-12] MEDS: Metoclopramide HCl 10 MG TAB PO SCH ×4 (09:19→20:45)
[2019-01-12] MEDS: Sucralfate 1 GM TAB PO SCH ×4 (09:19→20:44)
--- NOTE | 2019-01-12 17:36 | CON ---
DATE OF CONSULTATION: 01/12/2019 REASON FOR CONSULTATION: Tachycardia. PRIMARY CARE PHYSICIAN: Dr. Dayton Corona, is the provider. HISTORY OF PRESENT ILLNESS: Ms. Sesay is a very pleasant 63-year-old woman, seen and evaluated in the past. She has a history of metastatic lung cancer, on therapy, who recently presented with tachycardia. She had a previous hospitalization for nausea, vomiting, and diarrhea. This improved. Recently, she developed hypotension, weakness, fatigue, and tachycardia. No chest pain, pressure, or associated symptoms present. She does have chronic shortness of breath. She is currently on chemotherapeutic agent for lung cancer. PAST MEDICAL HISTORY: As above including previous pericardial effusion, previous DVT, tachycardia, hyperlipidemia, varicose veins, and lung cancer. PAST SURGICAL HISTORY: , cleft palate, cholecystectomy, and wrist reconstruction. FAMILY HISTORY: Negative for CAD. SOCIAL HISTORY: Previous tobacco use. ALLERGIES: IODINE AND AMOXICILLIN. REVIEW OF SYSTEMS: A 10-point review of systems is reviewed and as above, otherwise negative. PHYSICAL EXAMINATION: GENERAL: Patient is a pleasant female, who is in no acute distress. The patient appears their stated age. VITAL SIGNS: Blood pressure 105/60, pulse 119, and temperature 97.6. NEUROLOGIC: The patient is alert and oriented x3 with no focal neurologic deficits. HEENT: Sclerae without icterus. Mouth has moist mucous membranes with normal pallor. NECK: No JVD. Carotid upstroke brisk. No bruits bilaterally. LUNGS: Clear to auscultation with unlabored respirations. BACK: No scoliosis or kyphosis. CARDIAC: Regular rate and rhythm with normal S1 and S2. No S3 or S4 noted. No significant rubs, murmurs, thrills, or gallops noted throughout the precordium. PMI is not displaced. There is no parasternal heave. ABDOMEN: Soft, nontender, nondistended. No peritoneal signs present. No hepatosplenomegaly. No abnormal striae. EXTREMITIES: 2+ femoral and 2+ dorsalis pedis pulses. No cyanosis, clubbing, or edema. SKIN: No gross abnormalities. PERTINENT LABORATORY DATA: Hemoglobin 10.3, hematocrit 35.6, platelet count of 242. Creatinine is 0.61, chloride 113, sodium 135. CT scan of chest negative for PE. IMPRESSION: Tachycardia. Ms. Sesay's TSH is consistent with hyperthyroidism. Treatment options, we will leave it to the discretion of Dr. Dayton Corona. In the meantime, would recommend beta-tessie therapy for suppression. Her overall LVEF does appear normal. She has no recurrent pericardial effusion, which was certainly concerned. We will continue to titrate her beta tessie therapy as long as her blood pressure tolerates. Otherwise, I have no further recommendations. Job ID: [id number]
[2019-01-12] MEDS: Acetaminophen/Codeine 30-300mg Tablet PO PRN (20:44)
[2019-01-12] MEDS ORDERED: Metoprolol Tartrate 25 MG TAB PO SCH (21:00)
[2019-01-12] MEDS ORDERED: RESTORIL 7.5 MG PO SCH (21:00)
[2019-01-13] MEDS: Acetaminophen/Codeine 30-300mg Tablet PO PRN ×2 (02:37→08:54)
[2019-01-13] MEDS ORDERED: Levothyroxine Sodium 125 MCG TAB PO SCH (06:00)
--- NOTE | 2019-01-13 07:26 | PDOC.CTH ---
Cardiology Progress Note - Subjective Feels better. Less palpitations - Objective Vital Signs Temp Pulse Resp BP BP Pulse Ox 01/13/19 02:37 97.7 F 96 20 125/59 L 99 01/12/19 23:25 97.6 F 96 18 106/56 L 100 Weight 137 lb 01/12/19 01/13/19 01/14/19 06:59 06:59 06:59 Intake Total 1257 3791 Output Total 1200 3125 Balance 57 666 - Physical Examination General/Neuro: alert & oriented x3, NAD Neck: no JVD present Lungs: unlabored respirations Heart: PMI normal, RRR Abdomen: NT/ND, soft Extremities: + femoral B - Telemetry Telemetry Rhythm: SR - Labs Result Diagrams: 01/11/19 15:44 01/12/19 04:51 Troponin/CKMB Troponin I Less than 0.010 ng/mL (< 0.028) 01/11/19 15:44 - Assessment/Plan Tachycardia Severe PVD Metastatic lung cancer HR improving on BB Likely secondary to hyperthyoridism Further recommendations on hyperthyroidism per Dr. Corona Can titrate up BB as BP tolerates EF normal via echo; no pericardial effusion
[2019-01-13] MEDS: Sucralfate 1 GM TAB PO SCH ×4 (08:55→21:06)
[2019-01-13] MEDS: Metoclopramide HCl 10 MG TAB PO SCH ×4 (08:55→21:06)
[2019-01-13] MEDS: Sodium Chloride 0.9% 1,000 ML IV SCH ×2 (08:56→15:34)
[2019-01-13] MEDS ORDERED: MENTHOLATUM EA NARE SCH (09:00)
[2019-01-13 09:07] LABS: #Lymphocytes 2.4 thou/uL (1.20-3.40); #Monocytes 0.8 thou/uL (0.11-0.59); #Neutrophils 2.7 thou/uL (1.40-6.50); %Basophils 0.4 % (0.0-1.0); %Eosinophils 0.8 % (0.0-10.0); %Lymphocytes 39.8 % (21.0-51.0); %Monocytes 13.9 % (0.0-10.0); %Neutrophils 45.1 % (42.0-75.0); Hemoglobin 9.5 g/dL (12.0-16.0); Mean Corpuscular HGB CONC 31.4 g/dL (32.0-36.0); Mean Corpuscular Hemoglobin 31.8 pg (27.0-31.0); Mean Platelet Volume 8.5 fL (7.4-10.4); Platelet Count 241 thou/uL (130-400); RBC Distribution Width 18.4 % (11.5-14.5); Red Blood Cell (RBC) Count 2.98 mill/uL (4.20-5.40); White Blood Cell (WBC) Count 5.9 thou/uL (4.8-10.8)
[2019-01-13 09:20] LABS: Anion Gap 11 mmol/L (10-20); BUN (Urea Nitrogen) Less than 4 mg/dL (9.8-20.1); Calc. Creatinine Clearance 106 mL/min (70-130); Calcium 8.8 mg/dL (7.8-10.44); Carbon Dioxide 20 mmol/L (23-31); Chloride 116 mmol/L (98-107); Estimated GFR-MDRD Greater than 90; Glucose 82 mg/dL (80-115); Sodium 144 mmol/L (136-145)
[2019-01-13 09:25] LABS: Potassium 2.8 mmol/L (3.5-5.1)
[2019-01-13] MEDS ORDERED: Metoprolol Tartrate 25 MG TAB PO SCH ×2 (09:45→21:00)
[2019-01-13] MEDS: Potassium Chloride 20 MEQ TAB PO SCH ×2 (10:01→15:41)
[2019-01-13] MEDS ORDERED: ISOVUE-370 76%-LOCM 1 ML ONE (16:54)
[2019-01-13] MEDS ORDERED: Potassium Chloride 20 MEQ TAB PO SCH ×3 (17:00→21:00)
[2019-01-13] MEDS ORDERED: Lorazepam 0.5 MG TAB PO PRN (18:20)
[2019-01-13] MEDS ORDERED: Lorazepam 1 MG TAB PO SCH (18:30)
[2019-01-14 05:20] LABS: Anion Gap 10 mmol/L (10-20); BUN (Urea Nitrogen) 4 mg/dL (9.8-20.1); Calc. Creatinine Clearance 92 mL/min (70-130); Calcium 9.5 mg/dL (7.8-10.44); Carbon Dioxide 24 mmol/L (23-31); Chloride 110 mmol/L (98-107); Estimated GFR-MDRD Greater than 90; Glucose 83 mg/dL (80-115); Sodium 140 mmol/L (136-145)
[2019-01-14] MEDS: Levothyroxine Sodium 50 MCG TAB PO SCH (06:00)
[2019-01-14] MEDS ORDERED: Potassium Chloride 20 MEQ TAB PO SCH (08:00)
[2019-01-14] MEDS: Sucralfate 1 GM TAB PO SCH ×4 (09:00→20:23)
[2019-01-14] MEDS: Metoclopramide HCl 10 MG TAB PO SCH ×4 (09:00→20:24)
[2019-01-14] MEDS: Potassium Chloride 20 MEQ TAB PO SCH ×3 (09:00→17:26)
[2019-01-14] MEDS ORDERED: Metoprolol Tartrate 25 MG TAB PO SCH (09:00)
[2019-01-14] MEDS: Metoprolol Tartrate 25 MG TAB PO SCH ×2 (09:01→20:25)
[2019-01-14] MEDS: Promethazine 25 MG TAB PO SCH (20:24)
[2019-01-14] MEDS ORDERED: Lorazepam 1 MG TAB PO SCH (21:00)
[2019-01-15] MEDS: Acetaminophen/Codeine 30-300mg Tablet PO PRN ×3 (01:34→13:24)
[2019-01-15] MEDS: Levothyroxine Sodium 50 MCG TAB PO SCH (04:24)
[2019-01-15 06:00] LABS: Anion Gap 12 mmol/L (10-20); BUN (Urea Nitrogen) 6 mg/dL (9.8-20.1); Calc. Creatinine Clearance 78 mL/min (70-130); Calcium 9.5 mg/dL (7.8-10.44); Carbon Dioxide 18 mmol/L (23-31); Chloride 110 mmol/L (98-107); Estimated GFR-MDRD 87; Glucose 92 mg/dL (80-115); Potassium 4.4 mmol/L (3.5-5.1); Sodium 136 mmol/L (136-145)
[2019-01-15 06:12] LABS: Anisocytosis SLIGHT = 6-15 cells (100X) (0-5/hpf); Eosinophils 5 % (0-10); Hemoglobin 10.5 g/dL (12.0-16.0); Lymphocytes 30 % (21-51); MDiff Complete? YES; Mean Corpuscular Hemoglobin 32.6 pg (27.0-31.0); Mean Platelet Volume 8.9 fL (7.4-10.4); Monocytes 15 % (0-10); Neutrophil 50 % (42-75); Platelet Count 225 thou/uL (130-400); Platelet Morphology Comment Appears Adequate; Polychromasia SLIGHT = 2-3 cells (100X) (0-2/hpf); RBC Distribution Width 18.1 % (11.5-14.5); Red Blood Cell (RBC) Count 3.23 mill/uL (4.20-5.40)
--- NOTE | 2019-01-15 09:58 | PDOC.CTH ---
Cardiology Progress Note - Subjective The pt seen and examined. No overnight events. No cardiac complaints. - Objective Vital Signs Temp Pulse Resp BP BP Pulse Ox 01/15/19 08:00 97.8 F 96 20 108/58 L 99 01/15/19 04:12 97.7 F 102 H 18 106/60 96 Weight 132 lb 6.4 oz 01/14/19 01/15/19 01/16/19 06:59 06:59 06:59 Intake Total 1688 940 Output Total 600 775 Balance 1088 165 - Physical Examination General/Neuro: alert & oriented x3 Neck: no JVD present Lungs: other: (diminished at bases) Heart: RRR Abdomen: soft Extremities: other: - Telemetry Telemetry Rhythm: SR - Labs Result Diagrams: 01/15/19 04:50 01/15/19 04:50 Troponin/CKMB Troponin I Less than 0.010 ng/mL (< 0.028) 01/11/19 15:44 - Assessment/Plan 1. Tachycardia - [address] up to 120s for < 5 mins around 0730; stable with Metoprolol 25mg BID; 2. Severe PVD 3. Metastatic lung cancer 4. Hyperthyroidism - On Levothyroxine 5. COPD with Home O2 MAR reviewed * EF normal via echo; no pericardial effusion Review of Systems - Review of Systems Constitutional: reports: no symptoms reported EENTM: reports: no symptoms reported Respiratory: reports: no symptoms reported Cardiac (ROS): reports: no symptoms reported ABD/GI: reports: no symptoms reported : reports: no symptoms reported Musculoskeletal: reports: no symptoms reported
[2019-01-15] MEDS: Metoprolol Tartrate 25 MG TAB PO SCH ×2 (10:14→20:42)
[2019-01-15] MEDS: Metoclopramide HCl 10 MG TAB PO SCH ×4 (10:15→20:42)
[2019-01-15] MEDS: Potassium Chloride 20 MEQ TAB PO SCH ×3 (10:15→17:29)
[2019-01-15] MEDS: Sucralfate 1 GM TAB PO SCH ×4 (10:15→20:42)
[2019-01-15] MEDS ORDERED: Cosyntropin 250 MCG VIAL SLOW IVP SCH (10:45)
--- NOTE | 2019-01-15 14:20 | EKG ---
Test Reason : Blood Pressure : / mmHG Vent. Rate : 131 BPM Atrial Rate : 131 BPM P-R Int : 112 ms QRS Dur : 070 ms QT Int : 270 ms P-R-T Axes : 084 068 018 degrees QTc Int : 398 ms Sinus tachycardia Biatrial enlargement Low voltage QRS Abnormal ECG T wave inversions II, III, aVF No significant change from 12/13/2018 Confirmed by VIKTOR BEAVERS DO ([id number]), sports editor COLLIN MARTINEZ ([id number]) on 01/15/2019 2:20:04 PM Referred By: Confirmed By:VIKTOR BEAVERS DO
[2019-01-15] MEDS: Promethazine 25 MG TAB PO SCH (20:41)
[2019-01-16] MEDS: Levothyroxine Sodium 50 MCG TAB PO SCH (02:36)
[2019-01-16] MEDS: Metoprolol Tartrate 25 MG TAB PO SCH ×2 (09:40→20:00)
[2019-01-16] MEDS: Sucralfate 1 GM TAB PO SCH ×4 (09:40→20:01)
[2019-01-16] MEDS: Metoclopramide HCl 10 MG TAB PO SCH ×4 (09:40→20:00)
[2019-01-16] MEDS: Potassium Chloride 20 MEQ TAB PO SCH ×3 (09:40→16:48)
[2019-01-16] MEDS ORDERED: Fludrocortisone Acetate 0.1 MG TAB PO SCH (10:30)
[2019-01-16] MEDS ORDERED: Hydrocortisone 10 mg Tablet PO SCH ×2 (11:30→16:00)
[2019-01-16] MEDS: Acetaminophen/Codeine 30-300mg Tablet PO PRN (12:34)
--- NOTE | 2019-01-16 17:02 | PDOC.CTH ---
Cardiology Progress Note - Subjective The pt seen and examined. No overnight events. No cardiac complaints. The pt stated she feels more energy today. - Objective Vital Signs Temp Pulse Pulse Pulse Pulse Resp BP 01/16/19 14:50 64 16 01/16/19 13:50 97.5 F L 102 H 18 01/16/19 12:02 97.3 F L 99 20 01/16/19 11:20 102 H 109 H 98 127/67 01/16/19 07:44 98.2 F 111 H 16 BP BP BP BP Pulse Ox Pulse Ox Pulse Ox 01/16/19 14:50 01/16/19 13:50 113/57 L 93 L 01/16/19 12:02 106/58 L 97 01/16/19 11:20 123/67 116/67 97 97 01/16/19 07:44 106/58 L 99 Pulse Ox 01/16/19 14:50 01/16/19 13:50 01/16/19 12:02 01/16/19 11:20 97 01/16/19 07:44 Weight 132 lb 6.4 oz 01/15/19 01/16/19 01/17/19 06:59 06:59 06:59 Intake Total 940 720 600 Output Total 775 350 600 Balance 165 370 0 - Physical Examination General/Neuro: alert & oriented x3 Neck: no JVD present Lungs: other: (diminished at bases) Heart: RRR Abdomen: soft Extremities: other: (No edema) - Telemetry Telemetry Rhythm: SR/ST - Labs Result Diagrams: 01/15/19 04:50 01/15/19 04:50 Troponin/CKMB Troponin I Less than 0.010 ng/mL (< 0.028) 01/11/19 15:44 - Assessment/Plan 1. Tachycardia - cont. intermittent tachycardia with with Metoprolol 25mg BID; 2. Severe PVD 3. Metastatic lung cancer 4. Hyperthyroidism - On Levothyroxine 5. COPD with Home O2 MAR reviewed * EF normal via echo; no pericardial effusion Pt. seen and eval. by me. I agree with the A/P by the EMERGING [employer]OLOGIES DIRECTOR Review of Systems - Review of Systems Constitutional: reports: no symptoms reported EENTM: reports: no symptoms reported Respiratory: reports: no symptoms reported Cardiac (ROS): reports: no symptoms reported ABD/GI: reports: no symptoms reported : reports: no symptoms reported
[2019-01-16] MEDS: Promethazine 25 MG TAB PO SCH (20:01)
[2019-01-17] MEDS: Acetaminophen/Codeine 30-300mg Tablet PO PRN (01:50)
[2019-01-17] MEDS: Levothyroxine Sodium 50 MCG TAB PO SCH (05:07)
--- NOTE | 2019-01-17 07:12 | PDOC.CTH ---
Cardiology Progress Note - Subjective P twith increase in BP and HR this am when getting up to go to the BR. OW she has been stable. - Objective Vital Signs Temp Pulse Resp BP BP Pulse Ox 01/17/19 04:00 97.6 F 101 H 20 118/55 L 95 01/16/19 19:45 98.3 F 106 H 16 113/57 L 94 L Weight 130 lb 8 oz 01/16/19 01/17/19 01/18/19 06:59 06:59 06:59 Intake Total 720 1800 Output Total 350 850 Balance 370 950 - Physical Examination General/Neuro: NAD Neck: carotid US brisk, no JVD present Lungs: CTA, unlabored respirations Heart: PMI normal, RRR Abdomen: NT/ND, soft Extremities: + femoral B - Labs Result Diagrams: 01/15/19 04:50 01/15/19 04:50 Troponin/CKMB Troponin I Less than 0.010 ng/mL (< 0.028) 01/11/19 15:44 - Assessment/Plan Tachycardia Metastatic lung cancer Severe PVD hyperthyroidism HR stable except for one episode. Pt on florinef which is needed for orthostasis May need to accept a higher HR in the 90's to 100's given orthostasis at the higher BB dose. BB appropriate in this case given hyperthyroidism. Attempt at increasing slightly to 37.5mg BID If stable, ok to dc this afternoon with op fu
--- NOTE | 2019-01-17 07:34 | PRG ---
DATE OF SERVICE: 01/14/2019 SUBJECTIVE: Ms. Sesay developed orthostatic hypotension. She was on beta-tessie therapy 37.5 mg p.o. b.i.d. with better rate control. This has been decreased to 25 b.i.d. No other symptoms or complaints. OBJECTIVE: VITAL SIGNS: Blood pressure 126/57, pulse 90, temperature 98.6. LUNGS: Clear to auscultation. HEART: Regular rate and rhythm. ABDOMEN: Soft, nontender, nondistended. EXTREMITIES: No edema. PERTINENT LABORATORY DATA: Hemoglobin 9.5. IMPRESSION: 1. Orthostatic hypotension. 2. Tachycardia. 3. Metastatic lung cancer. RECOMMENDATIONS: Continue beta-tessie therapy. The patient does have hyperthyroidism likely from chemotherapy. There was concern for orthostatic hypotension being secondary to chemo. Dr. Corona will discuss with Oncology. Otherwise, I have no further recommendations. Job ID: [id number]
[2019-01-17] MEDS ORDERED: Metoprolol Tartrate 25 MG TAB PO SCH ×2 (08:51→09:00)
[2019-01-17] MEDS ORDERED: Hydrocortisone 10 mg Tablet PO SCH (09:00)
[2019-01-17] MEDS ORDERED: Fludrocortisone Acetate 0.1 MG TAB PO SCH (09:00)
[2019-01-17] MEDS: Sucralfate 1 GM TAB PO SCH ×2 (09:31→12:57)
[2019-01-17] MEDS: Metoclopramide HCl 10 MG TAB PO SCH ×2 (09:32→12:57)
[2019-01-17] MEDS: Potassium Chloride 20 MEQ TAB PO SCH ×2 (09:32→12:57)
[2019-01-17 12:47] VITALS: BP 111/55; TEMP 98.2
== END 2019-01-17 15:46 | disposition home health service (06) | DRG 309 ==
LOC: ERS 14:05 → 2SW 21:40 → OBSVTOIN 21:40 → 2NO 01-16 13:59
PROVIDERS: ADMIT Specialist; ATTEND Specialist
DX: R00.0 Tachycardia, unspecified (principal); C34.90 Malignant neoplasm of unspecified part of unspecified bronchus or lung; T45.1X5A Adverse effect of antineoplastic and immunosuppressive drugs, initial encounter; E05.80 Other thyrotoxicosis without thyrotoxic crisis or storm; J44.9 Chronic obstructive pulmonary disease, unspecified; F17.210 Nicotine dependence, cigarettes, uncomplicated; E78.00 Pure hypercholesterolemia, unspecified; F41.1 Generalized anxiety disorder; K21.9 Gastro-esophageal reflux disease without esophagitis; M19.90 Unspecified osteoarthritis, unspecified site; I73.9 Peripheral vascular disease, unspecified; I95.1 Orthostatic hypotension; Z88.1 Allergy status to other antibiotic agents; Z99.81 Dependence on supplemental oxygen; Z91.041 Radiographic dye allergy status; Z79.899 Other long term (current) drug therapy; Z90.49 Acquired absence of other specified parts of digestive tract
CPT/HCPCS: 36415; 71275; 80048; 80053; 80400; 82533; 84443; 84484; 85025; 93005; 93306; 94640; 96361; 96374; 96375; J0834; J1200; J1642; J2930; J7620; J8597; Q0169; Q9966

== ENCOUNTER 2019-03-09 09:32 | Outpatient (CLI) | payer BC ==
[2019-03-09 10:13] LABS: Estimated GFR-MDRD - POC Greater than 90
--- NOTE | 2019-03-09 13:18 | CT ---
CT CHEST WITH CONTRAST CT ABDOMEN WITH CONTRAST: HISTORY: Lung cancer with lung metastasis. C34.81, malignant neoplasm of overlapping sites of right bronchus and lung. FINDINGS: Severe emphysematous changes throughout the lungs including centrilobular emphysema and some parasept al components in the lung apices. No pneumothorax. No effusion. Right basilar posterior lower lobe pulmonary nodule has not increased in size. No new suspicious pulmonary nodule. No evidence of con solidation. Moderate atherosclerotic plaque mid coronary arteries. No pericardial effusion. No hilar or mediast inal adenopathy. Extensive scarring along the medial aspect of the right upper lobe along the medias tinal pleura. No axillary adenopathy. No internal mammary adenopathy. Mild reservoir effect of the extrahepatic and intrahepatic biliary system from prior cholecystectomy. Severe atherosclerotic plaque of the abdominal aorta with inclusion of the distal abdominal aorta. Adrenal glands are unremarkable. The spleen and pancreas are unremarkable. No retroperitoneal or p eriureteral adenopathy. Adrenal glands are unremarkable. The portal vein is patent. No hydronephrosis. There are compression fractures of the thoracic spine of T4, T5, T7, and T8 with the T7 and T8 fract ures mildly progressed from the comparison examination. At the level of T8, there is posterior epidu ral gas with the gas extending into the left paraspinal soft tissues in the left T8-T9 neural foramin a. There is also some gas in the anterior paravertebral veins. This may be iatrogenic. IMPRESSION: 1. No evidence for disease recurrence within the chest or metastatic disease within the abdomen. 2. Mild progressive T7 and T8 vertebral fractures. 3. New posterior epidural gas at the level of T7 and T8. Extension to the left paraspinal musculatu re and anterior paravertebral veins may iatrogenic in nature. Recommend correlation for recent inter vention. Venous gas from intravenous injection is also a possibility. POS: TPC
== END 2019-03-09 09:33 | disposition home or self-care (01) ==
LOC: CT 09:32
PROVIDERS: ATTEND Internal Medicine Hematology & Oncology
DX: C34.81 Malignant neoplasm of overlapping sites of right bronchus and lung (principal); C79.51 Secondary malignant neoplasm of bone; M84.58XA Pathological fracture in neoplastic disease, other specified site, initial encounter for fracture
CPT/HCPCS: 71260; 74160; 82565

== ENCOUNTER 2019-04-08 11:45 | Day surgery (SDC) | payer BC ==
[2019-04-06 13:46] VITALS: BMI 24.6
[2019-04-08] MEDS ORDERED: Midazolam HCl 2 mg/2 ml Vial ONE (14:21)
[2019-04-08] MEDS ORDERED: Fentanyl 100 MCG/2 ML VIAL ONE (14:21)
[2019-04-08] MEDS ORDERED: PROPOFOL 200 MG/20 ML VIAL ONE (15:18)
[2019-04-08] MEDS ORDERED: Dexamethasone 20 MG/5 ML VIAL ONE (15:18)
[2019-04-08] MEDS ORDERED: Ondansetron PF 4 MG/2 ML Vial ONE (15:18)
[2019-04-08] MEDS ORDERED: Lidocaine 1% PF 5 ML VIAL ONE (15:18)
--- NOTE | 2019-04-08 15:56 | MRI ---
MRI THORACIC SPINE WITHOUT CONTRAST: Multiplanar, multisequential imaging obtained. INDICATION: Back pain. Multiple fractures. COMPARISON: Comparison made to plain films of thoracic spine dated 11/26/2018. FINDINGS: There are compression deformities seen involving the T4, T5, T6, T7, and T8 vertebrae. The most celi re anterior wedge compression is at T5 which was present on the prior exam of 11/26/2018. This compre ssion results in greater than 50% loss of central and anterior height. There is no significant edema within this vertebra indicating a stable compression. Central anterior compression of the T4 vertebra is seen. There is mild edema within this vertebral b marifer. The T6 vertebra shows mild superior end plate compression however height is maintained. There is sarika ma seen within this vertebral body. The T7 vertebra shows significant central and anterior wedge compression with anterior loss of height estimated at greater than 50%. There is edema within this vertebral body. There is mild wedging of the T8 vertebra and there is edema within this vertebra and evidence of mild progression of the superior end plate compression. The degree of compression at T5 appears stable. There is probably progression of central compression at T4 and progression of central and anterior wedging at T7 and T8 when compared to the prior plain films. The edema within the T6 vertebra is concerning for impending compression. There is diffuse disk bulge at T5-T6 which abuts the anterior cord. Mild diffuse disk bulges at T6-7 and T7-T8 flatten the thecal sac and mildly efface the anterior suba rachnoid space. Thoracic cord signal appears normally maintained. IMPRESSION: 1. Compression changes involving the midthoracic vertebrae from T4 through T8 as described above. S table wedge compression at T5 without edema. There is edema within the other vertebral bodies as maria esther cribed above with progression of height loss at these vertebrae as described above. 2. Diffuse prominent disk bulge at T5-T6 impinges on the anterior cord. Mild diffuse bulges at T6-T 7 and T7-T8 are noted as described. POS: OFF
== END 2019-04-08 16:28 ==
LOC: SDC/OP 11:45
PROVIDERS: ATTEND Nurse Practitioner Family
DX: S22.040A Wedge compression fracture of fourth thoracic vertebra, initial encounter for closed fracture (principal); S22.050A Wedge compression fracture of T5-T6 vertebra, initial encounter for closed fracture; S22.060A Wedge compression fracture of T7-T8 vertebra, initial encounter for closed fracture; M51.24 Other intervertebral disc displacement, thoracic region; F17.210 Nicotine dependence, cigarettes, uncomplicated; X58.XXXA Exposure to other specified factors, initial encounter; Z88.0 Allergy status to penicillin; Z91.041 Radiographic dye allergy status; Z88.8 Allergy status to other drugs, medicaments and biological substances; Z79.82 Long term (current) use of aspirin; Z79.51 Long term (current) use of inhaled steroids; Z79.899 Other long term (current) drug therapy
CPT/HCPCS: 72146; J2250; J3010

== ENCOUNTER 2019-06-10 08:41 | Observation (INO) | payer BC ==
[2019-06-10 09:54] LABS: Mean Corpuscular HGB CONC 32.1 g/dL (32.0-36.0); Mean Corpuscular Hemoglobin 34.5 pg (27.0-31.0); Mean Platelet Volume 8.9 fL (7.4-10.4); Platelet Count 224 thou/uL (130-400); Red Blood Cell (RBC) Count 3.78 mill/uL (4.20-5.40); White Blood Cell (WBC) Count 11.3 thou/uL (4.8-10.8)
[2019-06-10 10:10] LABS: ALT (SGPT) 24 U/L (8-55); AST (SGOT) 20 U/L (5-34); Albumin 4.2 g/dL (3.4-4.8); Alkaline Phosphatase 66 U/L (40-150); Anion Gap 14 mmol/L (10-20); BUN (Urea Nitrogen) 16 mg/dL (9.8-20.1); Calc. Creatinine Clearance 0 mL/min (70-130); Carbon Dioxide 34 mmol/L (23-31); Chloride 102 mmol/L (98-107); Estimated GFR-MDRD 78; Globulin 2.6 g/dL (2.4-3.5); Glucose 101 mg/dL (80-115); Protein, Total 6.8 g/dL (6.0-8.3); Sodium 147 mmol/L (136-145)
[2019-06-10 10:14] LABS: Potassium 2.9 mmol/L (3.5-5.1)
--- NOTE | 2019-06-10 10:14 | RAD ---
XR Chest 1 View Portable HISTORY: Syncope. Stage IV lung cancer COMPARISON: 12/16/2018 FINDINGS: The heart size is normal. The lungs are well expanded without focal areas of consolidation, pneumothorax or pleural effusions. There is continued elevation the left hemidiaphragm. Left-sided Port-A-Cath remains in place. IMPRESSION: No radiographic evidence of acute cardiopulmonary process.
[2019-06-10 10:22] LABS: Band 3 % (5-11); Lymphocytes 9 % (21-51); MDiff Complete? YES; Macrocytosis SLIGHT = 6-15 cells (100X) (0-5/hpf); Monocytes 2 % (0-10); Neutrophil 86 % (42-75); Platelet Morphology Comment Appears Adequate
[2019-06-10 10:25] LABS: Bilirubin Negative (Negative); Blood, Urine Negative (Negative); Clarity Clear (Clear); Glucose, Urine (Dipstick) Normal (Negative); Leukocyte Negative Leu/uL (Negative); Nitrite Negative (Negative); Protein, Urine (Dipstick) Negative (Neg-Trace); Urobilinogen Normal mg/dL (Less than 2)
--- NOTE | 2019-06-10 10:40 | CT ---
CT BRAIN WITHOUT CONTRAST: HISTORY:Syncope COMPARISON:08/15/2016 FINDINGS: There are foci of decreased attenuation in the periventricular white matter, consistent with chronic small vessel ischemic disease. No evidence of acute infarct, hemorrhage, midline shift or abnormal extra-axial fluid collections is seen. The ventricular size is appropriate and the basilar cisterns are patent. The bony calvarium is intact. There is a small amount of fluid in the right sphenoid sinus. IMPRESSION: No CT evidence of acute intracranial process.
--- NOTE | 2019-06-10 10:56 | CT ---
CT CERVICAL SPINE WITH CORONAL AND SAGITTAL REFORMATIONS AND NO IV CONTRAST: HISTORY: Syncope, fall, neck pain FINDINGS: Multilevel degenerative changes are present. No fracture, subluxation or facet malalignment is identified. No prevertebral soft tissue swelling is apparent. IMPRESSION: No CT evidence for fracture or traumatic subluxation.
[2019-06-10] MEDS ORDERED: Potassium Chloride 20 MEQ TAB ONE (11:20)
[2019-06-10] MEDS ORDERED: Amlodipine 5 MG TAB ONE (12:33)
[2019-06-10] MEDS ORDERED: Hydrocortisone 10 mg Tablet PO SCH (12:45)
[2019-06-10 13:07] LABS: Troponin I Less than 0.010 ng/mL (< 0.028)
[2019-06-10] MEDS ORDERED: Ondansetron PF 4 MG/2 ML Vial IVP PRN (15:02)
[2019-06-10] MEDS ORDERED: Ondansetron ODT 4 MG TAB SL PRN (15:02)
[2019-06-10] MEDS ORDERED: Acetaminophen 325 MG TAB PO PRN (15:02)
[2019-06-10] MEDS ORDERED: Sodium Chloride 0.9% 1,000 ML IV SCH (15:02)
[2019-06-10 16:08] LABS: Troponin I Less than 0.010 ng/mL (< 0.028)
[2019-06-10 16:09] VITALS: BMI 23.7
[2019-06-10] MEDS ORDERED: hydrALAZINE 20 MG/ML VIAL SLOW IVP PRN (23:26)
[2019-06-11] MEDS ORDERED: Acetaminophen 325 MG TAB PO PRN (01:10)
[2019-06-11] MEDS ORDERED: Ondansetron ODT 4 MG TAB PO PRN (01:10)
[2019-06-11] MEDS ORDERED: Ondansetron PF 4 MG/2 ML Vial IVP PRN (01:10)
[2019-06-11] MEDS ORDERED: Acetaminophen 650 MG Suppository PR PRN (01:10)
[2019-06-11] MEDS ORDERED: Potassium Chloride 20 MEQ TAB PO SCH ×2 (01:30→13:30)
[2019-06-11 01:46] LABS: #Lymphocytes 2.6 thou/uL (1.20-3.40); #Monocytes 0.9 thou/uL (0.11-0.59); #Neutrophils 6.3 thou/uL (1.40-6.50); %Basophils 0.2 % (0.0-1.0); %Eosinophils 0.5 % (0.0-10.0); %Lymphocytes 26.4 % (21.0-51.0); %Monocytes 9.2 % (0.0-10.0); %Neutrophils 63.7 % (42.0-75.0); Hemoglobin 12.1 g/dL (12.0-16.0); Mean Corpuscular HGB CONC 32.1 g/dL (32.0-36.0); Mean Corpuscular Hemoglobin 34.5 pg (27.0-31.0); Mean Platelet Volume 8.9 fL (7.4-10.4); Platelet Count 210 thou/uL (130-400); White Blood Cell (WBC) Count 9.9 thou/uL (4.8-10.8)
[2019-06-11 02:12] LABS: Anion Gap 12 mmol/L (10-20); BUN (Urea Nitrogen) 13 mg/dL (9.8-20.1); Calc. Creatinine Clearance 85 mL/min (70-130); Calcium 9.3 mg/dL (7.8-10.44); Carbon Dioxide 32 mmol/L (23-31); Chloride 103 mmol/L (98-107); Estimated GFR-MDRD 88; Glucose 98 mg/dL (80-115); Sodium 144 mmol/L (136-145)
[2019-06-11] MEDS ORDERED: tiZANidine HCl 4 MG TAB PO PRN (02:28)
[2019-06-11 02:30] LABS: Potassium 2.8 mmol/L (3.5-5.1)
[2019-06-11] MEDS: Levothyroxine Sodium 100 MCG TAB PO SCH (06:04)
[2019-06-11] MEDS: Fludrocortisone Acetate 0.1 MG TAB PO SCH (08:46)
[2019-06-11] MEDS: Hydrocortisone 10 mg Tablet PO SCH ×4 (08:46→20:21)
[2019-06-11] MEDS ORDERED: Famotidine/PF 20 mg/2ml Vial SLOW IVP SCH (09:00)
[2019-06-11 10:55] LABS: Anion Gap 11 mmol/L (10-20); BUN (Urea Nitrogen) 12 mg/dL (9.8-20.1); Calc. Creatinine Clearance 84 mL/min (70-130); Calcium 9.2 mg/dL (7.8-10.44); Carbon Dioxide 30 mmol/L (23-31); Chloride 106 mmol/L (98-107); Estimated GFR-MDRD 87; Glucose 93 mg/dL (80-115); Potassium 3.3 mmol/L (3.5-5.1); Sodium 144 mmol/L (136-145)
--- NOTE | 2019-06-11 13:05 | ULT ---
ULTRASOUND CAROTID DOPPLER STANDARD: HISTORY: Syncope. COMPARISON: None. FINDINGS: Real-time, johnson scale, color Doppler, and spectral analysis of the extracranial carotid and vertebral arteries was performed. Mild elevated peak systolic velocity right internal carotid artery with adjacent atherosclerotic plaq ue. The peak systolic velocity is 140 cm/s. Antegrade of both vertebral arteries. The left internal carotid artery has mild atherosclerotic plaque as well as the external carotid leslie ry. No elevated peak systolic velocity within the left internal carotid artery. IMPRESSION: 1. 50-69% stenosis right internal carotid artery proximally. 2. Extensive atherosclerotic plaque of both carotid bulbs. POS: HOME
--- NOTE | 2019-06-11 14:28 | PDOC.HOSPP ---
- Subjective Encounter Date: 06/11/19 Encounter Time: 11:45 Subjective: pt up in bed no complains, she was sitting up in a chair and had a syncopal episode. - Objective Vital Signs & Weight: Vital Signs (12 hours) Temp Pulse Resp BP BP BP Pulse Ox 06/11/19 12:11 97.9 F 93 20 152/70 H 92 L 06/11/19 07:40 98.5 F 98 15 134/69 92 L 06/11/19 02:43 97.7 F 79 20 172/76 H 163/75 H 184/82 H 96 Weight Weight 142 lb 9.6 oz I&O: 06/10/19 06/11/19 06/12/19 06:59 06:59 06:59 Intake Total 960 240 Balance 960 240 Result Diagrams: 06/11/19 01:38 06/11/19 10:29 Hospitalist ROS - Review of Systems Respiratory: denies: cough, dry, shortness of breath, hemoptysis, SOB with excertion, pleuritic pain, sputum, wheezing, other Cardiovascular: denies: chest pain, palpitations, orthopnea, paroxysmal noc. dyspnea, edema, light headedness, other Gastrointestinal: denies: nausea, vomitting, abdominal pain, diarrhea, constipation, melena, hematochezia, other - Medication Medications: Active Medications Generic Name Dose Route Start Last Admin Trade Name Freq PRN Reason Stop Dose Admin Acetaminophen 650 mg 06/11/19 01:10 06/11/19 12:36 Tylenol PO 650 mg Q4H PRN Administration Headache/Fever/Mild Pain (1-3) Fludrocortisone Acetate 0.1 mg 06/11/19 09:00 06/11/19 08:46 Florinef PO 0.1 mg QAM SHIVA Administration Hydrocortisone 25 mg 06/11/19 09:00 06/11/19 12:36 Cortef PO 25 mg QID SHIVA Administration Levothyroxine Sodium 100 mcg 06/11/19 06:00 06/11/19 06:04 Synthroid PO 100 mcg 0600 SHIVA Administration Pantoprazole Sodium 40 mg 06/11/19 09:00 06/11/19 08:46 Protonix PO 40 mg DAILY SHIVA Administration - Exam Neck: negative: supple, symmetric, no JVD, no thyromegaly, no lymphadenopathy, no carotid bruit, JVD Heart: negative: RRR, no murmur, no gallops, no rubs, normal peripheral pulses, irregular, diminshed peripheral pulses, murmur present, II/IV, III/IV Respiratory - other findings: pain on palpation of chest wall. Hosp A/P (1) Syncope and collapse Code(s): R55 - SYNCOPE AND COLLAPSE Status: Acute (2) Lung cancer Code(s): C34.90 - MALIGNANT NEOPLASM OF UNSP PART OF UNSP BRONCHUS OR LUNG Status: Acute (3) HTN (hypertension) Code(s): I10 - ESSENTIAL (PRIMARY) HYPERTENSION Status: Acute (4) [place] disease Code(s): E27.1 - PRIMARY ADRENOCORTICAL INSUFFICIENCY Status: Acute - Plan carotid doppler indicated 50-69% stenosis, will await echo read. will get ct chest to rule out PE. if all negative she may need a loop monitor. Her orthostatic are negative. Her steroids were increased 3 weeks ago but that would not cause her to have syncope.
--- NOTE | 2019-06-11 17:40 | PRG ---
DATE OF SERVICE: 06/11/2019 SUBJECTIVE: Ms. Sesay is brought in for observation after syncopal episode. The patient had been in a sitting position. She was at the [employer] where she works. She said she had walked up to a chair, she has been sitting in the chair for about 5 minutes. Then, she suddenly lost consciousness without a warning. She has never had an episode like this before. She sees Dr. Brush. She has had some monitoring done in the past, the patient is not clear why. The patient has also had stress testing in the past, unremarkable. OBJECTIVE: VITAL SIGNS: Her blood pressure 132/63, pulse 90 and it is regular. LUNGS: Clear. CARDIAC: Normal S1, normal S2. 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 ASSESSMENT: 1. Syncopal episode suspicious for orthostatic hypotension versus pause or dysrhythmia. So far, no dysrhythmias. 2. [place] disease. She is on replacement therapy. 3. She has very mild orthostatic hypotension changes here, but nothing to really explain her syncope. PLAN: 1. Continue to monitor. 2. Re-evaluate tomorrow, maybe able to go home and get an outpatient monitor versus staying one more day and have either outpatient monitor arrange for or an implantable device. Job ID: [id number]
[2019-06-11] MEDS ORDERED: Aspirin 81 mg Enteric Coated Tablet PO SCH (21:00)
[2019-06-12] MEDS: Levothyroxine Sodium 100 MCG TAB PO SCH (05:19)
[2019-06-12] MEDS: Hydrocortisone 10 mg Tablet PO SCH ×2 (08:45→12:59)
[2019-06-12] MEDS: Fludrocortisone Acetate 0.1 MG TAB PO SCH (08:46)
[2019-06-12 12:06] VITALS: BP 137/65; TEMP 98.4
--- NOTE | 2019-06-12 12:11 | PRG ---
DATE OF SERVICE: 06/12/2019 SUBJECTIVE: Ms. Sesay had no episodes of lightheadedness or dizziness. There have been no dysrhythmias. The patient does have orthostatic hypotension. OBJECTIVE: VITAL SIGNS: Her blood pressure was 163/76 sitting, 172/78 supine, 115/77 standing. LUNGS: Clear. CARDIAC: Normal S1, normal S2. ABDOMEN: Soft and nontender. ASSESSMENT: 1. Syncopal episode of uncertain etiology. May have been orthostatic hypotension; however, the patient had episode in the sitting position. 2. No dysrhythmia since being monitored here since Thursday. PLAN: 1. She is to go home and come back to our office tomorrow to get an outpatient event monitor. She will be seen by Dr. Brush. 2. Resume other medicines and continue the same medicine. 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 She is on replacement therapy for that. 3. She has been instructed not to drive at this time due to her syncopal episode of unknown etiology. Job ID: [id number]
--- NOTE | 2019-06-13 00:04 | DIS ---
DATE OF ADMISSION: 06/10/2019 DATE OF DISCHARGE: 06/12/2019 DISCHARGE DIAGNOSES: 1. Syncope. 2. Hypertension. 3. [place]'s disease. HOSPITAL COURSE: The patient is a 63-year-old female, who initially presented to the hospital with a syncopal episode. The patient underwent a carotid Doppler, which indicated 50% to 69% stenosis of the right internal carotid artery and extensive atherosclerotic plaque in both carotid bulbs. She also had an echocardiogram, which indicated an EF of 60% to 65%, mild concentric left ventricular hypertrophy, moderately elevated pulmonary artery pressure. The patient also had orthostatics initially, they were negative. She had not recently started on any new medication except for her steroid, which was increased 3 weeks ago. She was seen by Cardiology, most likely will undergo a loop monitor placement tomorrow since we do not have an etiology for her syncopal episode. HOME MEDICATIONS: Her home medications will be as of the following. She is going to be discharged on; 1. A new medication of pravastatin 20 mg at bedtime given extensive amount of plaque. 2. Florinef 0.1 q.a.m. 3. Cortef 25 q.i.d. 4. Tylenol 4 one q.6 hours p.r.n. 5. Zanaflex 4 mg q.6 hours p.r.n. 6. Aspirin 81 mg daily. 7. Synthroid 100 mcg daily. 8. Protonix 40 mg daily. PHYSICAL EXAMINATION: VITAL SIGNS: Temperature of 98.6, pulse 84, respiratory rate 15, O2 saturation 95% on room air, blood pressure 137/65. GENERAL: She is awake, alert, and oriented x3, does not appear in distress. CV: S1, S2 present. No murmurs, rubs, or gallops. ABDOMEN: Soft and nontender. Bowel sounds are present x2. Again, she will be discharged home. She will follow up with Cardiology for a loop monitor placement and her primary care. Job ID: [id number]
--- NOTE | 2019-06-13 07:40 | HP ---
TIME OF ADMISSION: 12 a.m. PRIMARY CARE PHYSICIAN: Dr. Lowery. CHIEF COMPLAINT: Syncope. HISTORY OF PRESENT ILLNESS: Ms. Sesay is a very pleasant 63-year-old woman, who presents to the emergency department this evening after having a syncopal episode. The patient states she was at work when she suddenly felt lightheaded. She sat down in a chair and then she went to put her drink down on a desk. She collapsed and fell forward. She denies having any preceding chest pain or a spinning sensation, but does report feeling lightheaded. Denies any shortness of breath. She has been feeling well in recent days and denies any recent fevers, chills, or sweats. She reports drinking lot of fluids and staying well hydrated. She reports having issues with orthostatic hypotension in the past and had been diagnosed with Ravia's disease. At this time, her main complaint is some discomfort in the center of her chest which she states is sore to touch and feels it was due to falling onto a chair when she collapsed. She denies any difficulty with her breathing. REVIEW OF SYSTEMS: All other review of systems are negative. PAST MEDICAL HISTORY: 1. Shailesh's disease. 2. COPD. 3. Hypothyroidism. 4. History of lung cancer. 5. GERD. PAST SURGICAL HISTORY: 1. . 2. Cholecystectomy. SOCIAL HISTORY: The patient lives alone. She previously smoked, but quit after being diagnosed with lung cancer. SOCIAL HISTORY: The patient reports smoking one pack per day previously. Currently, she does not smoke. Denies any alcohol use or illicit drug use. ALLERGIES: 1. AMOXICILLIN. 2. IODINE CONTRAST. 3. LORAZEPAM. CURRENT MEDICATIONS: 1. Cortef. 2. Fludrocortisone. 3. Tylenol with codeine. 4. Tizanidine. 5. Pantoprazole. 6. Levothyroxine. PHYSICAL EXAMINATION: GENERAL: The patient appears well developed, well nourished, is in no acute distress. VITAL SIGNS: Temperature 97.6, pulse 80, respirations 20, O2 saturation 95% on room air, blood pressure 153/71. HEENT: Normocephalic. The patient with notable bruising along the left side of her chin due to her fall. No facial tenderness. No significant hematomas or contusions. No tenderness of her jaw. Full range of motion. No bone deformities. Pupils are equal, round, reactive to light. Sclerae without icterus. Oropharynx is clear. NECK: Supple. LUNGS: Clear to auscultation bilaterally without wheezes, rales, or rhonchi. CARDIAC: Regular rate and rhythm. Sternum tender to light palpation, but no bony deformities and chest x-ray was unremarkable. No bruising. ABDOMEN: Soft, nontender, nondistended. Normoactive bowel sounds present. EXTREMITIES: No lower leg swelling or edema. NEUROLOGIC: Alert and oriented x3. No neuro deficits. Power 5/5 in all limbs. LABORATORY DATA: White blood count 11.3, hemoglobin 13, hematocrit 40, platelets 224. Sodium 147, potassium 2.9, BUN 16, creatinine 0.75. GFR is 78, glucose 101, total bilirubin 1, AST 20, ALT 24, alkaline phosphatase 66. Troponin 1 negative x2. Albumin 4.2. Cortisol 17.90. Urinalysis negative. IMAGING DATA: Chest x-ray was performed on 03/23, no evidence of acute cardiopulmonary process. CT of the brain from 06/20/2019, no CT evidence of acute intracranial process. Cervical spine CT, 06/20/2019, no CT evidence for fracture or traumatic subluxation. IMPRESSION AND PLAN: Ms. Sesay is a very pleasant 63-year-old woman, who has had a syncopal episode earlier this evening, who has been referred for management of the following; 1. Syncope. The patient without any preceding symptoms. Does have a history of orthostatic blood pressures which were deemed to be associated with Ravia's disease diagnosed in December 2018. We will check orthostatic blood pressure. We will request an echo and carotid Dopplers. EKG done in the emergency department and showed normal sinus rhythm with a heart rate of 79. There were normal ST segments and inverted T-waves involving the inferior leads. We will continue to trend troponin. Urinalysis is negative and no evidence of respiratory tract infection as per chest x-ray. We will continue to monitor. Day Team to decide if Cardiology input needed. 2. Hypertension. We will resume home medications and monitor blood pressure. 3. Hypothyroidism. We will resume Synthroid. We will check TSH with morning labs. 4. Hypokalemia. The patient with significantly low potassium of 2.9. We will replace and repeat electrolytes. We will also add on magnesium and replace as necessary. 5. Gastrointestinal prophylaxis with famotidine. 6. Deep venous thrombosis prophylaxis with mechanical SCDs. 7. Code status is full. Surrogate decision maker is her son, Shorty Sesay. The patient's case discussed with attending who agrees upon care as described above. Job ID: [id number]
== END 2019-06-12 13:45 | disposition home or self-care (01) ==
LOC: ERS 08:41 → ERHOLD 12:15 → 2SW 15:13
PROVIDERS: ADMIT Internal Medicine; ATTEND Internal Medicine
DX: R55 Syncope and collapse (principal); E27.1 Primary adrenocortical insufficiency; I10 Essential (primary) hypertension; E03.9 Hypothyroidism, unspecified; J44.9 Chronic obstructive pulmonary disease, unspecified; K21.9 Gastro-esophageal reflux disease without esophagitis; C34.90 Malignant neoplasm of unspecified part of unspecified bronchus or lung; E87.6 Hypokalemia; I65.21 Occlusion and stenosis of right carotid artery; Z87.891 Personal history of nicotine dependence; Z79.52 Long term (current) use of systemic steroids; Z79.82 Long term (current) use of aspirin; Z79.899 Other long term (current) drug therapy; Z88.0 Allergy status to penicillin; Z88.8 Allergy status to other drugs, medicaments and biological substances; Z91.041 Radiographic dye allergy status
CPT/HCPCS: 36415; 70450; 71045; 72125; 80048; 80053; 81003; 82533; 83605; 83735; 84484; 85025; 93005; 93306; 93880; G0378; J0360

== ENCOUNTER 2019-06-14 08:58 | Outpatient (CLI) | payer BC ==
--- NOTE | 2019-06-14 11:04 | CT ---
CT CHEST AND ABDOMEN AND PELVIS WITH IV CONTRAST: INDICATIONS: Lung cancer followup. COMPARISON: CT chest and abdomen from 03/09/2019. TECHNIQUE: Oral contrast is administered. Multiplanar reconstruction. FINDINGS: CHEST: The lungs show chronic parenchymal change. Hyperexpansion and early emphysematous change is noted, which appears stable. There is a 5 mm nodule in the posterior right lower lobe, which is stable. No effusion or infiltrate . No evidence of new pulmonary mass. The mediastinum is unremarkable. The thoracic aorta shows atherosclerotic change without dissection or aneurysm. Review of the osseous structures shows vertebroplasty changes have occurred since the prior exam, at T6, T7, and T8. There are compression deformities at T4 and T5 with moderately severe compression at T5, which appears to have progressed since the prior exam. The other thoracic vertebrae maintain height and alignment and exhibit normal density. ABDOMEN AND PELVIS: The liver, spleen and pancreas are unremarkable. The adrenal glands are normal. The kidneys are unremarkable. The small bowel loops show nonspecific distention. There is stool throughout the colon. The aorta shows diffuse atherosclerotic change. There is occlusion of the distal abdominal aorta, ju st above the aortic bifurcation. This was described on a prior CT abdomen and pelvis from September 05. Images through the pelvis show a distended bladder, which is unremarkable. Uterus and adnexa are unr emarkable. No mass or adenopathy. The lumbar vertebrae maintain height and alignment with mild dege nerative changes. Degenerative disk changes at L5-S1. The pelvis shows no focal bony lesion. IMPRESSION: 1. Chronic lung parenchymal changes appear stable. A nodule in the posterior right lower lobe is st able. 2. Vertebroplasty changes in the thoracic spine since the prior examination, involving T6, T7, and T 8. Compression deformities at T4 and T5, as described. 3. Occlusion of the lower abdominal aorta is again noted and has been previously described. 4. Nonspecific small bowel distention. Stool throughout the colon may indicate constipation. 5. Otherwise no evidence of mass or acute process. POS: OFF
== END 2019-06-14 08:59 | disposition home or self-care (01) ==
LOC: CT 08:58
PROVIDERS: ATTEND Internal Medicine Hematology & Oncology
DX: C34.81 Malignant neoplasm of overlapping sites of right bronchus and lung (principal); C79.51 Secondary malignant neoplasm of bone; M80.80XD Other osteoporosis with current pathological fracture, unspecified site, subsequent encounter for fracture with routine healing; R91.1 Solitary pulmonary nodule; M43.9 Deforming dorsopathy, unspecified; K63.89 Other specified diseases of intestine; I70.0 Atherosclerosis of aorta; Z98.890 Other specified postprocedural states
CPT/HCPCS: 71260; 74177

== ENCOUNTER 2019-08-02 08:57 | Outpatient (CLI) | payer BC ==
[2019-08-02 09:32] LABS: Estimated GFR-MDRD - POC Greater than 90
--- NOTE | 2019-08-02 10:36 | CT ---
CTA CHEST WITH CONTRAST, AND 3-D VOLUME RENDERING CLINICAL INDICATION: Short of breath; Elevated D-dimer Comparison exam: 06/14/2019 FINDINGS: Pulmonary embolus:No significant filling defect is identified within the pulmonary arteries. Thoracic aorta is non aneurysmal, with scattered atherosclerotic vascular calcification. Pulmonary parenchymal consolidation:Redemonstration of findings of pulmonary fibrosis and COPD. Stable subpleural nodule of the right lower lobe, posteriorly, 5 mm in size. Pleural effusion: None Pneumothorax: None Osseous structures: Stable. IMPRESSION: 1. No acute pulmonary embolus. 2. Stable 5 mm subpleural right lower lobe pulmonary nodule. 3. Stable findings of COPD/pulmonary fibrosis. Transcribed Date/Time: 08/02/2019 11:12 AM
== END 2019-08-02 08:58 | disposition home or self-care (01) ==
LOC: CT 08:57
PROVIDERS: ATTEND Specialist
DX: C34.91 Malignant neoplasm of unspecified part of right bronchus or lung (principal); R06.00 Dyspnea, unspecified; R91.1 Solitary pulmonary nodule; J44.9 Chronic obstructive pulmonary disease, unspecified; J84.10 Pulmonary fibrosis, unspecified
CPT/HCPCS: 71275; 82565

== ENCOUNTER 2019-11-02 13:01 | Outpatient (CLI) | payer BC ==
--- NOTE | 2019-11-02 13:50 | MMO ---
Bilateral MAMMO Bilat Screen [facility]. CLINICAL HISTORY: Patient is 63 years old and is seen for screening. The patient has no family history of breast cancer. The patient has a history of lung cancer in July,. VIEWS: The views performed were: bilateral craniocaudal with tomosynthesis; bilateral mediolateral oblique with tomosynthesis; and left mediolateral oblique. FILMS COMPARED: The present examination has been compared to prior imaging studies performed at [facility] on 07/07/2014, 07/09/2015, 07/10/2016 and 07/13/2017. This study has been interpreted with the assistance of computer-aided detection. MAMMOGRAM FINDINGS: There are scattered fibroglandular densities. There are no suspicious masses, suspicious calcifications, or new areas of architectural distortion. IMPRESSION: THERE IS NO MAMMOGRAPHIC EVIDENCE OF MALIGNANCY. A ROUTINE FOLLOW-UP MAMMOGRAM IN 1 YEAR IS RECOMMENDED. THE RESULTS OF THIS EXAM WERE SENT TO THE PATIENT. ACR BI-RADS Category 1 - Negative MAMMOGRAPHY NOTE: 1. A negative mammogram report should not delay a biopsy if a dominant of clinically suspicious mass is present. 2. Approximately 10% to 15% of breast cancers are not detected by mammography. 3. Adenosis and dense breasts may obscure an underlying neoplasm. Reported by: GENNA SILVEIRA MD Electonically Signed: [id number]
== END 2019-11-02 13:02 | disposition home or self-care (01) ==
LOC: BICMAMMO 13:01
PROVIDERS: ATTEND Nurse Practitioner Family
DX: Z12.31 Encounter for screening mammogram for malignant neoplasm of breast (principal); N64.4 Mastodynia; Z85.118 Personal history of other malignant neoplasm of bronchus and lung
CPT/HCPCS: 77063; 77067

== ENCOUNTER 2020-03-28 07:46 | Outpatient (CLI) | payer BC ==
--- NOTE | 2020-03-28 09:41 | CT ---
EXAM: CT of the chest with contrast CT of the abdomen and pelvis with contrast HISTORY: Lung cancer with bone metastases COMPARISON: 09/30/2019 TECHNIQUE: 1. Multiple contiguous axial images were obtained in a CT the chest with contrast. Coronal and sagitt al reformats were performed. 2. Multiple contiguous axial images were obtained and a CT of the abdomen and pelvis with contrast. O ral contrast was administered. Coronal and sagittal reformats were performed. FINDINGS: CT CHEST: HEART: Normal in size without focal cardiac abnormality. Calcifications in the coronary arteries. MEDIASTINUM: No hilar or mediastinal lymphadenopathy. LUNGS: Scarring is seen in the bilateral hilar regions, unchanged. There is a stable 4 to 5 mm nodule in the right lower lobe on image 38 of 50. No focal infiltrates are appreciated. Emphysematous changes. PLEURAL SPACE: No pneumothorax or pleural effusion. CHEST WALL SOFT TISSUES: Unremarkable CT ABDOMEN/PELVIS: ABDOMEN: LIVER: within normal limits. BILE DUCTS: Normal caliber. GALLBLADDER: Removed PANCREAS: within normal limits. SPLEEN: within normal limits. ADRENALS: within normal limits. KIDNEYS: within normal limits. PELVIS: REPRODUCTIVE ORGANS: No pelvic masses. URETERS: within normal limits. BLADDER: within normal limits. PERITONEUM: No ascites or free air, no fluid collection. BOWEL: Normal caliber. MESENTERY AND RETROPERITONEUM: No enlarged mesenteric or retroperitoneal lymph nodes. VESSELS: There is stable occlusion of the aorta just above the bifurcation. ABDOMINAL WALL: within normal limits. OSSEOUS STRUCTURES: Degenerative changes and vertebroplasty cement in the spine. There is stable scle rosis of the mid thoracic vertebral bodies. IMPRESSION: 1. No evidence of intra-abdominal/pelvic recurrent or metastatic disease 2. Stable aortic occlusion 3. Stable right lower lobe nodule.
[2020-03-28] MEDS ORDERED: Iopamidol 370 76% 100 ML VIAL ONE (15:42)
== END 2020-03-28 07:47 | disposition home or self-care (01) ==
LOC: CT 07:46
PROVIDERS: ATTEND Internal Medicine Hematology & Oncology
DX: C34.81 Malignant neoplasm of overlapping sites of right bronchus and lung (principal); C79.51 Secondary malignant neoplasm of bone; R91.1 Solitary pulmonary nodule; I35.0 Nonrheumatic aortic (valve) stenosis
CPT/HCPCS: 36415; 71260; 74177; 80053; 82565; 85025; Q9967

== ENCOUNTER 2020-07-30 10:24 | Outpatient (CLI) | payer BC ==
--- NOTE | 2020-07-30 10:45 | RAD ---
Exam: Cervical spine 6 views FINDINGS: AP, open-mouth, swimmer's, lateral extension, lateral flexion and lateral neutral views are submitted for interpretation FINDINGS: Predental space is normal. No prevertebral soft tissue swelling. On the lateral projections, the entirety of the cervical spine is not assessed. Moderate degenerative disc disease with loss of disc space height and osteophyte formation at C5-C6. In the neutral position, 1.1 mm of anterolisthesis of C2 upon C3, upon flexion 2.2 mm of anterolisthesis, upon exten deepthi anterolisthesis is approximately 1 mm. Limited evaluation of the lower cervical spine and cervicothoracic junction on the swimmer's view. Th ere appears to be moderate to severe degenerative change at C6-C7. Suboptimal evaluation of the cervicothoracic junction. There appear to be previous vertebroplasty changes in the upper thoracic spine, incompletely evaluate d. On the AP projection there is multilevel facet arthropathy. Calcifications in the left and right neck compatible with atherosclerotic disease. On the open-mouth projection, limiting evaluation of the odontoid process. Lateral masses of C1 and C 2 articulate appropriately. Partially visualized Mediport catheter. IMPRESSION: Incomplete evaluation of the cervical spine. Multilevel degenerative changes as described above. Transcribed Date/Time: 07/30/2020 11:32 AM
== END 2020-07-30 10:25 | disposition home or self-care (01) ==
LOC: BICRAD 10:24
PROVIDERS: ATTEND Nurse Practitioner Family
DX: M54.2 Cervicalgia (principal); M47.812 Spondylosis without myelopathy or radiculopathy, cervical region; M50.322 Other cervical disc degeneration at C5-C6 level
CPT/HCPCS: 72050

== ENCOUNTER 2020-09-11 07:57 | Outpatient (CLI) | payer BC ==
[2020-09-11] MEDS ORDERED: Iopamidol 370 76% 100 ML VIAL ONE (10:30)
--- NOTE | 2020-09-11 10:41 | CT ---
CT OF CHEST AND ABDOMEN AND PELVIS PERFORMED WITH INTRAVENOUS CONTRAST ENHANCEMENT: HISTORY: Lung cancer with bone metastases. Followup history of radiation of chemotherapy. COMPARISON: A 03/28/2020 exam. FINDINGS: There are severe emphysematous lung changes. Parenchymal changes in paramediastinal location in the upper lobe regions is probably related to previous radiation. The 5 mm right lower lobe pulmonary no dule seen on axial image 38 is stable. There are no new nodules identified. No infiltrative lung pr ocess. There is no significant mediastinal or hilar adenopathy. Coronary calcification is noted. No signif icant axillary adenopathy. CT OF ABDOMEN PERFORMED WITH CONTRAST ENHANCEMENT: The liver shows a suggestion of an element of fatty change. No focal lesions. The spleen and pancre as regions are unremarkable. Gallbladder has been removed. Right and left adrenal glands and right and left kidneys are normal in size. There is no significant periaortic or mesenteric lymphadenopathy. Aortic occlusion is again noted. CT OF PELVIS PERFORMED WITH CONTRAST ENHANCEMENT: No evidence of adenopathy, mass, or free fluid. Review of osseous structures shows vertebroplasty changes in the thoracic spine. There is diffuse [place] demineralization noted. Compression changes of the upper thoracic vertebral bodies are similar to the previous exam. These changes at these levels are associated with sclerotic bony change also sim ilar to the previous study. IMPRESSION: 1. Stable overall exam. 2. Stable 5 mm right lower lobe pulmonary nodule. 3. Severe emphysematous lung change. 4. Stable occlusion of the infrarenal abdominal aorta. 5. Multilevel vertebroplasty changes of the thoracic spine involving T6, T7, and T8 vertebral bodies and also compression changes of some of the upper thoracic vertebral bodies with associated bony scl erosis stable as compared to the prior study. POS: ROSSY
== END 2020-09-11 07:58 | disposition home or self-care (01) ==
LOC: CT 07:57
PROVIDERS: ATTEND Internal Medicine Hematology & Oncology
DX: C34.81 Malignant neoplasm of overlapping sites of right bronchus and lung (principal); C79.51 Secondary malignant neoplasm of bone; R91.1 Solitary pulmonary nodule; I74.09 Other arterial embolism and thrombosis of abdominal aorta; M89.8X8 Other specified disorders of bone, other site; Z98.890 Other specified postprocedural states
CPT/HCPCS: 71260; 74177; 82565

== ENCOUNTER 2020-12-10 13:54 | Inpatient (IN) | payer BC, MEDICARE ==
[2020-12-10] MEDS ORDERED: Ketorolac Tromethamine 30 MG/ML VIAL ONE (15:58)
[2020-12-10] MEDS ORDERED: Ketorolac Tromethamine 30 MG/ML VIAL IVP PRN (20:56)
[2020-12-10] MEDS ORDERED: Lorazepam 2 MG/ML VIAL SLOW IVP PRN (20:56)
[2020-12-10] MEDS ORDERED: tiZANidine HCl 4 MG TAB PO PRN (20:58)
[2020-12-10] MEDS ORDERED: HYDROcodone/Acetaminophen 5/325 mg Tablet PO PRN (20:58)
[2020-12-10] MEDS ORDERED: Ondansetron PF 4 MG/2 ML Vial IVP PRN (20:59)
[2020-12-10] MEDS ORDERED: Zolpidem Tartrate 5 MG TAB PO PRN (20:59)
[2020-12-10] MEDS ORDERED: Simvastatin 10 MG TAB PO SCH (21:00)
[2020-12-10] MEDS: Simvastatin 10 MG TAB PO SCH (23:00)
[2020-12-11] MEDS: Levothyroxine Sodium 88 MCG TAB PO SCH (05:34)
[2020-12-11 08:02] LABS: #Eosinphils 0.2 thou/uL (0.0-0.7); #Lymphocytes 2.1 thou/uL (1.20-3.40); #Monocytes 0.8 thou/uL (0.11-0.59); #Neutrophils 2.7 thou/uL (1.40-6.50); %Basophils 0.3 % (0.0-1.0); %Eosinophils 3.3 % (0.0-10.0); %Lymphocytes 36.7 % (21.0-51.0); %Monocytes 13.2 % (0.0-10.0); %Neutrophils 46.5 % (42.0-75.0); Hemoglobin 11.7 g/dL (12.0-16.0); Mean Corpuscular HGB CONC 33.2 g/dL (32.0-36.0); Mean Platelet Volume 9.2 fL (7.4-10.4); Platelet Count 180 thou/uL (130-400); RBC Distribution Width 17.1 % (11.5-14.5); Red Blood Cell (RBC) Count 3.44 mill/uL (4.20-5.40); White Blood Cell (WBC) Count 5.8 thou/uL (4.8-10.8)
[2020-12-11 08:23] LABS: ALT (SGPT) 17 U/L (8-55); AST (SGOT) 25 U/L (5-34); Albumin 3.5 g/dL (3.4-4.8); Alkaline Phosphatase 45 U/L (40-110); Anion Gap 14 mmol/L (10-20); BUN (Urea Nitrogen) 12 mg/dL (9.8-20.1); Bilirubin, Total 0.7 mg/dL (0.2-1.2); Calc. Creatinine Clearance 93 mL/min (70-130); Calcium 8.9 mg/dL (7.8-10.44); Carbon Dioxide 23 mmol/L (23-31); Chloride 107 mmol/L (98-107); Globulin 2.8 g/dL (2.4-3.5); Glucose 89 mg/dL (80-115); Potassium 3.9 mmol/L (3.5-5.1); Protein, Total 6.3 g/dL (5.8-8.1); Sodium 140 mmol/L (136-145)
[2020-12-11] MEDS: Nebivolol HCl 2.5 MG TAB PO SCH (08:36)
[2020-12-11] MEDS ORDERED: Hydrocortisone 10 mg Tablet PO SCH (09:00)
[2020-12-11 10:20] LABS: Bilirubin Negative (Negative); Blood, Urine Negative (Negative); Glucose, Urine (Dipstick) Negative (Negative); Ketone, Urine Negative (Negative); Leukocyte Small (Negative); Nitrite Negative (Negative); Protein, Urine (Dipstick) Negative (Neg-Trace); Urobilinogen 0.2 mg/dL (Less than 2); pH, Urine 6.5 (5.0-9.0)
[2020-12-11 10:22] LABS: Bacteria/HPF Rare-Few HPF (None Seen); Clarity Clear (Clear); RBC/HPF None Seen HPF (0-3); Squamous Epithelial 0-3 HPF (0-3)
[2020-12-11 10:24] LABS: Urine Culture Reflex Yes Yes
[2020-12-11] MEDS ORDERED: Magnevist 469MG/ML 20 ML VIAL ONE (11:09)
[2020-12-11 11:39] LABS: SARS-CoV-2 PCR by NAA Not Detected (NotDetected)
[2020-12-11] MEDS: ALPRAZolam 1 MG TAB PO PRN (12:12)
[2020-12-11] MEDS: Simvastatin 10 MG TAB PO SCH (21:39)
[2020-12-12] MEDS: Levothyroxine Sodium 88 MCG TAB PO SCH (05:55)
[2020-12-12] MEDS: methylPREDNISolone Sod Succ/PF 125 MG/2 ML VIAL IVP SCH ×2 (08:16→21:33)
[2020-12-12] MEDS ORDERED: Tranexamic Acid 1,000 MG in Sodium Chloride 0.9% 250 ML 250 ML IVPB SCH (09:45)
[2020-12-12] MEDS ORDERED: CEFAZOLIN 2 GM in Premix Bag 1 BAG IVPB SCH (09:45)
[2020-12-12] MEDS ORDERED: Vancomycin HCl 1.5 GM in Sodium Chloride 0.9% 250 ML 300 ML IVPB SCH (09:45)
[2020-12-12] MEDS: ALPRAZolam 1 MG TAB PO PRN (11:59)
[2020-12-12] MEDS: Nebivolol HCl 2.5 MG TAB PO SCH (12:20)
[2020-12-12] MEDS: Simvastatin 10 MG TAB PO SCH (21:33)
[2020-12-13] MEDS ORDERED: Sulfameth/Trimethoprim DS 800-160mg TAB PO SCH (00:15)
[2020-12-13] MEDS: Levothyroxine Sodium 88 MCG TAB PO SCH (05:25)
[2020-12-13] MEDS: methylPREDNISolone Sod Succ/PF 125 MG/2 ML VIAL IVP SCH ×2 (07:56→21:27)
[2020-12-13] MEDS: Nebivolol HCl 2.5 MG TAB PO SCH (07:56)
[2020-12-13] MEDS: Sulfameth/Trimethoprim DS 800-160mg TAB PO SCH ×2 (07:56→21:25)
[2020-12-13] MEDS ORDERED: cefTRIAXone\\ROCEPHIN 1 GM in Sodium Chloride 0.9% 100 ML IVPB SCH (08:00)
[2020-12-13] MEDS ORDERED: Fentanyl 100 MCG/2 ML VIAL ONE ×3 (10:28→12:38)
[2020-12-13] MEDS ORDERED: Midazolam HCl 2 mg/2 ml Vial ONE (10:28)
[2020-12-13] MEDS ORDERED: Tranexamic Acid 1,000 MG/10 ML VIAL ONE (10:36)
[2020-12-13] MEDS ORDERED: Vancomycin 1.5 GRAM/300 ML BAG ONE (10:36)
[2020-12-13] MEDS ORDERED: Levofloxacin 500 mg/D5W 100 ml Premix Bag ONE (10:49)
[2020-12-13] MEDS ORDERED: Lidocaine 1.5% w/Epi 1:200K 30 ML VIAL (Epid Use) ONE (10:52)
[2020-12-13] MEDS ORDERED: Tranexamic Acid 1,000 MG in Sodium Chloride 0.9% 250 ML 250 ML IVPB SCH (10:53)
[2020-12-13] MEDS ORDERED: Lidocaine 2% Jelly 5 ML TUBE ONE (10:53)
[2020-12-13] MEDS ORDERED: Ropivacaine 0.2% HCl/PF 20 ML ONE (10:53)
[2020-12-13] MEDS ORDERED: Phenylephrine 10 MG/ML VIAL ONE ×2 (10:53→11:41)
[2020-12-13] MEDS ORDERED: diphenhydrAMINE 50 MG/ML VIAL IM PRN ×2 (11:15→14:19)
[2020-12-13] MEDS ORDERED: Promethazine HCl 25 MG/ML VIAL IM PRN ×2 (11:15→14:19)
[2020-12-13] MEDS ORDERED: HYDROcodone/Acetaminophen 5/325 mg Tablet PO PRN ×2 (11:15)
[2020-12-13] MEDS ORDERED: Ketorolac Tromethamine 30 MG/ML VIAL IVP PRN (11:15)
[2020-12-13] MEDS ORDERED: diphenhydrAMINE 25 MG CAP PO PRN ×2 (11:15→14:19)
[2020-12-13] MEDS ORDERED: Naloxone HCl 0.4 mg/ml Vial IV PRN ×2 (11:15→14:19)
[2020-12-13] MEDS ORDERED: Acetaminophen 500 MG TAB PO PRN (11:15)
[2020-12-13] MEDS ORDERED: Promethazine HCl 25 MG SUPP PR PRN (11:15)
[2020-12-13] MEDS ORDERED: diphenhydrAMINE 50 MG/ML VIAL IVP PRN ×2 (11:15→14:19)
[2020-12-13] MEDS ORDERED: traMADol HCl 50 MG TAB PO PRN ×2 (11:15)
[2020-12-13] MEDS ORDERED: Zolpidem Tartrate 5 MG TAB PO PRN ×2 (11:15→14:19)
[2020-12-13] MEDS ORDERED: fentaNYL Citrate/PF 500 MCG, Bupivacaine 10 ML in Sodium Chloride 0.9% 80 ML EPIDURAL SCH (11:15)
[2020-12-13] MEDS ORDERED: Ondansetron PF 4 MG/2 ML Vial IVP PRN ×2 (11:15→14:19)
[2020-12-13] MEDS ORDERED: Bupivacaine 0.25% 10 ML VIAL EPIDURAL PRN (11:15)
[2020-12-13] MEDS ORDERED: Hydrocerin (Eucerin) Cream 120 gm Jar TOP PRN (11:15)
[2020-12-13] MEDS ORDERED: Naloxone HCl 0.4 mg/ml Vial IVP PRN (11:15)
[2020-12-13] MEDS ORDERED: Albuterol Sulfate HFA (OR ONLY) ONE ×2 (11:25→11:26)
[2020-12-13] MEDS ORDERED: SUGAMMADEX SODIUM 200 MG/2 ML VIAL ONE (11:28)
[2020-12-13] MEDS ORDERED: Hydrocortisone Sod Succ/PF 100 mg/2 ml Vial ONE ×2 (11:31)
[2020-12-13] MEDS ORDERED: PROPOFOL 200 MG/20 ML VIAL ONE (11:34)
[2020-12-13] MEDS ORDERED: Sodium Bicarb 50 MEQ/50 ML Abboject 8.4% SYRINGE ONE (11:34)
[2020-12-13] MEDS ORDERED: EPINEPHrine 1 MG/10 ML Abboject SYRINGE ONE (11:34)
[2020-12-13] MEDS ORDERED: PHENYLEPHRINE-NS 100 MCG/ML 10 ML SYRINGE ONE (11:34)
[2020-12-13] MEDS ORDERED: Dexamethasone 20 MG/5 ML VIAL ONE (11:34)
[2020-12-13] MEDS ORDERED: Rocuronium Bromide 10 MG/ML (10ML VIAL) ONE (11:34)
[2020-12-13] MEDS ORDERED: Norepinephrine 4 MG/4 ML VIAL ONE (11:43)
[2020-12-13] MEDS ORDERED: Fentanyl 100 MCG/2 ML VIAL SLOW IVP SCH (13:00)
[2020-12-13] MEDS ORDERED: HYDROmorphone 10 mg/100 ml CADD IVPB PRN (14:19)
[2020-12-13] MEDS ORDERED: Communication Order-Pharmacy FS SCH (14:30)
[2020-12-13] MEDS: Simvastatin 10 MG TAB PO SCH (21:28)
[2020-12-13] MEDS ORDERED: Phentolamine Mesylate 5 MG VIAL SC SCH (22:45)
[2020-12-13] MEDS ORDERED: Lidocaine 1% w/Epinephrine 1:100K 20 ML VIAL ONE (22:57)
[2020-12-13] MEDS ORDERED: Lidocaine 1% w/Epinephrine 1:100K 20 ML VIAL IJ SCH (23:00)
[2020-12-14] MEDS: Phenylephrine 40 MG in Sodium Chloride 0.9% 250 ML 250 ML IVPB SCH ×2 (00:28→10:13)
[2020-12-14] MEDS: Levothyroxine Sodium 88 MCG TAB PO SCH (06:03)
[2020-12-14 08:44] LABS: Hemoglobin 11.3 g/dL (12.0-16.0); Mean Corpuscular HGB CONC 31.9 g/dL (32.0-36.0); Mean Corpuscular Hemoglobin 33.1 pg (27.0-31.0); Mean Platelet Volume 9.9 fL (7.4-10.4); Platelet Count 141 thou/uL (130-400); RBC Distribution Width 17.8 % (11.5-14.5); Red Blood Cell (RBC) Count 3.41 mill/uL (4.20-5.40)
[2020-12-14] MEDS: Hydrocortisone 10 mg Tablet PO SCH ×2 (08:59→09:01)
[2020-12-14] MEDS: Sodium Chloride 0.9% 1,000 ML IV SCH ×3 (08:59→23:56)
[2020-12-14] MEDS: Nebivolol HCl 2.5 MG TAB PO SCH (09:00)
[2020-12-14] MEDS: Sulfameth/Trimethoprim DS 800-160mg TAB PO SCH ×2 (09:00→20:39)
[2020-12-14] MEDS: methylPREDNISolone Sod Succ/PF 125 MG/2 ML VIAL IVP SCH ×2 (09:02→20:39)
[2020-12-14 09:12] LABS: ALT (SGPT) 62 U/L (8-55); AST (SGOT) 51 U/L (5-34); Albumin 3.6 g/dL (3.4-4.8); Alkaline Phosphatase 41 U/L (40-110); Anion Gap 15 mmol/L (10-20); BUN (Urea Nitrogen) 22 mg/dL (9.8-20.1); Bilirubin, Total 0.7 mg/dL (0.2-1.2); Calc. Creatinine Clearance 85 mL/min (70-130); Calcium 8.7 mg/dL (7.8-10.44); Carbon Dioxide 23 mmol/L (23-31); Chloride 108 mmol/L (98-107); Globulin 2.6 g/dL (2.4-3.5); Glucose 124 mg/dL (80-115); Potassium 4.6 mmol/L (3.5-5.1); Protein, Total 6.2 g/dL (5.8-8.1); Sodium 141 mmol/L (136-145)
[2020-12-14 09:51] LABS: Band 1 % (5-11); Eosinophils 1 % (0-10); Lymphocytes 9 % (21-51); MDiff Complete? YES; Monocytes 7 % (0-10); Neutrophil 82 % (42-75); Platelet Morphology Comment Appears Adequate; Polychromasia SLIGHT = 2-3 cells (100X) (0-2/hpf); Schistocytes SLIGHT = 2-5 cells (100X) (0-1/hpf)
[2020-12-14] MEDS: Acetaminophen 500 MG TAB PO SCH ×2 (17:35→23:55)
[2020-12-14] MEDS: Budesonide 0.5 MG/2 ML NEB NEB SCH (18:45)
[2020-12-14] MEDS: Simvastatin 10 MG TAB PO SCH (20:39)
[2020-12-15 05:32] LABS: Anion Gap 11 mmol/L (10-20); BUN (Urea Nitrogen) 20 mg/dL (9.8-20.1); Calc. Creatinine Clearance 100 mL/min (70-130); Calcium 8.3 mg/dL (7.8-10.44); Carbon Dioxide 23 mmol/L (23-31); Chloride 110 mmol/L (98-107); Glucose 148 mg/dL (80-115); Potassium 4.4 mmol/L (3.5-5.1); Sodium 140 mmol/L (136-145)
[2020-12-15 05:48] LABS: #Lymphocytes 0.8 thou/uL (1.20-3.40); #Monocytes 0.4 thou/uL (0.11-0.59); #Neutrophils 12.6 thou/uL (1.40-6.50); %Basophils 0.1 % (0.0-1.0); %Lymphocytes 5.8 % (21.0-51.0); %Monocytes 2.8 % (0.0-10.0); %Neutrophils 91.2 % (42.0-75.0); Anisocytosis SLIGHT = 6-15 cells (100X) (0-5/hpf); Hemoglobin 10.5 g/dL (12.0-16.0); MDiff Complete? YES; Macrocytosis SLIGHT = 6-15 cells (100X) (0-5/hpf); Mean Corpuscular HGB CONC 32.2 g/dL (32.0-36.0); Mean Corpuscular Hemoglobin 33.3 pg (27.0-31.0); Mean Platelet Volume 10.6 fL (7.4-10.4); Platelet Count 112 thou/uL (130-400); Platelet Morphology Comment Appears Decreased; RBC Distribution Width 17.8 % (11.5-14.5); Red Blood Cell (RBC) Count 3.15 mill/uL (4.20-5.40); Schistocytes SLIGHT = 2-5 cells (100X) (0-1/hpf); White Blood Cell (WBC) Count 13.8 thou/uL (4.8-10.8)
[2020-12-15] MEDS: Levothyroxine Sodium 88 MCG TAB PO SCH (06:06)
[2020-12-15] MEDS: Budesonide 0.5 MG/2 ML NEB NEB SCH ×2 (07:07→18:06)
[2020-12-15] MEDS: Sodium Chloride 0.9% 1,000 ML IV SCH ×2 (07:29→16:45)
[2020-12-15] MEDS: Nebivolol HCl 2.5 MG TAB PO SCH (08:32)
[2020-12-15] MEDS: Hydrocortisone 10 mg Tablet PO SCH (08:32)
[2020-12-15] MEDS: Sulfameth/Trimethoprim DS 800-160mg TAB PO SCH ×2 (08:32→21:14)
[2020-12-15] MEDS: Acetaminophen 500 MG TAB PO SCH ×3 (08:34→17:27)
[2020-12-15 10:30] LABS: Troponin I 0.335 ng/mL (< 0.028)
[2020-12-15] MEDS: HYDROmorphone 10 mg/100 ml CADD IVPB PRN (14:07)
[2020-12-15 15:10] LABS: CKMB 3.6 ng/mL (0-6.6)
[2020-12-15 18:59] LABS: Troponin I 0.244 ng/mL (< 0.028)
[2020-12-15] MEDS: Simvastatin 10 MG TAB PO SCH (21:14)
[2020-12-16] MEDS: Acetaminophen 500 MG TAB PO SCH ×5 (00:25→23:35)
[2020-12-16] MEDS: Sodium Chloride 0.9% 1,000 ML IV SCH ×4 (00:26→23:36)
[2020-12-16] MEDS ORDERED: guaiFENesin ER 600 MG TAB PO SCH (00:30)
[2020-12-16 04:52] LABS: #Lymphocytes 1.2 thou/uL (1.20-3.40); #Monocytes 0.6 thou/uL (0.11-0.59); #Neutrophils 7.9 thou/uL (1.40-6.50); %Basophils 0.2 % (0.0-1.0); %Eosinophils 0.3 % (0.0-10.0); %Monocytes 6.6 % (0.0-10.0); %Neutrophils 80.9 % (42.0-75.0); Hemoglobin 10.3 g/dL (12.0-16.0); Mean Corpuscular HGB CONC 32.6 g/dL (32.0-36.0); Mean Corpuscular Hemoglobin 33.7 pg (27.0-31.0); Mean Platelet Volume 10.7 fL (7.4-10.4); Platelet Count 105 thou/uL (130-400); RBC Distribution Width 17.4 % (11.5-14.5); Red Blood Cell (RBC) Count 3.04 mill/uL (4.20-5.40); White Blood Cell (WBC) Count 9.7 thou/uL (4.8-10.8)
[2020-12-16 04:54] LABS: Anion Gap 10 mmol/L (10-20); BUN (Urea Nitrogen) 17 mg/dL (9.8-20.1); Calc. Creatinine Clearance 103 mL/min (70-130); Calcium 8.3 mg/dL (7.8-10.44); Carbon Dioxide 22 mmol/L (23-31); Chloride 112 mmol/L (98-107); Glucose 88 mg/dL (80-115); Potassium 4.1 mmol/L (3.5-5.1); Sodium 140 mmol/L (136-145)
[2020-12-16] MEDS: Levothyroxine Sodium 88 MCG TAB PO SCH (06:15)
[2020-12-16] MEDS: Budesonide 0.5 MG/2 ML NEB NEB SCH ×2 (08:23→19:16)
[2020-12-16] MEDS: guaiFENesin ER 600 MG TAB PO SCH ×2 (09:14→20:40)
[2020-12-16] MEDS: Hydrocortisone 10 mg Tablet PO SCH (09:14)
[2020-12-16] MEDS: Sulfameth/Trimethoprim DS 800-160mg TAB PO SCH ×2 (09:14→20:40)
[2020-12-16] MEDS ORDERED: Acetaminophen 500 MG TAB PO SCH (13:45)
[2020-12-16] MEDS: Simvastatin 10 MG TAB PO SCH (20:40)
[2020-12-17] MEDS: Acetaminophen 500 MG TAB PO SCH ×4 (05:40→23:35)
[2020-12-17] MEDS: Levothyroxine Sodium 88 MCG TAB PO SCH (05:41)
[2020-12-17 06:20] LABS: #Eosinphils 0.1 thou/uL (0.0-0.7); #Lymphocytes 1.5 thou/uL (1.20-3.40); #Monocytes 0.8 thou/uL (0.11-0.59); %Basophils 0.3 % (0.0-1.0); %Eosinophils 0.9 % (0.0-10.0); %Lymphocytes 15.6 % (21.0-51.0); %Monocytes 8.2 % (0.0-10.0); Hemoglobin 10.3 g/dL (12.0-16.0); Mean Corpuscular HGB CONC 32.3 g/dL (32.0-36.0); Mean Corpuscular Hemoglobin 33.6 pg (27.0-31.0); Mean Platelet Volume 10.6 fL (7.4-10.4); Platelet Count 105 thou/uL (130-400); RBC Distribution Width 17.4 % (11.5-14.5); Red Blood Cell (RBC) Count 3.07 mill/uL (4.20-5.40); White Blood Cell (WBC) Count 9.4 thou/uL (4.8-10.8)
[2020-12-17 06:26] LABS: Anion Gap 12 mmol/L (10-20); BUN (Urea Nitrogen) 12 mg/dL (9.8-20.1); Calc. Creatinine Clearance 107 mL/min (70-130); Calcium 8.4 mg/dL (7.8-10.44); Carbon Dioxide 21 mmol/L (23-31); Chloride 109 mmol/L (98-107); Glucose 82 mg/dL (80-115); Potassium 4.2 mmol/L (3.5-5.1); Sodium 138 mmol/L (136-145)
[2020-12-17] MEDS: Budesonide 0.5 MG/2 ML NEB NEB SCH ×2 (06:41→18:35)
[2020-12-17] MEDS ORDERED: Promethazine HCl 25 MG/ML VIAL IM PRN (07:07)
[2020-12-17] MEDS ORDERED: Ondansetron PF 4 MG/2 ML Vial IVP PRN (07:07)
[2020-12-17] MEDS ORDERED: diphenhydrAMINE 25 MG CAP PO PRN (07:07)
[2020-12-17] MEDS ORDERED: HYDROcodone/Acetaminophen 10/325 mg Tablet PO PRN ×2 (07:07)
[2020-12-17] MEDS ORDERED: Zolpidem Tartrate 5 MG TAB PO PRN (07:07)
[2020-12-17] MEDS ORDERED: Acetaminophen 325 MG TAB PO PRN ×2 (07:07→07:24)
[2020-12-17 07:15] VITALS: BMI 29.0
[2020-12-17] MEDS ORDERED: tiZANidine HCl 4 MG TAB PO PRN (07:23)
[2020-12-17] MEDS: Hydrocortisone 10 mg Tablet PO SCH ×4 (07:53→21:28)
[2020-12-17] MEDS: Aspirin 81 mg Enteric Coated Tablet PO SCH ×2 (07:53→20:47)
[2020-12-17] MEDS: Senokot S 8.6-50 MG TAB PO SCH ×2 (07:53→20:47)
[2020-12-17] MEDS: Ferrous Gluconate 324 MG TAB PO SCH ×2 (07:54→20:47)
[2020-12-17] MEDS: guaiFENesin ER 600 MG TAB PO SCH ×2 (07:54→20:47)
[2020-12-17] MEDS: Sulfameth/Trimethoprim DS 800-160mg TAB PO SCH ×2 (07:55→20:48)
[2020-12-17] MEDS: Multivitamin W/ Minerals 1 TAB PO SCH (07:55)
[2020-12-17] MEDS: Sodium Chloride 0.9% 1,000 ML IV SCH ×2 (07:58→17:30)
[2020-12-17] MEDS: Nebivolol HCl 2.5 MG TAB PO SCH (07:59)
[2020-12-17] MEDS ORDERED: Vancomycin 1 GM in Premix Bag 1 BAG IVPB SCH (08:00)
[2020-12-17] MEDS: HYDROmorphone 10 mg/100 ml CADD IVPB PRN (11:57)
[2020-12-17] MEDS: Mometasone 100 MCG/PUFF (1 INHALER) INH SCH (18:36)
[2020-12-17] MEDS: Apixaban 2.5 MG TAB PO SCH (20:47)
[2020-12-17] MEDS: Simvastatin 10 MG TAB PO SCH (20:48)
[2020-12-17] MEDS ORDERED: Pravastatin Sodium 20 MG TAB PO SCH (21:00)
[2020-12-17] MEDS ORDERED: Aspirin 81 mg Enteric Coated Tablet PO SCH (21:00)
[2020-12-18] MEDS: Mometasone 100 MCG/PUFF (1 INHALER) INH SCH ×3 (00:32→22:30)
[2020-12-18] MEDS: Budesonide 0.5 MG/2 ML NEB NEB SCH ×3 (00:33→22:29)
[2020-12-18] MEDS: Sodium Chloride 0.9% 1,000 ML IV SCH ×3 (04:04→23:50)
[2020-12-18] MEDS: Acetaminophen 500 MG TAB PO SCH ×4 (06:02→23:50)
[2020-12-18] MEDS: Levothyroxine Sodium 88 MCG TAB PO SCH (06:03)
[2020-12-18] MEDS: Senokot S 8.6-50 MG TAB PO SCH ×2 (07:53→20:55)
[2020-12-18] MEDS: Aspirin 81 mg Enteric Coated Tablet PO SCH ×2 (07:53→20:56)
[2020-12-18] MEDS: Ferrous Gluconate 324 MG TAB PO SCH ×2 (07:53→20:56)
[2020-12-18] MEDS: Apixaban 2.5 MG TAB PO SCH ×2 (07:53→20:57)
[2020-12-18] MEDS: Nebivolol HCl 2.5 MG TAB PO SCH (07:53)
[2020-12-18] MEDS: Multivitamin W/ Minerals 1 TAB PO SCH (07:54)
[2020-12-18] MEDS: Sulfameth/Trimethoprim DS 800-160mg TAB PO SCH ×2 (07:54→20:56)
[2020-12-18] MEDS: guaiFENesin ER 600 MG TAB PO SCH ×2 (07:54→20:56)
[2020-12-18] MEDS: Hydrocortisone 10 mg Tablet PO SCH (20:54)
[2020-12-18] MEDS: Simvastatin 10 MG TAB PO SCH (20:57)
[2020-12-19] MEDS: Mometasone 100 MCG/PUFF (1 INHALER) INH SCH ×3 (00:36→18:29)
[2020-12-19] MEDS: Budesonide 0.5 MG/2 ML NEB NEB SCH ×3 (00:36→18:29)
[2020-12-19] MEDS: Levothyroxine Sodium 88 MCG TAB PO SCH (06:14)
[2020-12-19] MEDS: Acetaminophen 500 MG TAB PO SCH ×2 (06:14→12:02)
[2020-12-19 06:55] LABS: Hemoglobin 9.6 g/dL (12.0-16.0); Mean Corpuscular HGB CONC 32.7 g/dL (32.0-36.0); Mean Corpuscular Hemoglobin 33.9 pg (27.0-31.0); Mean Platelet Volume 9.9 fL (7.4-10.4); Platelet Count 116 thou/uL (130-400); RBC Distribution Width 17.4 % (11.5-14.5); Red Blood Cell (RBC) Count 2.83 mill/uL (4.20-5.40); White Blood Cell (WBC) Count 6.5 thou/uL (4.8-10.8)
[2020-12-19 07:24] LABS: Band 1 % (5-11); Eosinophils 2 % (0-10); Lymphocytes 9 % (21-51); MDiff Complete? YES; Macrocytosis SLIGHT = 6-15 cells (100X) (0-5/hpf); Monocytes 9 % (0-10); Neutrophil 78 % (42-75); Platelet Morphology Comment Appears Decreased; Polychromasia SLIGHT = 2-3 cells (100X) (0-2/hpf); Reactive Lymphocytes 2 % (0-10)
[2020-12-19 07:31] LABS: Anion Gap 12 mmol/L (10-20); BUN (Urea Nitrogen) 10 mg/dL (9.8-20.1); Calc. Creatinine Clearance 122 mL/min (70-130); Calcium 8.2 mg/dL (7.8-10.44); Carbon Dioxide 21 mmol/L (23-31); Chloride 111 mmol/L (98-107); Glucose 83 mg/dL (80-115); Potassium 3.8 mmol/L (3.5-5.1); Sodium 140 mmol/L (136-145)
[2020-12-19] MEDS: Nebivolol HCl 2.5 MG TAB PO SCH (07:58)
[2020-12-19] MEDS: Hydrocortisone 10 mg Tablet PO SCH ×2 (07:59→20:37)
[2020-12-19] MEDS: Ferrous Gluconate 324 MG TAB PO SCH ×2 (07:59→20:37)
[2020-12-19] MEDS: guaiFENesin ER 600 MG TAB PO SCH ×2 (07:59→20:37)
[2020-12-19] MEDS: Aspirin 81 mg Enteric Coated Tablet PO SCH ×2 (07:59→20:37)
[2020-12-19] MEDS: Apixaban 2.5 MG TAB PO SCH ×2 (07:59→20:37)
[2020-12-19] MEDS: Sulfameth/Trimethoprim DS 800-160mg TAB PO SCH ×2 (07:59→20:38)
[2020-12-19] MEDS: Senokot S 8.6-50 MG TAB PO SCH ×2 (07:59→20:38)
[2020-12-19] MEDS: Multivitamin W/ Minerals 1 TAB PO SCH (08:00)
[2020-12-19] MEDS: Sodium Chloride 0.9% 1,000 ML IV SCH ×2 (08:05→20:37)
[2020-12-19] MEDS ORDERED: Acetaminophen 325 MG TAB PO PRN (13:40)
[2020-12-19] MEDS ORDERED: Morphine 2 MG/ML VIAL SLOW IVP PRN (13:41)
[2020-12-19] MEDS ORDERED: HYDROcodone/Acetaminophen 10/325 mg Tablet PO PRN (13:42)
[2020-12-19] MEDS ORDERED: traMADol HCl 50 MG TAB PO PRN (13:42)
[2020-12-19] MEDS: HYDROcodone/Acetaminophen 10/325 mg Tablet PO SCH ×2 (17:42→23:59)
[2020-12-19] MEDS: Simvastatin 10 MG TAB PO SCH (20:38)
[2020-12-19] MEDS: Morphine 4 MG/ML VIAL SLOW IVP PRN (21:01)
[2020-12-20] MEDS: Morphine 4 MG/ML VIAL SLOW IVP PRN (04:48)
[2020-12-20] MEDS: Sodium Chloride 0.9% 1,000 ML IV SCH ×2 (04:48→15:56)
[2020-12-20 04:58] LABS: Hemoglobin 9.3 g/dL (12.0-16.0); Mean Corpuscular HGB CONC 30.7 g/dL (32.0-36.0); Mean Corpuscular Hemoglobin 31.7 pg (27.0-31.0); Mean Platelet Volume 9.6 fL (7.4-10.4); Platelet Count 139 thou/uL (130-400); RBC Distribution Width 17.6 % (11.5-14.5); Red Blood Cell (RBC) Count 2.94 mill/uL (4.20-5.40)
[2020-12-20 05:33] LABS: Band 4 % (5-11); Eosinophils 2 % (0-10); Lymphocytes 17 % (21-51); MDiff Complete? YES; Monocytes 4 % (0-10); Neutrophil 73 % (42-75)
[2020-12-20] MEDS: Levothyroxine Sodium 88 MCG TAB PO SCH (06:17)
[2020-12-20] MEDS: HYDROcodone/Acetaminophen 10/325 mg Tablet PO SCH ×4 (06:17→23:58)
[2020-12-20] MEDS: Budesonide 0.5 MG/2 ML NEB NEB SCH ×2 (07:09→18:44)
[2020-12-20] MEDS: Mometasone 100 MCG/PUFF (1 INHALER) INH SCH ×2 (07:10→18:44)
[2020-12-20] MEDS: Senokot S 8.6-50 MG TAB PO SCH ×2 (08:29→20:06)
[2020-12-20] MEDS: Aspirin 81 mg Enteric Coated Tablet PO SCH ×2 (08:29→20:05)
[2020-12-20] MEDS: Sulfameth/Trimethoprim DS 800-160mg TAB PO SCH ×2 (08:29→20:06)
[2020-12-20] MEDS: Hydrocortisone 10 mg Tablet PO SCH ×2 (08:30→20:05)
[2020-12-20] MEDS: Multivitamin W/ Minerals 1 TAB PO SCH (08:30)
[2020-12-20] MEDS: guaiFENesin ER 600 MG TAB PO SCH ×2 (08:31→20:06)
[2020-12-20] MEDS: Apixaban 2.5 MG TAB PO SCH ×2 (08:31→20:06)
[2020-12-20] MEDS: Ferrous Gluconate 324 MG TAB PO SCH ×2 (08:31→20:05)
[2020-12-20] MEDS: Nebivolol HCl 2.5 MG TAB PO SCH (08:31)
[2020-12-20] MEDS: Simvastatin 10 MG TAB PO SCH (20:05)
[2020-12-21] MEDS: Sodium Chloride 0.9% 1,000 ML IV SCH ×3 (00:57→21:17)
[2020-12-21] MEDS: Levothyroxine Sodium 88 MCG TAB PO SCH (06:05)
[2020-12-21] MEDS: HYDROcodone/Acetaminophen 10/325 mg Tablet PO SCH ×3 (06:05→16:51)
[2020-12-21] MEDS: Budesonide 0.5 MG/2 ML NEB NEB SCH ×2 (07:14→18:50)
[2020-12-21] MEDS: Mometasone 100 MCG/PUFF (1 INHALER) INH SCH ×2 (07:18→18:51)
[2020-12-21] MEDS: Nebivolol HCl 2.5 MG TAB PO SCH (07:50)
[2020-12-21] MEDS: Multivitamin W/ Minerals 1 TAB PO SCH (07:50)
[2020-12-21] MEDS: Senokot S 8.6-50 MG TAB PO SCH ×2 (07:50→20:11)
[2020-12-21] MEDS: guaiFENesin ER 600 MG TAB PO SCH ×2 (07:51→20:11)
[2020-12-21] MEDS: Apixaban 2.5 MG TAB PO SCH ×2 (07:51→20:11)
[2020-12-21] MEDS: Ferrous Gluconate 324 MG TAB PO SCH ×2 (07:51→20:11)
[2020-12-21] MEDS: Sulfameth/Trimethoprim DS 800-160mg TAB PO SCH ×2 (07:51→20:11)
[2020-12-21] MEDS: Hydrocortisone 10 mg Tablet PO SCH ×2 (07:51→20:11)
[2020-12-21] MEDS: Aspirin 81 mg Enteric Coated Tablet PO SCH ×2 (07:51→20:11)
[2020-12-21] MEDS: Morphine 4 MG/ML VIAL SLOW IVP PRN (12:14)
[2020-12-21 20:10] VITALS: BP 102/70; TEMP 98.6
[2020-12-21] MEDS: Simvastatin 10 MG TAB PO SCH (20:10)
== END 2020-12-21 22:10 | disposition home or self-care (01) | DRG 553 ==
LOC: ERS 13:54 → T4-A 18:01 → OBSVTOIN 12-12 14:11 → SURG A 12-13 11:52 → CCU 12-13 12:29 → T4-A 12-16 10:27
PROVIDERS: ADMIT Specialist; ATTEND Specialist
PROC: B51D1ZZ Fluoroscopy of Bilateral Lower Extremity Veins using Low Osmolar Contrast (ICD-10-PCS; 2020-12-10)
PROC: 5A12012 Performance of Cardiac Output, Single, Manual (ICD-10-PCS; principal; 2020-12-13)
PROC: 02HV33Z Insertion of Infusion Device into Superior Vena Cava, Percutaneous Approach (ICD-10-PCS; 2020-12-13)
PROC: 3E043XZ Introduction of Vasopressor into Central Vein, Percutaneous Approach (ICD-10-PCS; 2020-12-13)
PROC: B51D1ZZ Fluoroscopy of Bilateral Lower Extremity Veins using Low Osmolar Contrast (ICD-10-PCS; 2020-12-15)
DX: M87.9 Osteonecrosis, unspecified (principal); I46.9 Cardiac arrest, cause unspecified; I21.A1 Myocardial infarction type 2; E27.1 Primary adrenocortical insufficiency; C34.90 Malignant neoplasm of unspecified part of unspecified bronchus or lung; C79.51 Secondary malignant neoplasm of bone; E78.5 Hyperlipidemia, unspecified; F41.1 Generalized anxiety disorder; J44.9 Chronic obstructive pulmonary disease, unspecified; K21.9 Gastro-esophageal reflux disease without esophagitis; E03.9 Hypothyroidism, unspecified; F32.9 Major depressive disorder, single episode, unspecified; I10 Essential (primary) hypertension; B96.20 Unspecified Escherichia coli [E. coli] as the cause of diseases classified elsewhere; I73.9 Peripheral vascular disease, unspecified; B96.4 Proteus (mirabilis) (morganii) as the cause of diseases classified elsewhere; T38.0X5A Adverse effect of glucocorticoids and synthetic analogues, initial encounter; R00.1 Bradycardia, unspecified; D69.6 Thrombocytopenia, unspecified; N30.91 Cystitis, unspecified with hematuria; Z90.49 Acquired absence of other specified parts of digestive tract; Z88.8 Allergy status to other drugs, medicaments and biological substances; Z88.1 Allergy status to other antibiotic agents; Z91.041 Radiographic dye allergy status
CPT/HCPCS: 36415; 71045; 71046; 78306; 78451; 80048; 80053; 81001; 82553; 84484; 85025; 85652; 87077; 87086; 87186; 87635; 93306; 93970; 94002; 94640; 96374; A9503; A9540; A9579; G0378; J0171; J0690; J0696; J1100; J1720; J1885; J1956; J2001; J2250; J2270; J2370; J2704; J2760; J2795; J2930; J3010; J3370; J3490; J7050; J7620; J7626; U0003; U0005

== ENCOUNTER 2021-02-14 11:50 | Outpatient (CLI) | payer BC, MEDICARE | END 2021-02-14 11:51 | disposition home or self-care (01) | LOC: BICRAD 11:50 | PROVIDERS: ATTEND Internal Medicine Critical Care Medicine | DX: S22.040S Wedge compression fracture of fourth thoracic vertebra, sequela (principal); S22.050S Wedge compression fracture of T5-T6 vertebra, sequela; R06.00 Dyspnea, unspecified; R91.8 Other nonspecific abnormal finding of lung field; Z98.890 Other specified postprocedural states | CPT/HCPCS: 71046; 72072 ==

== ENCOUNTER 2021-03-18 08:23 | Outpatient (CLI) | payer BC ==
[2021-03-18 09:25] LABS: Estimated GFR-MDRD - POC Greater than 90
[2021-03-18] MEDS ORDERED: Iopamidol 370 76% 100 ML VIAL ONE (13:43)
== END 2021-03-18 08:24 | disposition home or self-care (01) ==
LOC: CT 08:23
PROVIDERS: ATTEND Internal Medicine Hematology & Oncology
DX: C34.81 Malignant neoplasm of overlapping sites of right bronchus and lung (principal); C79.51 Secondary malignant neoplasm of bone; R91.8 Other nonspecific abnormal finding of lung field; J44.9 Chronic obstructive pulmonary disease, unspecified; M48.54XA Collapsed vertebra, not elsewhere classified, thoracic region, initial encounter for fracture; Z90.49 Acquired absence of other specified parts of digestive tract
CPT/HCPCS: 71260; 74177; 82565; Q9967

== ENCOUNTER 2021-04-12 10:02 | Outpatient (CLI) | payer BC | END 2021-04-12 10:03 | disposition home or self-care (01) | LOC: BICMAMMO 10:02 | PROVIDERS: ATTEND Internal Medicine Hematology & Oncology | DX: M80.80XD Other osteoporosis with current pathological fracture, unspecified site, subsequent encounter for fracture with routine healing (principal); M85.89 Other specified disorders of bone density and structure, multiple sites | CPT/HCPCS: 77080 ==

== ENCOUNTER 2021-06-18 08:01 | Outpatient (CLI) | payer BC | END 2021-06-18 08:02 | disposition home or self-care (01) | LOC: CT 08:01 | PROVIDERS: ATTEND Internal Medicine Hematology & Oncology | DX: C34.81 Malignant neoplasm of overlapping sites of right bronchus and lung (principal); C79.51 Secondary malignant neoplasm of bone; R91.1 Solitary pulmonary nodule; J44.9 Chronic obstructive pulmonary disease, unspecified | CPT/HCPCS: 71250 ==

== ENCOUNTER 2021-09-17 08:03 | Outpatient (CLI) | payer BC | END 2021-09-17 08:04 | disposition home or self-care (01) | LOC: BICCT 08:03 | PROVIDERS: ATTEND Internal Medicine Hematology & Oncology | DX: C34.81 Malignant neoplasm of overlapping sites of right bronchus and lung (principal); J44.9 Chronic obstructive pulmonary disease, unspecified; R91.1 Solitary pulmonary nodule | CPT/HCPCS: 71250 ==

== ENCOUNTER 2021-10-17 20:54 | Inpatient (IN) | payer BC, MEDICARE ==
[~2021-10-17 20:54] MED LIST changes: -ISOVUE-370 76%-LOCM 1 ML ONE; +Iopamidol-370 76% 500 ML 1 ML ONE
[2021-10-17] MEDS ORDERED: diphenhydrAMINE 50 MG/ML VIAL ONE (21:51)
[2021-10-17] MEDS ORDERED: methylPREDNISolone Sod Succ/PF 125 MG/2 ML VIAL ONE (21:51)
[2021-10-17] MEDS ORDERED: Dexamethasone 10 MG/ML VIAL ONE (21:51)
[2021-10-17 22:35] LABS: Anisocytosis SLIGHT = 6-15 cells (100X) (0-5/hpf); Band 17 % (5-11); Hemoglobin 12.8 g/dL (12.0-16.0); Lymphocytes 25 % (21-51); MDiff Complete? YES; Mean Corpuscular HGB CONC 30.8 g/dL (32.0-36.0); Mean Corpuscular Hemoglobin 32.3 pg (27.0-31.0); Mean Platelet Volume 7.1 fL (7.4-10.4); Monocytes 15 % (0-10); Neutrophil 43 % (42-75); Platelet Count 114 thou/uL (130-400); Platelet Morphology Comment Appears Decreased; RBC Distribution Width 19.6 % (11.5-14.5); Red Blood Cell (RBC) Count 3.97 mill/uL (4.20-5.40); White Blood Cell (WBC) Count 6.9 thou/uL (4.8-10.8)
[2021-10-18 00:40] LABS: SARS-CoV-2 NAA Rapid Test DETECTED (NotDetected)
[2021-10-18] MEDS ORDERED: Ondansetron ODT 4 MG TAB SL PRN (05:45)
[2021-10-18] MEDS ORDERED: Ondansetron PF 4 MG/2 ML Vial IVP PRN ×2 (05:45→08:36)
[2021-10-18] MEDS ORDERED: Sodium Chloride 0.9% 1,000 ML IV SCH (05:45)
[2021-10-18] MEDS ORDERED: Acetaminophen 325 MG TAB PO PRN (05:45)
[2021-10-18 07:27] LABS: #Lymphocytes 0.8 thou/uL (1.20-3.40); #Monocytes 0.1 thou/uL (0.11-0.59); #Neutrophils 3.5 thou/uL (1.40-6.50); %Basophils 0.6 % (0.0-1.0); %Eosinophils 0.2 % (0.0-10.0); %Monocytes 1.2 % (0.0-10.0); %Neutrophils 79.9 % (42.0-75.0); Hemoglobin 13.1 g/dL (12.0-16.0); Mean Corpuscular HGB CONC 31.5 g/dL (32.0-36.0); Mean Corpuscular Hemoglobin 33.3 pg (27.0-31.0); Mean Platelet Volume 7.9 fL (7.4-10.4); Platelet Count 92 thou/uL (130-400); RBC Distribution Width 18.9 % (11.5-14.5); Red Blood Cell (RBC) Count 3.92 mill/uL (4.20-5.40); White Blood Cell (WBC) Count 4.4 thou/uL (4.8-10.8)
[2021-10-18 07:40] LABS: Anion Gap 13 mmol/L (10-20); BUN (Urea Nitrogen) 18 mg/dL (9.8-20.1); CRP (Inflammatory) 2.66 mg/dL (= or < 0.5); Calc. Creatinine Clearance 0 mL/min (70-130); Carbon Dioxide 20 mmol/L (23-31); Chloride 111 mmol/L (98-107); Glucose 121 mg/dL (80-115); Potassium 4.4 mmol/L (3.5-5.1); Sodium 140 mmol/L (136-145)
[2021-10-18] MEDS ORDERED: Benzonatate 100 MG CAP PO PRN (08:28)
[2021-10-18] MEDS ORDERED: Albuterol 200 PUFF (6.7GM INHALER) INH PRN (08:29)
[2021-10-18] MEDS ORDERED: Ergocalciferol 1.25 MG(50,000 UNITS) CAP PO SCH (09:00)
[2021-10-18 09:05] VITALS: BMI 28.3
[2021-10-18] MEDS: Hydrocortisone 10 mg Tablet PO SCH ×2 (10:02→19:56)
[2021-10-18] MEDS: tiZANidine HCl 4 MG TAB PO SCH ×2 (10:02→11:47)
[2021-10-18] MEDS: Aspirin 325 MG TAB PO SCH (10:02)
[2021-10-18] MEDS: Dexamethasone 4 MG TAB PO SCH (10:02)
[2021-10-18] MEDS: Nebivolol HCl 2.5 MG TAB PO SCH (10:04)
[2021-10-18] MEDS: Zinc Sulfate 220 MG CAP PO SCH ×2 (10:04→19:56)
[2021-10-18] MEDS: Azithromycin 500 MG in Sodium Chloride 0.9% 250 ML 250 ML IVPB SCH (10:04)
[2021-10-18 10:12] LABS: ALT (SGPT) 28 U/L (8-55); AST (SGOT) 36 U/L (5-34); Albumin 3.4 g/dL (3.4-4.8); Alkaline Phosphatase 50 U/L (40-110); Bilirubin, Direct 0.2 mg/dL (0.1-0.3); Bilirubin, Total 0.5 mg/dL (0.2-1.2); Protein, Total 6.6 g/dL (5.8-8.1)
[2021-10-18] MEDS ORDERED: REMDESIVIR 200 MG in Sodium Chloride 0.9% 250 ML 210 ML IV SCH (12:00)
[2021-10-18] MEDS: Enoxaparin Sodium 80 MG/0.8 ML SYRINGE SC SCH ×2 (13:18→13:43)
[2021-10-18] MEDS ORDERED: Enoxaparin Sodium 40 MG/0.4 ML SYRINGE SC SCH (14:15)
[2021-10-18] MEDS ORDERED: tiZANidine HCl 4 MG TAB PO PRN (15:19)
[2021-10-18] MEDS: Mometasone 200 MCG/PUFF (1 INHALER) INH SCH (19:00)
[2021-10-18] MEDS ORDERED: Enoxaparin Sodium 80 MG/0.8 ML SYRINGE SC SCH (21:00)
[2021-10-19] MEDS: Levothyroxine Sodium 88 MCG TAB PO SCH (05:46)
[2021-10-19 07:53] LABS: Anion Gap 11 mmol/L (10-20); BUN (Urea Nitrogen) 16 mg/dL (9.8-20.1); CRP (Inflammatory) 1.65 mg/dL (= or < 0.5); Calc. Creatinine Clearance 96 mL/min (70-130); Calcium 8.2 mg/dL (7.8-10.44); Carbon Dioxide 23 mmol/L (23-31); Chloride 112 mmol/L (98-107); Glucose 121 mg/dL (80-115); Potassium 4.4 mmol/L (3.5-5.1); Sodium 142 mmol/L (136-145)
[2021-10-19 08:20] LABS: Band 36 % (5-11); Helmet Cells SLIGHT = 2-5 cells (100X) (0-1/hpf); Hemoglobin 12.2 g/dL (12.0-16.0); Lymphocytes 8 % (21-51); MDiff Complete? YES; Macrocytosis SLIGHT = 6-15 cells (100X) (0-5/hpf); Mean Corpuscular HGB CONC 32.3 g/dL (32.0-36.0); Mean Corpuscular Hemoglobin 33.6 pg (27.0-31.0); Mean Platelet Volume 10.9 fL (7.4-10.4); Monocytes 10 % (0-10); Neutrophil 38 % (42-75); Platelet Count 111 thou/uL (130-400); Platelet Morphology Comment Appears Decreased; Polychromasia SLIGHT = 2-3 cells (100X) (0-2/hpf); RBC Distribution Width 19.1 % (11.5-14.5); Reactive Lymphocytes 8 % (0-10); Red Blood Cell (RBC) Count 3.65 mill/uL (4.20-5.40); Schistocytes SLIGHT = 2-5 cells (100X) (0-1/hpf); Target Cells SLIGHT = 2-5 cells (100X) (0-1/hpf); Tear Drops SLIGHT = 2-5 cells (100X) (0-1/hpf); White Blood Cell (WBC) Count 6.7 thou/uL (4.8-10.8)
[2021-10-19] MEDS: Azithromycin 500 MG in Sodium Chloride 0.9% 250 ML 250 ML IVPB SCH (09:40)
[2021-10-19] MEDS: Aspirin 325 MG TAB PO SCH (09:40)
[2021-10-19] MEDS: Zinc Sulfate 220 MG CAP PO SCH ×2 (09:40→20:21)
[2021-10-19] MEDS: Dexamethasone 4 MG TAB PO SCH (09:40)
[2021-10-19] MEDS: Nebivolol HCl 2.5 MG TAB PO SCH (09:41)
[2021-10-19] MEDS: Enoxaparin Sodium 40 MG/0.4 ML SYRINGE SC SCH (09:41)
[2021-10-19] MEDS: Hydrocortisone 10 mg Tablet PO SCH ×2 (09:44→20:21)
[2021-10-19] MEDS: REMDESIVIR 100 MG in Sodium Chloride 0.9% 250 ML 230 ML IV SCH (11:19)
[2021-10-19] MEDS: Mometasone 200 MCG/PUFF (1 INHALER) INH SCH (18:47)
[2021-10-19] MEDS: Temazepam 15 MG CAP PO SCH (20:21)
[2021-10-19] MEDS: Mometasone 100 MCG/PUFF (1 INHALER) INH SCH (20:22)
[2021-10-20] MEDS: Levothyroxine Sodium 88 MCG TAB PO SCH (05:33)
[2021-10-20] MEDS: Dexamethasone 4 MG TAB PO SCH (08:44)
[2021-10-20] MEDS: Zinc Sulfate 220 MG CAP PO SCH ×2 (08:44→20:18)
[2021-10-20] MEDS: Aspirin 325 MG TAB PO SCH (08:44)
[2021-10-20] MEDS: Nebivolol HCl 2.5 MG TAB PO SCH (08:45)
[2021-10-20] MEDS: Enoxaparin Sodium 40 MG/0.4 ML SYRINGE SC SCH (08:46)
[2021-10-20] MEDS: Mometasone 100 MCG/PUFF (1 INHALER) INH SCH ×2 (08:46→20:18)
[2021-10-20] MEDS: Hydrocortisone 10 mg Tablet PO SCH ×2 (08:49→20:18)
[2021-10-20] MEDS: Azithromycin 500 MG in Sodium Chloride 0.9% 250 ML 250 ML IVPB SCH (10:02)
[2021-10-20] MEDS: REMDESIVIR 100 MG in Sodium Chloride 0.9% 250 ML 230 ML IV SCH (10:02)
[2021-10-20 10:42] LABS: Anion Gap 11 mmol/L (10-20); BUN (Urea Nitrogen) 18 mg/dL (9.8-20.1); CRP (Inflammatory) 0.63 mg/dL (= or < 0.5); Calc. Creatinine Clearance 95 mL/min (70-130); Calcium 9.2 mg/dL (7.8-10.44); Carbon Dioxide 27 mmol/L (23-31); Chloride 109 mmol/L (98-107); Glucose 109 mg/dL (80-115); Potassium 4.4 mmol/L (3.5-5.1); Sodium 143 mmol/L (136-145)
[2021-10-20 11:58] LABS: Band 15 % (5-11); Hemoglobin 12.5 g/dL (12.0-16.0); Lymphocytes 23 % (21-51); MDiff Complete? YES; Macrocytosis SLIGHT = 6-15 cells (100X) (0-5/hpf); Mean Corpuscular HGB CONC 31.3 g/dL (32.0-36.0); Mean Corpuscular Hemoglobin 32.8 pg (27.0-31.0); Mean Platelet Volume 10.5 fL (7.4-10.4); Monocytes 5 % (0-10); Neutrophil 57 % (42-75); Platelet Count 128 thou/uL (130-400); Platelet Morphology Comment Appears Decreased; RBC Distribution Width 19.2 % (11.5-14.5); Red Blood Cell (RBC) Count 3.81 mill/uL (4.20-5.40); White Blood Cell (WBC) Count 5.9 thou/uL (4.8-10.8)
[2021-10-20] MEDS: Temazepam 15 MG CAP PO SCH (20:18)
[2021-10-21] MEDS: Levothyroxine Sodium 88 MCG TAB PO SCH (05:24)
[2021-10-21 08:27] LABS: #Monocytes 0.4 thou/uL (0.11-0.59); #Neutrophils 3.9 thou/uL (1.40-6.50); %Eosinophils 0.1 % (0.0-10.0); %Lymphocytes 19.4 % (21.0-51.0); %Monocytes 8.2 % (0.0-10.0); %Neutrophils 72.3 % (42.0-75.0); Hemoglobin 12.7 g/dL (12.0-16.0); Mean Corpuscular HGB CONC 31.4 g/dL (32.0-36.0); Mean Corpuscular Hemoglobin 32.6 pg (27.0-31.0); Mean Platelet Volume 9.3 fL (7.4-10.4); Platelet Count 121 thou/uL (130-400); RBC Distribution Width 19.2 % (11.5-14.5); White Blood Cell (WBC) Count 5.4 thou/uL (4.8-10.8)
[2021-10-21 08:28] LABS: Anion Gap 11 mmol/L (10-20); BUN (Urea Nitrogen) 16 mg/dL (9.8-20.1); CRP (Inflammatory) Less than 0.50 mg/dL (= or < 0.5); Calc. Creatinine Clearance 102 mL/min (70-130); Calcium 8.9 mg/dL (7.8-10.44); Carbon Dioxide 26 mmol/L (23-31); Chloride 108 mmol/L (98-107); Glucose 110 mg/dL (80-115); Sodium 141 mmol/L (136-145)
[2021-10-21] MEDS: Enoxaparin Sodium 40 MG/0.4 ML SYRINGE SC SCH (08:38)
[2021-10-21] MEDS: Dexamethasone 4 MG TAB PO SCH (08:38)
[2021-10-21] MEDS: Aspirin 325 MG TAB PO SCH (08:38)
[2021-10-21] MEDS: Losartan 25 MG TAB PO SCH (08:40)
[2021-10-21] MEDS: Zinc Sulfate 220 MG CAP PO SCH ×2 (10:23→20:26)
[2021-10-21] MEDS: Hydrocortisone 10 mg Tablet PO SCH ×2 (10:23→20:26)
[2021-10-21] MEDS: Nebivolol HCl 5 MG TAB PO SCH (10:24)
[2021-10-21] MEDS: REMDESIVIR 100 MG in Sodium Chloride 0.9% 250 ML 230 ML IV SCH (10:29)
[2021-10-21] MEDS: Mometasone 100 MCG/PUFF (1 INHALER) INH SCH ×2 (10:29→20:30)
[2021-10-21] MEDS: Azithromycin 500 MG in Sodium Chloride 0.9% 250 ML 250 ML IVPB SCH (10:59)
[2021-10-21] MEDS: Temazepam 15 MG CAP PO SCH (20:26)
[2021-10-21] MEDS ORDERED: Atorvastatin Calcium 10 MG TAB PO SCH (21:00)
[2021-10-22] MEDS: Levothyroxine Sodium 88 MCG TAB PO SCH (05:19)
[2021-10-22] MEDS: Enoxaparin Sodium 40 MG/0.4 ML SYRINGE SC SCH (08:54)
[2021-10-22] MEDS: Losartan 25 MG TAB PO SCH (08:55)
[2021-10-22] MEDS: Nebivolol HCl 5 MG TAB PO SCH (08:56)
[2021-10-22] MEDS: Zinc Sulfate 220 MG CAP PO SCH (08:56)
[2021-10-22] MEDS: Dexamethasone 4 MG TAB PO SCH (08:56)
[2021-10-22] MEDS: Hydrocortisone 10 mg Tablet PO SCH (08:56)
[2021-10-22] MEDS: Aspirin 325 MG TAB PO SCH (08:56)
[2021-10-22] MEDS: REMDESIVIR 100 MG in Sodium Chloride 0.9% 250 ML 230 ML IV SCH (09:22)
[2021-10-22] MEDS: Azithromycin 500 MG in Sodium Chloride 0.9% 250 ML 250 ML IVPB SCH (09:59)
[2021-10-22 10:00] VITALS: BP 134/78; TEMP 97.5
[2021-10-22] MEDS: Mometasone 100 MCG/PUFF (1 INHALER) INH SCH (13:02)
== END 2021-10-22 16:23 | disposition home or self-care (01) | DRG 177 ==
LOC: ERS 20:54 → T4-B 23:30 → OBSVTOIN 10-18 09:19
PROVIDERS: ADMIT Specialist; ATTEND Specialist
PROC: XW033E5 Introduction of Remdesivir Anti-infective into Peripheral Vein, Percutaneous Approach, New Technology Group 5 (ICD-10-PCS; principal; 2021-10-18)
PROC: 8E0ZXY6 Isolation (ICD-10-PCS; 2021-10-18)
PROC: 3E03329 Introduction of Other Anti-infective into Peripheral Vein, Percutaneous Approach (ICD-10-PCS; 2021-10-18)
DX: U07.1 COVID-19 (principal); J12.82 Pneumonia due to coronavirus disease 2019; J44.1 Chronic obstructive pulmonary disease with (acute) exacerbation; J44.0 Chronic obstructive pulmonary disease with (acute) lower respiratory infection; J96.10 Chronic respiratory failure, unspecified whether with hypoxia or hypercapnia; E03.9 Hypothyroidism, unspecified; Z90.49 Acquired absence of other specified parts of digestive tract; Z87.891 Personal history of nicotine dependence; Z85.118 Personal history of other malignant neoplasm of bronchus and lung; Z99.81 Dependence on supplemental oxygen; Z88.8 Allergy status to other drugs, medicaments and biological substances; Z88.1 Allergy status to other antibiotic agents; Z91.041 Radiographic dye allergy status; Z79.899 Other long term (current) drug therapy; Z79.51 Long term (current) use of inhaled steroids
CPT/HCPCS: 36415; 71045; 71275; 80048; 80076; 83605; 83880; 84484; 85025; 85379; 85652; 86140; 93005; 94760; 96374; 96375; G0378; J0248; J0456; J1100; J1200; J1650; J2405; J2930; J7050; J8540; Q9967; U0002

== ENCOUNTER 2021-10-31 11:41 | Inpatient (IN) | payer BC, MEDICARE ==
[2021-10-31] MEDS ORDERED: Cefepime 2 GM VIAL ONE (12:36)
[2021-10-31] MEDS ORDERED: diphenhydrAMINE 50 MG/ML VIAL ONE (12:37)
[2021-10-31] MEDS ORDERED: methylPREDNISolone Sod Succ 40 MG VIAL ONE (12:37)
[2021-10-31] MEDS ORDERED: Famotidine/PF 20 mg/2ml Vial ONE (12:37)
[2021-10-31 12:58] LABS: ALT (SGPT) 34 U/L (8-55); AST (SGOT) 44 U/L (5-34); Albumin 3.4 g/dL (3.4-4.8); Alkaline Phosphatase 58 U/L (40-110); Anion Gap 20 mmol/L (10-20); BUN (Urea Nitrogen) 19 mg/dL (9.8-20.1); Calc. Creatinine Clearance 0 mL/min (70-130); Calcium 8.3 mg/dL (7.8-10.44); Carbon Dioxide 19 mmol/L (23-31); Chloride 100 mmol/L (98-107); Globulin 3.7 g/dL (2.4-3.5); Glucose 68 mg/dL (80-115); Potassium 4.7 mmol/L (3.5-5.1); Protein, Total 7.1 g/dL (5.8-8.1); Sodium 134 mmol/L (136-145)
[2021-10-31 13:05] LABS: #Lymphocytes 1.2 thou/uL (1.20-3.40); #Monocytes 0.4 thou/uL (0.11-0.59); #Neutrophils 6.9 thou/uL (1.40-6.50); %Basophils 0.1 % (0.0-1.0); %Eosinophils 0.3 % (0.0-10.0); %Lymphocytes 13.8 % (21.0-51.0); %Monocytes 4.3 % (0.0-10.0); %Neutrophils 81.5 % (42.0-75.0); Hemoglobin 14.1 g/dL (12.0-16.0); Mean Corpuscular HGB CONC 30.3 g/dL (32.0-36.0); Mean Corpuscular Hemoglobin 32.3 pg (27.0-31.0); Mean Platelet Volume 9.9 fL (7.4-10.4); Platelet Count 129 thou/uL (130-400); Red Blood Cell (RBC) Count 4.35 mill/uL (4.20-5.40); White Blood Cell (WBC) Count 8.5 thou/uL (4.8-10.8)
[2021-10-31 13:19] LABS: Anisocytosis SLIGHT = 6-15 cells (100X) (0-5/hpf); MDiff Complete? YES; Macrocytosis SLIGHT = 6-15 cells (100X) (0-5/hpf); Ovalocytes SLIGHT = 2-5 cells (100X) (0-1/hpf); Platelet Morphology Comment Appears Decreased; Polychromasia SLIGHT = 2-3 cells (100X) (0-2/hpf); Target Cells SLIGHT = 2-5 cells (100X) (0-1/hpf)
[2021-10-31 13:24] LABS: SARS-CoV-2 NAA Rapid Test DETECTED (NotDetected)
[2021-10-31] MEDS ORDERED: Vancomycin 1 GM/200 ML BAG ONE (13:43)
[2021-10-31] MEDS ORDERED: Dexamethasone 10 MG/ML VIAL ONE (15:09)
[2021-10-31] MEDS ORDERED: Zinc Sulfate 220 MG CAP ONE (15:10)
[2021-10-31 15:40] LABS: Lactic Acid 1.9 mmol/L (0.5-2.2)
[2021-10-31 21:39] VITALS: BMI 27.0
[2021-11-01] MEDS ORDERED: tiZANidine HCl 4 MG TAB PO PRN (03:20)
[2021-11-01] MEDS ORDERED: Albuterol 200 PUFF (6.7GM INHALER) INH PRN (03:21)
[2021-11-01] MEDS ORDERED: Acetaminophen/Codeine 30-300mg Tablet PO PRN (03:23)
[2021-11-01] MEDS: Levothyroxine Sodium 88 MCG TAB PO SCH (04:58)
[2021-11-01 05:50] LABS: #Basophils 0.1 thou/uL (0.0-0.2); #Lymphocytes 0.5 thou/uL (1.20-3.40); #Monocytes 0.1 thou/uL (0.11-0.59); #Neutrophils 5.6 thou/uL (1.40-6.50); %Basophils 1.7 % (0.0-1.0); %Eosinophils 0.1 % (0.0-10.0); %Lymphocytes 7.3 % (21.0-51.0); %Monocytes 1.5 % (0.0-10.0); %Neutrophils 89.5 % (42.0-75.0); Hemoglobin 12.2 g/dL (12.0-16.0); Mean Corpuscular HGB CONC 32.4 g/dL (32.0-36.0); Mean Corpuscular Hemoglobin 33.5 pg (27.0-31.0); Mean Platelet Volume 9.2 fL (7.4-10.4); Platelet Count 123 thou/uL (130-400); RBC Distribution Width 18.9 % (11.5-14.5); Red Blood Cell (RBC) Count 3.64 mill/uL (4.20-5.40); White Blood Cell (WBC) Count 6.3 thou/uL (4.8-10.8)
[2021-11-01 06:05] LABS: Anion Gap 13 mmol/L (10-20); BUN (Urea Nitrogen) 12 mg/dL (9.8-20.1); CRP (Inflammatory) 16.49 mg/dL (= or < 0.5); Calc. Creatinine Clearance 81 mL/min (70-130); Calcium 8.1 mg/dL (7.8-10.44); Carbon Dioxide 22 mmol/L (23-31); Chloride 107 mmol/L (98-107); Glucose 171 mg/dL (80-115); Potassium 3.7 mmol/L (3.5-5.1); Sodium 138 mmol/L (136-145)
[2021-11-01] MEDS: Albuterol 200 PUFF (6.7GM INHALER) INH SCH ×3 (06:26→18:35)
[2021-11-01] MEDS: Mometasone 100 MCG/PUFF (1 INHALER) INH SCH ×2 (06:40→18:34)
[2021-11-01] MEDS: Dexamethasone 4 MG TAB PO SCH (08:51)
[2021-11-01] MEDS: Zinc Sulfate 220 MG CAP PO SCH (08:52)
[2021-11-01] MEDS: Hydrocortisone 10 mg Tablet PO SCH ×2 (08:52→20:32)
[2021-11-01] MEDS: Aspirin 325 mg Enteric Coated Tablet PO SCH (08:52)
[2021-11-01] MEDS: Azithromycin 500 MG in Sodium Chloride 0.9% 250 ML 250 ML IVPB SCH (08:53)
[2021-11-01] MEDS: Apixaban 2.5 MG TAB PO SCH ×2 (08:53→20:32)
[2021-11-01] MEDS ORDERED: ALPRAZolam 0.5 MG TAB PO PRN (09:31)
[2021-11-01] MEDS ORDERED: Ondansetron PF 4 MG/2 ML Vial IVP PRN (09:32)
[2021-11-01] MEDS ORDERED: Acetaminophen 325 MG TAB PO PRN (09:32)
[2021-11-01] MEDS: Nebivolol HCl 2.5 MG TAB PO SCH (11:01)
[2021-11-01] MEDS: Hydroxychloroquine Sulfate 200 MG TAB PO SCH ×2 (11:01→20:32)
[2021-11-01] MEDS: Simvastatin 10 MG TAB PO SCH (20:32)
[2021-11-02] MEDS: Albuterol 200 PUFF (6.7GM INHALER) INH SCH ×4 (02:07→18:41)
[2021-11-02] MEDS: Levothyroxine Sodium 88 MCG TAB PO SCH (05:44)
[2021-11-02] MEDS: Mometasone 100 MCG/PUFF (1 INHALER) INH SCH ×2 (05:44→18:41)
[2021-11-02 05:55] LABS: Band 13 % (5-11); Lymphocytes 10 % (21-51); MDiff Complete? YES; Mean Corpuscular HGB CONC 32.4 g/dL (32.0-36.0); Mean Corpuscular Hemoglobin 33.3 pg (27.0-31.0); Mean Platelet Volume 11.1 fL (7.4-10.4); Monocytes 2 % (0-10); Neutrophil 75 % (42-75); Platelet Count 133 thou/uL (130-400); RBC Distribution Width 18.7 % (11.5-14.5); Red Blood Cell (RBC) Count 2.99 mill/uL (4.20-5.40); White Blood Cell (WBC) Count 10.8 thou/uL (4.8-10.8)
[2021-11-02] MEDS: Hydrocortisone 10 mg Tablet PO SCH ×2 (09:19→21:03)
[2021-11-02] MEDS: Azithromycin 500 MG in Sodium Chloride 0.9% 250 ML 250 ML IVPB SCH (09:19)
[2021-11-02] MEDS: Aspirin 325 mg Enteric Coated Tablet PO SCH (09:19)
[2021-11-02] MEDS: Nebivolol HCl 2.5 MG TAB PO SCH (09:20)
[2021-11-02] MEDS: Apixaban 2.5 MG TAB PO SCH ×2 (09:20→21:03)
[2021-11-02] MEDS: Zinc Sulfate 220 MG CAP PO SCH (09:20)
[2021-11-02] MEDS: Dexamethasone 4 MG TAB PO SCH (09:21)
[2021-11-02] MEDS: Hydroxychloroquine Sulfate 200 MG TAB PO SCH ×2 (09:21→21:03)
[2021-11-02] MEDS: Simvastatin 10 MG TAB PO SCH (21:03)
[2021-11-03] MEDS: Albuterol 200 PUFF (6.7GM INHALER) INH SCH ×4 (02:41→18:41)
[2021-11-03] MEDS: Mometasone 100 MCG/PUFF (1 INHALER) INH SCH ×2 (05:38→18:42)
[2021-11-03] MEDS: Levothyroxine Sodium 88 MCG TAB PO SCH (05:38)
[2021-11-03 06:14] LABS: Hemoglobin 9.7 g/dL (12.0-16.0); Mean Corpuscular HGB CONC 32.2 g/dL (32.0-36.0); Mean Corpuscular Hemoglobin 33.3 pg (27.0-31.0); Mean Platelet Volume 10.9 fL (7.4-10.4); Platelet Count 154 thou/uL (130-400); RBC Distribution Width 19.1 % (11.5-14.5); Red Blood Cell (RBC) Count 2.92 mill/uL (4.20-5.40); White Blood Cell (WBC) Count 9.2 thou/uL (4.8-10.8)
[2021-11-03 06:20] LABS: Anion Gap 11 mmol/L (10-20); BUN (Urea Nitrogen) 14 mg/dL (9.8-20.1); CRP (Inflammatory) 2.89 mg/dL (= or < 0.5); Calc. Creatinine Clearance 105 mL/min (70-130); Calcium 7.8 mg/dL (7.8-10.44); Carbon Dioxide 25 mmol/L (23-31); Chloride 111 mmol/L (98-107); Glucose 105 mg/dL (80-115); Sodium 143 mmol/L (136-145)
[2021-11-03 06:37] LABS: Band 4 % (5-11); Lymphocytes 7 % (21-51); MDiff Complete? YES; Monocytes 5 % (0-10); Neutrophil 82 % (42-75); Reactive Lymphocytes 2 % (0-10)
[2021-11-03] MEDS: Hydrocortisone 10 mg Tablet PO SCH ×2 (08:37→21:21)
[2021-11-03] MEDS: Nebivolol HCl 2.5 MG TAB PO SCH (08:38)
[2021-11-03] MEDS: Hydroxychloroquine Sulfate 200 MG TAB PO SCH ×2 (08:38→21:21)
[2021-11-03] MEDS: Aspirin 325 mg Enteric Coated Tablet PO SCH (08:38)
[2021-11-03] MEDS: Zinc Sulfate 220 MG CAP PO SCH (08:38)
[2021-11-03] MEDS: Apixaban 2.5 MG TAB PO SCH ×2 (08:38→21:21)
[2021-11-03] MEDS: Dexamethasone 4 MG TAB PO SCH (08:38)
[2021-11-03] MEDS: Azithromycin 500 MG in Sodium Chloride 0.9% 250 ML 250 ML IVPB SCH (12:03)
[2021-11-03] MEDS ORDERED: Enoxaparin Sodium 40 MG/0.4 ML SYRINGE SC SCH (21:00)
[2021-11-03] MEDS: Simvastatin 10 MG TAB PO SCH (21:21)
[2021-11-04] MEDS: Albuterol 200 PUFF (6.7GM INHALER) INH SCH ×4 (02:06→16:34)
[2021-11-04] MEDS: Levothyroxine Sodium 88 MCG TAB PO SCH (06:59)
[2021-11-04] MEDS: Mometasone 100 MCG/PUFF (1 INHALER) INH SCH ×2 (06:59→16:34)
[2021-11-04 07:19] LABS: Hemoglobin 9.9 g/dL (12.0-16.0); Mean Corpuscular HGB CONC 31.9 g/dL (32.0-36.0); Mean Corpuscular Hemoglobin 32.6 pg (27.0-31.0); Platelet Count 175 thou/uL (130-400); RBC Distribution Width 19.2 % (11.5-14.5); Red Blood Cell (RBC) Count 3.04 mill/uL (4.20-5.40)
[2021-11-04] MEDS: Nebivolol HCl 2.5 MG TAB PO SCH (08:50)
[2021-11-04] MEDS: Dexamethasone 4 MG TAB PO SCH (08:50)
[2021-11-04] MEDS: Hydrocortisone 10 mg Tablet PO SCH ×2 (08:50→20:05)
[2021-11-04] MEDS: Apixaban 5 MG TAB PO SCH ×2 (08:51→20:05)
[2021-11-04] MEDS: Hydroxychloroquine Sulfate 200 MG TAB PO SCH ×2 (08:51→20:05)
[2021-11-04] MEDS: Aspirin 325 mg Enteric Coated Tablet PO SCH (08:51)
[2021-11-04] MEDS: Zinc Sulfate 220 MG CAP PO SCH (08:51)
[2021-11-04] MEDS: Azithromycin 500 MG in Sodium Chloride 0.9% 250 ML 250 ML IVPB SCH (10:06)
[2021-11-04] MEDS: Ergocalciferol 1.25 MG(50,000 UNITS) CAP PO SCH (10:06)
[2021-11-04 11:13] LABS: Band 9 % (5-11); Lymphocytes 13 % (21-51); MDiff Complete? YES; Metamyelocyte 2 % (0-0); Monocytes 5 % (0-10); Myelocyte 2 % (0-0); Neutrophil 69 % (42-75); Platelet Morphology Comment Appears Adequate; Polychromasia SLIGHT = 2-3 cells (100X) (0-2/hpf)
[2021-11-04] MEDS: Simvastatin 10 MG TAB PO SCH (20:05)
[2021-11-05] MEDS: Albuterol 200 PUFF (6.7GM INHALER) INH SCH ×4 (02:05→17:01)
[2021-11-05 04:55] LABS: Band 6 % (5-11); Hemoglobin 11.1 g/dL (12.0-16.0); Hypersemented Neutrophil SLIGHT; Lymphocytes 3 % (21-51); MDiff Complete? YES; Mean Corpuscular HGB CONC 31.5 g/dL (32.0-36.0); Mean Corpuscular Hemoglobin 32.2 pg (27.0-31.0); Mean Platelet Volume 10.6 fL (7.4-10.4); Monocytes 3 % (0-10); Neutrophil 88 % (42-75); Platelet Count 219 thou/uL (130-400); RBC Distribution Width 19.4 % (11.5-14.5); Red Blood Cell (RBC) Count 3.44 mill/uL (4.20-5.40); White Blood Cell (WBC) Count 10.6 thou/uL (4.8-10.8)
[2021-11-05] MEDS: Levothyroxine Sodium 88 MCG TAB PO SCH (06:12)
[2021-11-05] MEDS: Mometasone 100 MCG/PUFF (1 INHALER) INH SCH ×2 (06:12→17:02)
[2021-11-05] MEDS: Azithromycin 500 MG in Sodium Chloride 0.9% 250 ML 250 ML IVPB SCH (09:01)
[2021-11-05] MEDS: Hydroxychloroquine Sulfate 200 MG TAB PO SCH ×2 (09:03→20:11)
[2021-11-05] MEDS: Dexamethasone 4 MG TAB PO SCH (09:03)
[2021-11-05] MEDS: Nebivolol HCl 5 MG TAB PO SCH (09:03)
[2021-11-05] MEDS: Zinc Sulfate 220 MG CAP PO SCH (09:03)
[2021-11-05] MEDS: Aspirin 325 mg Enteric Coated Tablet PO SCH (09:04)
[2021-11-05] MEDS: Hydrocortisone 10 mg Tablet PO SCH ×2 (09:04→20:10)
[2021-11-05] MEDS: Apixaban 5 MG TAB PO SCH ×2 (09:04→20:10)
[2021-11-05] MEDS: Simvastatin 10 MG TAB PO SCH (20:11)
[2021-11-06] MEDS: Albuterol 200 PUFF (6.7GM INHALER) INH SCH ×4 (01:10→21:04)
[2021-11-06 04:45] LABS: Band 9 % (5-11); Hemoglobin 10.5 g/dL (12.0-16.0); Lymphocytes 10 % (21-51); MDiff Complete? YES; Mean Corpuscular HGB CONC 33.4 g/dL (32.0-36.0); Mean Corpuscular Hemoglobin 34.3 pg (27.0-31.0); Mean Platelet Volume 10.3 fL (7.4-10.4); Monocytes 4 % (0-10); Neutrophil 77 % (42-75); Platelet Count 224 thou/uL (130-400); RBC Distribution Width 19.3 % (11.5-14.5); Red Blood Cell (RBC) Count 3.04 mill/uL (4.20-5.40); White Blood Cell (WBC) Count 10.2 thou/uL (4.8-10.8)
[2021-11-06] MEDS: Levothyroxine Sodium 88 MCG TAB PO SCH (05:41)
[2021-11-06] MEDS: Mometasone 100 MCG/PUFF (1 INHALER) INH SCH ×2 (05:44→17:51)
[2021-11-06] MEDS: Dexamethasone 4 MG TAB PO SCH (09:27)
[2021-11-06] MEDS: Hydrocortisone 10 mg Tablet PO SCH ×2 (09:27→21:04)
[2021-11-06] MEDS: Aspirin 325 mg Enteric Coated Tablet PO SCH (09:27)
[2021-11-06] MEDS: Azithromycin 500 MG in Sodium Chloride 0.9% 250 ML 250 ML IVPB SCH (09:28)
[2021-11-06] MEDS: Nebivolol HCl 5 MG TAB PO SCH (09:28)
[2021-11-06] MEDS: Zinc Sulfate 220 MG CAP PO SCH (09:28)
[2021-11-06] MEDS: Hydroxychloroquine Sulfate 200 MG TAB PO SCH ×2 (09:28→21:04)
[2021-11-06] MEDS: Apixaban 5 MG TAB PO SCH ×2 (09:28→21:04)
[2021-11-06] MEDS: Simvastatin 10 MG TAB PO SCH (21:12)
[2021-11-07] MEDS: Albuterol 200 PUFF (6.7GM INHALER) INH SCH ×4 (02:22→19:54)
[2021-11-07 04:31] LABS: Band 1 % (5-11); Hemoglobin 10.4 g/dL (12.0-16.0); Large Platelets SLIGHT; Lymphocytes 3 % (21-51); MDiff Complete? YES; Mean Corpuscular HGB CONC 31.9 g/dL (32.0-36.0); Mean Corpuscular Hemoglobin 32.6 pg (27.0-31.0); Mean Platelet Volume 10.5 fL (7.4-10.4); Metamyelocyte 1 % (0-0); Monocytes 5 % (0-10); Myelocyte 2 % (0-0); Neutrophil 88 % (42-75); Nucleated RBC 1 % (0); Platelet Count 276 thou/uL (130-400); Platelet Morphology Comment Appears Adequate; Polychromasia SLIGHT = 2-3 cells (100X) (0-2/hpf); RBC Distribution Width 20.4 % (11.5-14.5); Red Blood Cell (RBC) Count 3.19 mill/uL (4.20-5.40); White Blood Cell (WBC) Count 10.4 thou/uL (4.8-10.8)
[2021-11-07] MEDS: Levothyroxine Sodium 88 MCG TAB PO SCH (06:02)
[2021-11-07] MEDS: Mometasone 100 MCG/PUFF (1 INHALER) INH SCH ×2 (06:02→17:52)
[2021-11-07] MEDS: Azithromycin 500 MG in Sodium Chloride 0.9% 250 ML 250 ML IVPB SCH (08:46)
[2021-11-07] MEDS: Aspirin 325 mg Enteric Coated Tablet PO SCH (08:47)
[2021-11-07] MEDS: Zinc Sulfate 220 MG CAP PO SCH (08:47)
[2021-11-07] MEDS: Nebivolol HCl 5 MG TAB PO SCH (08:47)
[2021-11-07] MEDS: Dexamethasone 4 MG TAB PO SCH (08:47)
[2021-11-07] MEDS: Hydrocortisone 10 mg Tablet PO SCH ×2 (08:47→20:10)
[2021-11-07] MEDS: Apixaban 5 MG TAB PO SCH ×2 (08:47→20:10)
[2021-11-07] MEDS: Hydroxychloroquine Sulfate 200 MG TAB PO SCH ×2 (08:48→20:10)
[2021-11-07] MEDS: Ergocalciferol 1.25 MG(50,000 UNITS) CAP PO SCH (09:22)
[2021-11-07] MEDS: BARICITINIB 2 MG TAB PO SCH ×2 (13:25→13:26)
[2021-11-07] MEDS: Simvastatin 10 MG TAB PO SCH (20:10)
[2021-11-08] MEDS: Albuterol 200 PUFF (6.7GM INHALER) INH SCH ×4 (00:10→18:18)
[2021-11-08] MEDS: Mometasone 100 MCG/PUFF (1 INHALER) INH SCH ×2 (05:22→18:18)
[2021-11-08] MEDS: Levothyroxine Sodium 88 MCG TAB PO SCH (05:22)
[2021-11-08 05:47] LABS: Mean Corpuscular HGB CONC 32.4 g/dL (32.0-36.0); Mean Corpuscular Hemoglobin 32.9 pg (27.0-31.0); Mean Platelet Volume 10.3 fL (7.4-10.4); Platelet Count 285 thou/uL (130-400); RBC Distribution Width 22.4 % (11.5-14.5); Red Blood Cell (RBC) Count 3.02 mill/uL (4.20-5.40); White Blood Cell (WBC) Count 10.5 thou/uL (4.8-10.8)
[2021-11-08] MEDS: Aspirin 325 mg Enteric Coated Tablet PO SCH (09:41)
[2021-11-08] MEDS: Dexamethasone 4 MG TAB PO SCH (09:41)
[2021-11-08] MEDS: Apixaban 5 MG TAB PO SCH ×2 (09:41→19:41)
[2021-11-08] MEDS: Hydrocortisone 10 mg Tablet PO SCH ×2 (09:42→19:41)
[2021-11-08] MEDS: Zinc Sulfate 220 MG CAP PO SCH (09:42)
[2021-11-08] MEDS: Azithromycin 500 MG in Sodium Chloride 0.9% 250 ML 250 ML IVPB SCH (09:42)
[2021-11-08] MEDS: Nebivolol HCl 5 MG TAB PO SCH (09:42)
[2021-11-08] MEDS: Hydroxychloroquine Sulfate 200 MG TAB PO SCH ×2 (09:43→19:41)
[2021-11-08] MEDS: Simvastatin 10 MG TAB PO SCH (19:40)
[2021-11-09] MEDS: Albuterol 200 PUFF (6.7GM INHALER) INH SCH ×3 (01:09→13:08)
[2021-11-09] MEDS: Mometasone 100 MCG/PUFF (1 INHALER) INH SCH (06:17)
[2021-11-09] MEDS: Levothyroxine Sodium 88 MCG TAB PO SCH (06:18)
[2021-11-09] MEDS: Hydrocortisone 10 mg Tablet PO SCH (09:38)
[2021-11-09] MEDS: Azithromycin 500 MG in Sodium Chloride 0.9% 250 ML 250 ML IVPB SCH (09:38)
[2021-11-09] MEDS: Nebivolol HCl 5 MG TAB PO SCH (09:39)
[2021-11-09] MEDS: Aspirin 325 mg Enteric Coated Tablet PO SCH (09:39)
[2021-11-09] MEDS: Dexamethasone 4 MG TAB PO SCH (09:40)
[2021-11-09] MEDS: Apixaban 5 MG TAB PO SCH (09:40)
[2021-11-09] MEDS: Zinc Sulfate 220 MG CAP PO SCH (09:40)
[2021-11-09] MEDS: Hydroxychloroquine Sulfate 200 MG TAB PO SCH (09:40)
[2021-11-09 16:42] VITALS: BP 121/56; TEMP 98.1
== END 2021-11-09 16:35 | DRG 871 ==
LOC: ERS 11:41 → 2SW 14:54
PROVIDERS: ADMIT Specialist; ATTEND Specialist
PROC: 8E0ZXY6 Isolation (ICD-10-PCS; principal; 2021-10-31)
DX: A41.89 Other specified sepsis (principal); Z66 Do not resuscitate; U07.1 COVID-19; J12.82 Pneumonia due to coronavirus disease 2019; J96.21 Acute and chronic respiratory failure with hypoxia; E27.1 Primary adrenocortical insufficiency; J44.0 Chronic obstructive pulmonary disease with (acute) lower respiratory infection; E03.9 Hypothyroidism, unspecified; Z60.2 Problems related to living alone; E78.5 Hyperlipidemia, unspecified; F41.1 Generalized anxiety disorder; K59.09 Other constipation; K21.9 Gastro-esophageal reflux disease without esophagitis; J32.9 Chronic sinusitis, unspecified; Z85.118 Personal history of other malignant neoplasm of bronchus and lung; Z90.49 Acquired absence of other specified parts of digestive tract; Z87.891 Personal history of nicotine dependence; Z99.81 Dependence on supplemental oxygen; Z88.8 Allergy status to other drugs, medicaments and biological substances; Z88.1 Allergy status to other antibiotic agents; Z91.041 Radiographic dye allergy status
CPT/HCPCS: 36415; 71045; 71275; 80048; 80053; 83605; 83880; 84484; 85025; 85379; 85652; 86140; 87040; 93005; 96365; 96366; 96375; J0456; J0692; J1100; J1200; J1642; J2920; J3370; J7050; J8540; S0028; U0002

== ENCOUNTER 2022-02-25 08:26 | Outpatient (CLI) | payer BC | END 2022-02-25 08:27 | disposition home or self-care (01) | LOC: RAD 08:26 | PROVIDERS: ATTEND Internal Medicine Critical Care Medicine | DX: R06.00 Dyspnea, unspecified (principal) | CPT/HCPCS: 71046 ==

== ENCOUNTER 2022-04-08 08:14 | Outpatient (CLI) | payer BC ==
[~2022-04-08 08:14] MED LIST changes: +Iopamidol 370 76% 100 ML VIAL ONE; -Iopamidol-370 76% 500 ML 1 ML ONE
== END 2022-04-08 08:15 | disposition home or self-care (01) ==
LOC: CT 08:14
PROVIDERS: ATTEND Internal Medicine Hematology & Oncology
DX: C34.81 Malignant neoplasm of overlapping sites of right bronchus and lung (principal); C79.51 Secondary malignant neoplasm of bone; R91.1 Solitary pulmonary nodule; I70.0 Atherosclerosis of aorta; I70.8 Atherosclerosis of other arteries
CPT/HCPCS: 71260; 74177; 82565; Q9967

== ENCOUNTER 2022-05-12 09:48 | Outpatient (CLI) | payer BC | END 2022-05-12 09:49 | disposition home or self-care (01) | LOC: BICRAD 09:48 | PROVIDERS: ATTEND Specialist | DX: S79.911A Unspecified injury of right hip, initial encounter (principal); M25.551 Pain in right hip; Z96.641 Presence of right artificial hip joint ==

== ENCOUNTER 2022-07-03 15:05 | Inpatient (IN) | payer BC, MEDICARE ==
[~2022-07-03 15:05] MED LIST changes: -Iopamidol 370 76% 100 ML VIAL ONE; +Iopamidol-370 76% 500 ML 1 ML ONE
[2022-07-03] MEDS ORDERED: Ondansetron PF 4 MG/2 ML Vial ONE (15:59)
[2022-07-03] MEDS ORDERED: Morphine 4 MG/ML VIAL ONE (16:00)
[2022-07-03 16:08] LABS: Hemoglobin 12.3 g/dL (12.0-16.0); Mean Corpuscular HGB CONC 28.5 g/dL (32.0-36.0); Mean Corpuscular Hemoglobin 27.8 pg (27.0-31.0); Mean Corpuscular Volume 97.6 fL (78.0-98.0); Mean Platelet Volume 9.8 fL (7.4-10.4); Platelet Count 226 thou/uL (130-400); RBC Distribution Width 32.3 % (11.5-14.5); Red Blood Cell (RBC) Count 4.41 mill/uL (4.20-5.40)
[2022-07-03 16:18] LABS: INR-International Normal Ratio 1.1; PTT 28.2 sec (22.9-36.1); Prothrombin Time 14.2 sec (12.0-14.7)
[2022-07-03 16:20] LABS: D-Dimer Test 0.9 *mcg/mL (0.27-0.43)
[2022-07-03 16:26] LABS: ALT (SGPT) 15 U/L (8-55); AST (SGOT) 18 U/L (5-34); Albumin 4.5 g/dL (3.4-4.8); Alkaline Phosphatase 52 U/L (40-110); Anion Gap 13 mmol/L (10-20); BUN (Urea Nitrogen) 15 mg/dL (9.8-20.1); Bilirubin, Total 0.6 mg/dL (0.2-1.2); Calc. Creatinine Clearance 0 mL/min (70-130); Calcium 9.7 mg/dL (7.8-10.44); Carbon Dioxide 28 mmol/L (23-31); Chloride 107 mmol/L (98-107); Estimated GFR 87; Globulin 3.3 g/dL (2.4-3.5); Glucose 83 mg/dL (80-115); Lipase 17 U/L (8-78); Potassium 3.7 mmol/L (3.5-5.1); Protein, Total 7.8 g/dL (5.8-8.1); Sodium 144 mmol/L (136-145)
[2022-07-03 16:35] LABS: Anisocytosis MODERATE=16-30 cells (100X) (0-5/hpf); Band 10 % (5-11); Basophilic Stippling SLIGHT = 1-2 cells (100X) (None Seen); Hypochromia SLIGHT = 6-15 cells (100X) (0-5/hpf); Lymphocytes 10 % (21-51); MDiff Complete? YES; Metamyelocyte 4 % (0-0); Monocytes 4 % (0-10); Myelocyte 4 % (0-0); Neutrophil 67 % (42-75); Nucleated RBC 2 % (0); Ovalocytes SLIGHT = 2-5 cells (100X) (0-1/hpf); Platelet Morphology Comment Appears Adequate; Poikilocytosis SLIGHT = 6-15 cells (100X) (0-5/hpf); Polychromasia MODERATE = 3-4 cells (100X) (0-2/hpf); Reactive Lymphocytes 1 % (0-10); Schistocytes SLIGHT = 2-5 cells (100X) (0-1/hpf); Target Cells SLIGHT = 2-5 cells (100X) (0-1/hpf); Tear Drops SLIGHT = 2-5 cells (100X) (0-1/hpf); Vacuoles SLIGHT; White Blood Cell (WBC) Count 28.7 thou/uL (4.8-10.8)
[2022-07-03] MEDS ORDERED: diphenhydrAMINE 50 MG/ML VIAL ONE (17:45)
[2022-07-03] MEDS ORDERED: Famotidine/PF 20 mg/2ml Vial ONE (17:45)
[2022-07-03] MEDS ORDERED: methylPREDNISolone Sod Succ 40 MG VIAL ONE (17:46)
[2022-07-03 17:56] LABS: Bacteria/HPF 3+ HPF (None Seen); Bilirubin Negative (Negative); Blood, Urine Negative (Negative); Clarity Clear (Clear); Glucose, Urine (Dipstick) Greater than 1000 mg/dL (Negative); Ketone, Urine Negative (Negative); Leukocyte Negative Leu/uL (Negative); Nitrite 2+ (Negative); Protein, Urine (Dipstick) Negative (Neg-Trace); RBC/HPF 0-3 HPF (0-3); Specific Gravity, Urine 1.018 (1.002-1.036); Squamous Epithelial 0-3 HPF (0-3); Urobilinogen Normal mg/dL (Less than 2); WBC/HPF 0-3 HPF (0-3)
[2022-07-03] MEDS ORDERED: cefTRIAXone\\ROCEPHIN 2 GM VIAL ONE (18:37)
[2022-07-03] MEDS ORDERED: Ondansetron ODT 4 MG TAB SL PRN (23:45)
[2022-07-03] MEDS ORDERED: Acetaminophen 325 MG TAB PO PRN (23:45)
[2022-07-03] MEDS ORDERED: Ondansetron PF 4 MG/2 ML Vial IVP PRN (23:45)
[2022-07-04 00:16] VITALS: BMI 28.3
[2022-07-04] MEDS: Sodium Chloride 0.9% 1,000 ML IV SCH ×2 (01:05→08:22)
[2022-07-04] MEDS ORDERED: guaiFENesin ER 600 MG TAB PO PRN (08:39)
[2022-07-04] MEDS ORDERED: Non-Formulary Item 1 EACH (Fluticasone/Umeclidin/Vilanter [Trelegy Ellipta 100-62.5-25] 1 PO SCH (09:00)
[2022-07-04] MEDS ORDERED: Non-Formulary Item 1 EACH (Prednisone [Prednisone] 10 MG Tablet) PO SCH (09:00)
[2022-07-04] MEDS ORDERED: predniSONE 5 MG TAB PO SCH ×2 (09:15→21:00)
[2022-07-04] MEDS: Montelukast Sodium 10 mg Tablet PO SCH (09:24)
[2022-07-04] MEDS: Hydrocortisone 10 mg Tablet PO SCH ×2 (09:24→20:39)
[2022-07-04] MEDS: Apixaban 2.5 MG TAB PO SCH ×2 (09:24→20:40)
[2022-07-04] MEDS ORDERED: Budesonide 0.5 MG/2 ML NEB NEB SCH (11:00)
[2022-07-04] MEDS ORDERED: Arformoterol 15 MCG/2 ML NEB NEB SCH (11:00)
[2022-07-04] MEDS ORDERED: Levothyroxine Sodium 75 MCG TAB PO SCH (11:45)
[2022-07-04] MEDS ORDERED: MOMETASONE INH SCH (18:30)
[2022-07-04] MEDS: cefTRIAXone\\ROCEPHIN 1 GM in Sodium Chloride 0.9% 100 ML IVPB SCH (18:40)
[2022-07-04] MEDS: Arformoterol 15 MCG/2 ML NEB NEB SCH (20:10)
[2022-07-04] MEDS: Budesonide 0.5 MG/2 ML NEB NEB SCH (20:11)
[2022-07-04] MEDS: Mometasone 100 MCG/PUFF (1 INHALER) INH SCH (20:11)
[2022-07-04] MEDS: Simvastatin 10 MG TAB PO SCH (20:42)
[2022-07-04] MEDS ORDERED: Pravastatin Sodium 20 MG TAB PO SCH (21:00)
[2022-07-05] MEDS ORDERED: Levothyroxine Sodium 50 MCG TAB PO SCH (06:00)
[2022-07-05] MEDS ORDERED: Levothyroxine Sodium 88 MCG TAB PO ONE (06:00)
[2022-07-05] MEDS ORDERED: Levothyroxine Sodium 88 MCG TAB PO SCH (06:00)
[2022-07-05 06:59] LABS: Anion Gap 12 mmol/L (10-20); BUN (Urea Nitrogen) 13 mg/dL (9.8-20.1); Calc. Creatinine Clearance 107 mL/min (70-130); Calcium 9.5 mg/dL (7.8-10.44); Carbon Dioxide 25 mmol/L (23-31); Chloride 110 mmol/L (98-107); Estimated GFR 97; Glucose 113 mg/dL (80-115); Sodium 143 mmol/L (136-145)
[2022-07-05 07:03] LABS: Hemoglobin 11.2 g/dL (12.0-16.0); Mean Corpuscular HGB CONC 30.5 g/dL (32.0-36.0); Mean Corpuscular Hemoglobin 29.7 pg (27.0-31.0); Mean Corpuscular Volume 97.4 fL (78.0-98.0); Platelet Count 211 thou/uL (130-400); RBC Distribution Width 32.2 % (11.5-14.5); Red Blood Cell (RBC) Count 3.78 mill/uL (4.20-5.40); White Blood Cell (WBC) Count 14.3 thou/uL (4.8-10.8)
[2022-07-05] MEDS: Arformoterol 15 MCG/2 ML NEB NEB SCH ×2 (08:25→18:50)
[2022-07-05] MEDS: Budesonide 0.5 MG/2 ML NEB NEB SCH ×2 (08:26→18:50)
[2022-07-05] MEDS: Mometasone 100 MCG/PUFF (1 INHALER) INH SCH ×2 (08:26→18:51)
[2022-07-05] MEDS: Hydrocortisone 10 mg Tablet PO SCH ×2 (08:46→21:32)
[2022-07-05] MEDS: Montelukast Sodium 10 mg Tablet PO SCH (08:46)
[2022-07-05] MEDS: predniSONE 20 MG TAB PO SCH ×2 (08:46→21:33)
[2022-07-05] MEDS: Apixaban 2.5 MG TAB PO SCH ×2 (08:47→21:33)
[2022-07-05 09:38] LABS: Band 6 % (5-11); Hypochromia SLIGHT = 6-15 cells (100X) (0-5/hpf); Lymphocytes 7 % (21-51); MDiff Complete? YES; Metamyelocyte 8 % (0-0); Monocytes 5 % (0-10); Myelocyte 3 % (0-0); Neutrophil 66 % (42-75); Nucleated RBC 1 % (0); Platelet Morphology Comment Appears Adequate; Polychromasia SLIGHT = 2-3 cells (100X) (0-2/hpf); Reactive Lymphocytes 5 % (0-10); Target Cells SLIGHT = 2-5 cells (100X) (0-1/hpf)
[2022-07-05] MEDS: cefTRIAXone\\ROCEPHIN 1 GM in Sodium Chloride 0.9% 100 ML IVPB SCH (17:48)
[2022-07-05] MEDS ORDERED: Polyethylene Glycol 3350 17 GM Packet PO SCH (18:15)
[2022-07-05] MEDS: Simvastatin 10 MG TAB PO SCH (21:33)
[2022-07-06] MEDS: Mometasone 100 MCG/PUFF (1 INHALER) INH SCH ×2 (06:39→18:44)
[2022-07-06 07:07] LABS: Hemoglobin 11.5 g/dL (12.0-16.0); Mean Corpuscular Volume 96.8 fL (78.0-98.0); Mean Platelet Volume 9.4 fL (7.4-10.4); Platelet Count 221 thou/uL (130-400); RBC Distribution Width 32.5 % (11.5-14.5); Red Blood Cell (RBC) Count 4.11 mill/uL (4.20-5.40); White Blood Cell (WBC) Count 18.8 thou/uL (4.8-10.8)
[2022-07-06 07:12] LABS: Anion Gap 14 mmol/L (10-20); BUN (Urea Nitrogen) 16 mg/dL (9.8-20.1); Calc. Creatinine Clearance 94 mL/min (70-130); Calcium 9.3 mg/dL (7.8-10.44); Carbon Dioxide 25 mmol/L (23-31); Chloride 107 mmol/L (98-107); Estimated GFR 94; Glucose 127 mg/dL (80-115); Sodium 142 mmol/L (136-145)
[2022-07-06] MEDS: Arformoterol 15 MCG/2 ML NEB NEB SCH ×2 (07:25→18:43)
[2022-07-06] MEDS: Budesonide 0.5 MG/2 ML NEB NEB SCH ×2 (07:28→18:43)
[2022-07-06] MEDS: Apixaban 2.5 MG TAB PO SCH ×2 (09:05→20:23)
[2022-07-06] MEDS: Hydrocortisone 10 mg Tablet PO SCH ×2 (09:06→20:22)
[2022-07-06] MEDS: predniSONE 20 MG TAB PO SCH (09:06)
[2022-07-06] MEDS: Montelukast Sodium 10 mg Tablet PO SCH (09:06)
[2022-07-06 09:21] LABS: Anisocytosis SLIGHT = 6-15 cells (100X) (0-5/hpf); Band 3 % (5-11); Hypochromia SLIGHT = 6-15 cells (100X) (0-5/hpf); Lymphocytes 8 % (21-51); MDiff Complete? YES; Metamyelocyte 12 % (0-0); Monocytes 1 % (0-10); Myelocyte 7 % (0-0); Neutrophil 66 % (42-75); Nucleated RBC 1 % (0); Platelet Morphology Comment Appears Adequate; Reactive Lymphocytes 3 % (0-10); Schistocytes SLIGHT = 2-5 cells (100X) (0-1/hpf); Target Cells SLIGHT = 2-5 cells (100X) (0-1/hpf)
[2022-07-06] MEDS ORDERED: Non-Formulary Item 1 EACH (Acetaminophen With Codeine [Acetaminophen/Codeine #4] 300 MG/6 PO PRN (09:33)
[2022-07-06] MEDS ORDERED: Acetaminophen/Codeine 30-300mg Tablet PO PRN (10:11)
[2022-07-06] MEDS: cefTRIAXone\\ROCEPHIN 1 GM in Sodium Chloride 0.9% 100 ML IVPB SCH (18:08)
[2022-07-06] MEDS: Simvastatin 10 MG TAB PO SCH (20:23)
[2022-07-06] MEDS ORDERED: predniSONE 20 MG TAB PO SCH (21:00)
[2022-07-07] MEDS: Levothyroxine Sodium 75 MCG TAB PO SCH (05:34)
[2022-07-07 06:52] LABS: Anion Gap 12 mmol/L (10-20); BUN (Urea Nitrogen) 20 mg/dL (9.8-20.1); Calc. Creatinine Clearance 101 mL/min (70-130); Calcium 9.2 mg/dL (7.8-10.44); Carbon Dioxide 24 mmol/L (23-31); Chloride 109 mmol/L (98-107); Estimated GFR 96; Glucose 119 mg/dL (80-115); Potassium 4.3 mmol/L (3.5-5.1); Sodium 141 mmol/L (136-145)
[2022-07-07] MEDS: Mometasone 100 MCG/PUFF (1 INHALER) INH SCH ×2 (07:03→18:30)
[2022-07-07] MEDS: Arformoterol 15 MCG/2 ML NEB NEB SCH ×2 (07:05→18:29)
[2022-07-07] MEDS: Budesonide 0.5 MG/2 ML NEB NEB SCH ×2 (07:06→18:29)
[2022-07-07 07:24] LABS: Anisocytosis MODERATE=16-30 cells (100X) (0-5/hpf); Band 6 % (5-11); Hemoglobin 11.7 g/dL (12.0-16.0); Hypochromia SLIGHT = 6-15 cells (100X) (0-5/hpf); Lymphocytes 10 % (21-51); MDiff Complete? YES; Mean Corpuscular HGB CONC 27.6 g/dL (32.0-36.0); Mean Corpuscular Hemoglobin 27.1 pg (27.0-31.0); Mean Corpuscular Volume 98.1 fL (78.0-98.0); Mean Platelet Volume 10.7 fL (7.4-10.4); Metamyelocyte 7 % (0-0); Monocytes 4 % (0-10); Myelocyte 9 % (0-0); Neutrophil 64 % (42-75); Nucleated RBC 3 % (0); Platelet Count 223 thou/uL (130-400); Poikilocytosis SLIGHT = 6-15 cells (100X) (0-5/hpf); RBC Distribution Width 32.7 % (11.5-14.5); Red Blood Cell (RBC) Count 4.33 mill/uL (4.20-5.40); Schistocytes SLIGHT = 2-5 cells (100X) (0-1/hpf); Target Cells SLIGHT = 2-5 cells (100X) (0-1/hpf); Tear Drops SLIGHT = 2-5 cells (100X) (0-1/hpf); White Blood Cell (WBC) Count 21.6 thou/uL (4.8-10.8)
[2022-07-07] MEDS: Apixaban 2.5 MG TAB PO SCH ×2 (09:09→19:56)
[2022-07-07] MEDS: Hydrocortisone 10 mg Tablet PO SCH ×2 (09:10→19:55)
[2022-07-07] MEDS: Montelukast Sodium 10 mg Tablet PO SCH (09:10)
[2022-07-07] MEDS: Sulfameth/Trimethoprim DS 800-160mg TAB PO SCH ×2 (09:10→19:56)
[2022-07-07] MEDS: predniSONE 5 MG TAB PO SCH (16:56)
[2022-07-07] MEDS: cefTRIAXone\\ROCEPHIN 1 GM in Sodium Chloride 0.9% 100 ML IVPB SCH (18:42)
[2022-07-07] MEDS: Simvastatin 10 MG TAB PO SCH (19:56)
[2022-07-08] MEDS: Levothyroxine Sodium 75 MCG TAB PO SCH (05:36)
[2022-07-08 06:57] LABS: Hemoglobin 11.4 g/dL (12.0-16.0); Mean Corpuscular HGB CONC 30.4 g/dL (32.0-36.0); Mean Corpuscular Hemoglobin 29.1 pg (27.0-31.0); Mean Corpuscular Volume 95.7 fL (78.0-98.0); Mean Platelet Volume 9.2 fL (7.4-10.4); Platelet Count 201 thou/uL (130-400); RBC Distribution Width 32.5 % (11.5-14.5); Red Blood Cell (RBC) Count 3.92 mill/uL (4.20-5.40); White Blood Cell (WBC) Count 19.2 thou/uL (4.8-10.8)
[2022-07-08 06:58] LABS: Anion Gap 10 mmol/L (10-20); BUN (Urea Nitrogen) 20 mg/dL (9.8-20.1); Calc. Creatinine Clearance 98 mL/min (70-130); Calcium 9.3 mg/dL (7.8-10.44); Carbon Dioxide 26 mmol/L (23-31); Chloride 108 mmol/L (98-107); Estimated GFR 95; Glucose 129 mg/dL (80-115); Potassium 4.1 mmol/L (3.5-5.1); Sodium 140 mmol/L (136-145)
[2022-07-08] MEDS: Budesonide 0.5 MG/2 ML NEB NEB SCH ×2 (08:07→18:47)
[2022-07-08] MEDS: Arformoterol 15 MCG/2 ML NEB NEB SCH ×2 (08:08→18:47)
[2022-07-08] MEDS: Mometasone 100 MCG/PUFF (1 INHALER) INH SCH ×2 (08:10→18:48)
[2022-07-08 08:29] LABS: Anisocytosis MODERATE=16-30 cells (100X) (0-5/hpf); Band 9 % (5-11); Lymphocytes 11 % (21-51); MDiff Complete? YES; Metamyelocyte 6 % (0-0); Monocytes 6 % (0-10); Myelocyte 8 % (0-0); Neutrophil 60 % (42-75); Nucleated RBC 2 % (0); Platelet Morphology Comment Appears Adequate; Polychromasia MODERATE = 3-4 cells (100X) (0-2/hpf); Schistocytes SLIGHT = 2-5 cells (100X) (0-1/hpf); Target Cells SLIGHT = 2-5 cells (100X) (0-1/hpf)
[2022-07-08] MEDS ORDERED: Vancomycin HCl 1 GM in Sodium Chloride 0.9% 250 ML 250 ML IVPB SCH (09:00)
[2022-07-08] MEDS: HYDROcodone/Acetaminophen 5/325 mg Tablet PO PRN ×2 (09:33→20:11)
[2022-07-08] MEDS: Hydrocortisone 10 mg Tablet PO SCH ×2 (09:34→20:12)
[2022-07-08] MEDS: Apixaban 2.5 MG TAB PO SCH ×2 (09:34→20:12)
[2022-07-08] MEDS: predniSONE 5 MG TAB PO SCH ×2 (09:34→16:44)
[2022-07-08] MEDS: Lidocaine 5% Patch TD SCH (09:35)
[2022-07-08] MEDS: Montelukast Sodium 10 mg Tablet PO SCH (09:35)
[2022-07-08] MEDS: Cefepime 2 GM in Sodium Chloride 0.9% 100 ML IVPB SCH ×2 (09:35→20:12)
[2022-07-08] MEDS: VANCOMYCIN 1.25 GM/250 ML BAG 1.25 GM in Premix Bag 1 BAG IVPB SCH (10:58)
[2022-07-08] MEDS: Transdermal Patch Removal TOP SCH (20:12)
[2022-07-08] MEDS: Simvastatin 10 MG TAB PO SCH (20:12)
[2022-07-09] MEDS: Levothyroxine Sodium 75 MCG TAB PO SCH (05:39)
[2022-07-09 07:04] LABS: Hemoglobin 11.2 g/dL (12.0-16.0); Mean Corpuscular HGB CONC 29.2 g/dL (32.0-36.0); Mean Corpuscular Hemoglobin 27.8 pg (27.0-31.0); Mean Corpuscular Volume 95.2 fL (78.0-98.0); Mean Platelet Volume 8.8 fL (7.4-10.4); Platelet Count 207 thou/uL (130-400); RBC Distribution Width 32.6 % (11.5-14.5); Red Blood Cell (RBC) Count 4.02 mill/uL (4.20-5.40); White Blood Cell (WBC) Count 18.8 thou/uL (4.8-10.8)
[2022-07-09 07:22] LABS: Anion Gap 14 mmol/L (10-20); BUN (Urea Nitrogen) 21 mg/dL (9.8-20.1); Calc. Creatinine Clearance 92 mL/min (70-130); Carbon Dioxide 22 mmol/L (23-31); Chloride 109 mmol/L (98-107); Estimated GFR 93; Glucose 113 mg/dL (80-115); Potassium 4.6 mmol/L (3.5-5.1); Sodium 140 mmol/L (136-145)
[2022-07-09] MEDS: Arformoterol 15 MCG/2 ML NEB NEB SCH ×2 (07:51→19:46)
[2022-07-09] MEDS: Budesonide 0.5 MG/2 ML NEB NEB SCH ×2 (07:52→19:47)
[2022-07-09] MEDS: Mometasone 100 MCG/PUFF (1 INHALER) INH SCH ×2 (07:53→19:47)
[2022-07-09] MEDS: Lidocaine 5% Patch TD SCH (08:36)
[2022-07-09] MEDS: Hydrocortisone 10 mg Tablet PO SCH ×2 (08:39→20:36)
[2022-07-09] MEDS: predniSONE 5 MG TAB PO SCH ×2 (08:40→17:06)
[2022-07-09] MEDS: Apixaban 2.5 MG TAB PO SCH ×2 (08:40→20:36)
[2022-07-09] MEDS: Cefepime 2 GM in Sodium Chloride 0.9% 100 ML IVPB SCH ×2 (08:41→20:36)
[2022-07-09] MEDS: Montelukast Sodium 10 mg Tablet PO SCH (08:41)
[2022-07-09] MEDS: HYDROcodone/Acetaminophen 10/325 mg Tablet PO PRN (08:48)
[2022-07-09 09:12] LABS: Anisocytosis MODERATE=16-30 cells (100X) (0-5/hpf); Band 4 % (5-11); Lymphocytes 24 % (21-51); MDiff Complete? YES; Metamyelocyte 6 % (0-0); Monocytes 8 % (0-10); Myelocyte 9 % (0-0); Neutrophil 48 % (42-75); Nucleated RBC 1 % (0); Platelet Morphology Comment Appears Adequate; Polychromasia SLIGHT = 2-3 cells (100X) (0-2/hpf); Reactive Lymphocytes 1 % (0-10); Schistocytes SLIGHT = 2-5 cells (100X) (0-1/hpf); Target Cells SLIGHT = 2-5 cells (100X) (0-1/hpf)
[2022-07-09] MEDS: VANCOMYCIN 1.25 GM/250 ML BAG 1.25 GM in Premix Bag 1 BAG IVPB SCH (11:11)
[2022-07-09] MEDS: Simvastatin 10 MG TAB PO SCH (20:36)
[2022-07-09] MEDS: Transdermal Patch Removal TOP SCH (20:37)
[2022-07-10] MEDS: Levothyroxine Sodium 75 MCG TAB PO SCH (06:16)
[2022-07-10] MEDS: Arformoterol 15 MCG/2 ML NEB NEB SCH ×2 (06:35→18:49)
[2022-07-10] MEDS: Budesonide 0.5 MG/2 ML NEB NEB SCH ×2 (06:37→18:49)
[2022-07-10] MEDS: Mometasone 100 MCG/PUFF (1 INHALER) INH SCH ×2 (06:38→18:50)
[2022-07-10 07:26] LABS: Vancomycin, Trough 5.6 ug/mL
[2022-07-10 08:53] LABS: Hemoglobin 11.6 g/dL (12.0-16.0); Mean Corpuscular Hemoglobin 27.7 pg (27.0-31.0); Mean Corpuscular Volume 95.3 fL (78.0-98.0); Mean Platelet Volume 10.8 fL (7.4-10.4); Platelet Count 201 thou/uL (130-400); RBC Distribution Width 32.5 % (11.5-14.5); White Blood Cell (WBC) Count 16.8 thou/uL (4.8-10.8)
[2022-07-10 08:59] LABS: Anion Gap 11 mmol/L (10-20); BUN (Urea Nitrogen) 19 mg/dL (9.8-20.1); Calc. Creatinine Clearance 92 mL/min (70-130); Calcium 9.3 mg/dL (7.8-10.44); Carbon Dioxide 28 mmol/L (23-31); Chloride 106 mmol/L (98-107); Estimated GFR 93; Glucose 152 mg/dL (80-115); Potassium 4.4 mmol/L (3.5-5.1); Sodium 141 mmol/L (136-145)
[2022-07-10] MEDS: VANCOMYCIN 1.25 GM/250 ML BAG 1.25 GM in Premix Bag 1 BAG IVPB SCH (09:23)
[2022-07-10] MEDS: predniSONE 5 MG TAB PO SCH ×2 (09:25→16:50)
[2022-07-10] MEDS: Apixaban 2.5 MG TAB PO SCH ×2 (09:25→21:16)
[2022-07-10] MEDS: Cefepime 2 GM in Sodium Chloride 0.9% 100 ML IVPB SCH ×2 (09:25→21:16)
[2022-07-10] MEDS: Hydrocortisone 10 mg Tablet PO SCH ×2 (09:25→21:15)
[2022-07-10] MEDS: Montelukast Sodium 10 mg Tablet PO SCH (09:25)
[2022-07-10] MEDS: VANCOMYCIN 1.75 GM/500 ML BAG 1.75 GM in Premix Bag 1 BAG IVPB SCH (09:26)
[2022-07-10] MEDS: Lidocaine 5% Patch TD SCH (09:26)
[2022-07-10] MEDS: HYDROcodone/Acetaminophen 10/325 mg Tablet PO PRN (09:27)
[2022-07-10 10:02] LABS: Anisocytosis MARKED = >30 cells (100X) (0-5/hpf); Band 4 % (5-11); Large Platelets SLIGHT; Lymphocytes 17 % (21-51); MDiff Complete? YES; Metamyelocyte 23 % (0-0); Monocytes 2 % (0-10); Myelocyte 10 % (0-0); Neutrophil 44 % (42-75); Nucleated RBC 3 % (0); Platelet Morphology Comment Appears Adequate; Polychromasia MODERATE = 3-4 cells (100X) (0-2/hpf); Schistocytes SLIGHT = 2-5 cells (100X) (0-1/hpf); Target Cells SLIGHT = 2-5 cells (100X) (0-1/hpf)
[2022-07-10 10:04] LABS: Basophilic Stippling SLIGHT = 1-2 cells (100X) (None Seen)
[2022-07-10] MEDS: Simvastatin 10 MG TAB PO SCH (21:16)
[2022-07-10] MEDS: Transdermal Patch Removal TOP SCH (21:17)
[2022-07-11] MEDS: Levothyroxine Sodium 75 MCG TAB PO SCH (05:57)
[2022-07-11] MEDS: Arformoterol 15 MCG/2 ML NEB NEB SCH ×2 (06:49→18:58)
[2022-07-11] MEDS: Mometasone 100 MCG/PUFF (1 INHALER) INH SCH ×2 (06:51→19:00)
[2022-07-11] MEDS: Budesonide 0.5 MG/2 ML NEB NEB SCH ×2 (06:51→19:00)
[2022-07-11] MEDS: Apixaban 2.5 MG TAB PO SCH ×2 (08:48→21:50)
[2022-07-11] MEDS: Hydrocortisone 10 mg Tablet PO SCH ×2 (08:48→21:50)
[2022-07-11] MEDS: Cefepime 2 GM in Sodium Chloride 0.9% 100 ML IVPB SCH ×2 (08:48→21:50)
[2022-07-11] MEDS: predniSONE 5 MG TAB PO SCH ×2 (08:48→17:05)
[2022-07-11 08:49] LABS: Anion Gap 15 mmol/L (10-20); BUN (Urea Nitrogen) 23 mg/dL (9.8-20.1); Calc. Creatinine Clearance 95 mL/min (70-130); Calcium 10.1 mg/dL (7.8-10.44); Carbon Dioxide 25 mmol/L (23-31); Chloride 104 mmol/L (98-107); Estimated GFR 94; Glucose 124 mg/dL (80-115); Hemoglobin 11.6 g/dL (12.0-16.0); Mean Corpuscular HGB CONC 28.4 g/dL (32.0-36.0); Mean Corpuscular Hemoglobin 26.8 pg (27.0-31.0); Mean Corpuscular Volume 94.7 fL (78.0-98.0); Mean Platelet Volume 8.7 fL (7.4-10.4); Platelet Count 196 thou/uL (130-400); Potassium 5.4 mmol/L (3.5-5.1); RBC Distribution Width 32.8 % (11.5-14.5); Red Blood Cell (RBC) Count 4.31 mill/uL (4.20-5.40); Sodium 139 mmol/L (136-145)
[2022-07-11] MEDS: Montelukast Sodium 10 mg Tablet PO SCH (08:49)
[2022-07-11] MEDS: Lidocaine 5% Patch TD SCH (08:49)
[2022-07-11] MEDS: VANCOMYCIN 1.75 GM/500 ML BAG 1.75 GM in Premix Bag 1 BAG IVPB SCH (08:50)
[2022-07-11 09:24] LABS: Anisocytosis MARKED = >30 cells (100X) (0-5/hpf); Band 7 % (5-11); Basophilic Stippling SLIGHT = 1-2 cells (100X) (None Seen); Hypochromia SLIGHT = 6-15 cells (100X) (0-5/hpf); Lymphocytes 23 % (21-51); MDiff Complete? YES; Metamyelocyte 12 % (0-0); Monocytes 5 % (0-10); Myelocyte 3 % (0-0); Neutrophil 50 % (42-75); Nucleated RBC 6 % (0); Platelet Morphology Comment Appears Adequate; Polychromasia MODERATE = 3-4 cells (100X) (0-2/hpf); Schistocytes SLIGHT = 2-5 cells (100X) (0-1/hpf); Target Cells SLIGHT = 2-5 cells (100X) (0-1/hpf); Tear Drops SLIGHT = 2-5 cells (100X) (0-1/hpf); White Blood Cell (WBC) Count 18.7 thou/uL (4.8-10.8)
[2022-07-11] MEDS ORDERED: Furosemide 40 MG/4 ML VIAL SLOW IVP SCH (12:15)
[2022-07-11] MEDS: Simvastatin 10 MG TAB PO SCH (21:50)
[2022-07-11] MEDS: Transdermal Patch Removal TOP SCH (21:51)
[2022-07-11] MEDS: tiZANidine HCl 4 MG TAB PO PRN (21:53)
[2022-07-11] MEDS: HYDROcodone/Acetaminophen 10/325 mg Tablet PO PRN (21:53)
[2022-07-12] MEDS: Levothyroxine Sodium 75 MCG TAB PO SCH (05:58)
[2022-07-12] MEDS: Budesonide 0.5 MG/2 ML NEB NEB SCH ×2 (07:33→19:07)
[2022-07-12] MEDS: Arformoterol 15 MCG/2 ML NEB NEB SCH ×2 (07:33→19:07)
[2022-07-12 07:34] LABS: Anion Gap 12 mmol/L (10-20); BUN (Urea Nitrogen) 26 mg/dL (9.8-20.1); Calc. Creatinine Clearance 96 mL/min (70-130); Calcium 9.8 mg/dL (7.8-10.44); Carbon Dioxide 27 mmol/L (23-31); Chloride 103 mmol/L (98-107); Estimated GFR 95; Glucose 116 mg/dL (80-115); Potassium 4.3 mmol/L (3.5-5.1); Sodium 138 mmol/L (136-145)
[2022-07-12] MEDS: Mometasone 100 MCG/PUFF (1 INHALER) INH SCH ×2 (07:34→19:08)
[2022-07-12] MEDS: Hydrocortisone 10 mg Tablet PO SCH ×2 (08:47→21:30)
[2022-07-12] MEDS: Cefepime 2 GM in Sodium Chloride 0.9% 100 ML IVPB SCH ×2 (08:47→21:30)
[2022-07-12] MEDS: Lidocaine 5% Patch TD SCH (08:47)
[2022-07-12] MEDS: Montelukast Sodium 10 mg Tablet PO SCH (08:47)
[2022-07-12] MEDS: predniSONE 5 MG TAB PO SCH ×2 (08:47→17:58)
[2022-07-12] MEDS: Apixaban 2.5 MG TAB PO SCH ×2 (08:47→21:29)
[2022-07-12 09:05] LABS: Anisocytosis MODERATE=16-30 cells (100X) (0-5/hpf); Band 1 % (5-11); Hemoglobin 11.1 g/dL (12.0-16.0); Hypochromia SLIGHT = 6-15 cells (100X) (0-5/hpf); Lymphocytes 10 % (21-51); MDiff Complete? YES; Mean Corpuscular HGB CONC 28.8 g/dL (32.0-36.0); Mean Corpuscular Hemoglobin 27.2 pg (27.0-31.0); Mean Corpuscular Volume 94.6 fL (78.0-98.0); Mean Platelet Volume 9.5 fL (7.4-10.4); Metamyelocyte 7 % (0-0); Monocytes 8 % (0-10); Myelocyte 5 % (0-0); Neutrophil 61 % (42-75); Platelet Count 180 thou/uL (130-400); Platelet Morphology Comment Appears Adequate; RBC Distribution Width 32.6 % (11.5-14.5); Reactive Lymphocytes 8 % (0-10); Target Cells SLIGHT = 2-5 cells (100X) (0-1/hpf); White Blood Cell (WBC) Count 17.4 thou/uL (4.8-10.8)
[2022-07-12] MEDS: Simvastatin 10 MG TAB PO SCH (21:29)
[2022-07-12] MEDS: tiZANidine HCl 4 MG TAB PO PRN (21:30)
[2022-07-12] MEDS: HYDROcodone/Acetaminophen 10/325 mg Tablet PO PRN (21:30)
[2022-07-12] MEDS: Transdermal Patch Removal TOP SCH (21:30)
[2022-07-13] MEDS: Levothyroxine Sodium 75 MCG TAB PO SCH (05:23)
[2022-07-13] MEDS: Arformoterol 15 MCG/2 ML NEB NEB SCH ×2 (06:24→19:02)
[2022-07-13] MEDS: Budesonide 0.5 MG/2 ML NEB NEB SCH ×2 (06:24→19:02)
[2022-07-13] MEDS: Mometasone 100 MCG/PUFF (1 INHALER) INH SCH ×2 (06:25→19:03)
[2022-07-13] MEDS: Lidocaine 5% Patch TD SCH (08:53)
[2022-07-13] MEDS: predniSONE 5 MG TAB PO SCH ×2 (08:54→16:50)
[2022-07-13] MEDS: Cefepime 2 GM in Sodium Chloride 0.9% 100 ML IVPB SCH ×2 (08:54→21:54)
[2022-07-13] MEDS: Montelukast Sodium 10 mg Tablet PO SCH (08:54)
[2022-07-13] MEDS: Hydrocortisone 10 mg Tablet PO SCH ×2 (08:54→21:54)
[2022-07-13] MEDS: Apixaban 2.5 MG TAB PO SCH ×2 (08:54→21:54)
[2022-07-13 09:07] LABS: Anion Gap 14 mmol/L (10-20); BUN (Urea Nitrogen) 30 mg/dL (9.8-20.1); Calc. Creatinine Clearance 90 mL/min (70-130); Calcium 9.4 mg/dL (7.8-10.44); Carbon Dioxide 26 mmol/L (23-31); Chloride 104 mmol/L (98-107); Estimated GFR 90; Glucose 99 mg/dL (80-115); Potassium 4.7 mmol/L (3.5-5.1); Sodium 139 mmol/L (136-145)
[2022-07-13 09:08] LABS: Hemoglobin 11.6 g/dL (12.0-16.0); Mean Corpuscular HGB CONC 28.8 g/dL (32.0-36.0); Mean Corpuscular Hemoglobin 27.4 pg (27.0-31.0); Mean Corpuscular Volume 95.1 fL (78.0-98.0); Mean Platelet Volume 10.1 fL (7.4-10.4); Platelet Count 177 thou/uL (130-400); RBC Distribution Width 33.1 % (11.5-14.5); Red Blood Cell (RBC) Count 4.22 mill/uL (4.20-5.40); White Blood Cell (WBC) Count 14.5 thou/uL (4.8-10.8)
[2022-07-13 10:22] LABS: Anisocytosis MODERATE=16-30 cells (100X) (0-5/hpf); Band 2 % (5-11); Hypochromia SLIGHT = 6-15 cells (100X) (0-5/hpf); Lymphocytes 6 % (21-51); MDiff Complete? YES; Metamyelocyte 13 % (0-0); Monocytes 4 % (0-10); Myelocyte 4 % (0-0); Neutrophil 67 % (42-75); Nucleated RBC 1 % (0); Platelet Morphology Comment Appears Adequate; Poikilocytosis MODERATE=16-30 cells (100X) (0-5/hpf); Polychromasia SLIGHT = 2-3 cells (100X) (0-2/hpf); Reactive Lymphocytes 4 % (0-10)
[2022-07-13] MEDS: Simvastatin 10 MG TAB PO SCH (21:54)
[2022-07-13] MEDS: Transdermal Patch Removal TOP SCH (21:55)
[2022-07-14] MEDS: Levothyroxine Sodium 75 MCG TAB PO SCH (06:19)
[2022-07-14 06:58] LABS: Anion Gap 14 mmol/L (10-20); BUN (Urea Nitrogen) 30 mg/dL (9.8-20.1); Calc. Creatinine Clearance 91 mL/min (70-130); Calcium 9.3 mg/dL (7.8-10.44); Carbon Dioxide 25 mmol/L (23-31); Chloride 106 mmol/L (98-107); Estimated GFR 91; Glucose 106 mg/dL (80-115); Potassium 4.8 mmol/L (3.5-5.1); Sodium 140 mmol/L (136-145)
[2022-07-14] MEDS: Arformoterol 15 MCG/2 ML NEB NEB SCH ×2 (07:43→18:44)
[2022-07-14] MEDS: Budesonide 0.5 MG/2 ML NEB NEB SCH ×2 (07:43→18:44)
[2022-07-14] MEDS: Mometasone 100 MCG/PUFF (1 INHALER) INH SCH ×2 (08:01→18:45)
[2022-07-14 08:05] LABS: Hemoglobin 10.9 g/dL (12.0-16.0); Mean Corpuscular HGB CONC 29.2 g/dL (32.0-36.0); Mean Corpuscular Hemoglobin 27.9 pg (27.0-31.0); Mean Corpuscular Volume 95.4 fL (78.0-98.0); Mean Platelet Volume 10.2 fL (7.4-10.4); Platelet Count 159 thou/uL (130-400); White Blood Cell (WBC) Count 12.3 thou/uL (4.8-10.8)
[2022-07-14 08:34] LABS: Band 3 % (5-11); Hypersemented Neutrophil SLIGHT; Hypochromia SLIGHT = 6-15 cells (100X) (0-5/hpf); Lymphocytes 12 % (21-51); MDiff Complete? YES; Metamyelocyte 2 % (0-0); Monocytes 10 % (0-10); Myelocyte 1 % (0-0); Neutrophil 72 % (42-75); Polychromasia SLIGHT = 2-3 cells (100X) (0-2/hpf); Schistocytes SLIGHT = 2-5 cells (100X) (0-1/hpf); Target Cells SLIGHT = 2-5 cells (100X) (0-1/hpf)
[2022-07-14] MEDS: predniSONE 5 MG TAB PO SCH ×2 (09:00→21:16)
[2022-07-14] MEDS: Hydrocortisone 10 mg Tablet PO SCH ×2 (09:01→21:16)
[2022-07-14] MEDS: Apixaban 2.5 MG TAB PO SCH ×2 (09:01→21:16)
[2022-07-14] MEDS: Montelukast Sodium 10 mg Tablet PO SCH (09:01)
[2022-07-14] MEDS: Cefepime 2 GM in Sodium Chloride 0.9% 100 ML IVPB SCH ×2 (09:02→21:16)
[2022-07-14] MEDS: Lidocaine 5% Patch TD SCH (09:05)
[2022-07-14] MEDS: HYDROcodone/Acetaminophen 10/325 mg Tablet PO PRN (09:07)
[2022-07-14] MEDS: Transdermal Patch Removal TOP SCH (21:17)
[2022-07-14] MEDS: Simvastatin 10 MG TAB PO SCH (22:50)
[2022-07-15] MEDS ORDERED: Levothyroxine Sodium 88 MCG TAB PO SCH ×2 (06:00→07:43)
[2022-07-15] MEDS: Levothyroxine Sodium 75 MCG TAB PO SCH (06:35)
[2022-07-15 07:03] LABS: Anisocytosis MODERATE=16-30 cells (100X) (0-5/hpf); Band 4 % (5-11); Hemoglobin 10.9 g/dL (12.0-16.0); Hypersemented Neutrophil SLIGHT; Hypochromia SLIGHT = 6-15 cells (100X) (0-5/hpf); Lymphocytes 12 % (21-51); MDiff Complete? YES; Mean Corpuscular HGB CONC 29.1 g/dL (32.0-36.0); Mean Corpuscular Hemoglobin 27.6 pg (27.0-31.0); Mean Corpuscular Volume 94.8 fL (78.0-98.0); Mean Platelet Volume 10.2 fL (7.4-10.4); Metamyelocyte 8 % (0-0); Monocytes 4 % (0-10); Myelocyte 9 % (0-0); Neutrophil 63 % (42-75); Nucleated RBC 1 % (0); Platelet Count 161 thou/uL (130-400); RBC Distribution Width 32.5 % (11.5-14.5); Red Blood Cell (RBC) Count 3.95 mill/uL (4.20-5.40); Schistocytes SLIGHT = 2-5 cells (100X) (0-1/hpf); Target Cells SLIGHT = 2-5 cells (100X) (0-1/hpf); White Blood Cell (WBC) Count 12.1 thou/uL (4.8-10.8)
[2022-07-15] MEDS: Arformoterol 15 MCG/2 ML NEB NEB SCH ×2 (07:26→18:52)
[2022-07-15] MEDS: Budesonide 0.5 MG/2 ML NEB NEB SCH ×2 (07:27→18:52)
[2022-07-15] MEDS: Mometasone 100 MCG/PUFF (1 INHALER) INH SCH ×2 (07:28→18:53)
[2022-07-15] MEDS: predniSONE 5 MG TAB PO SCH ×2 (09:24→17:04)
[2022-07-15] MEDS: Hydrocortisone 10 mg Tablet PO SCH ×2 (09:25→19:53)
[2022-07-15] MEDS: Apixaban 2.5 MG TAB PO SCH ×2 (09:25→19:53)
[2022-07-15] MEDS: Montelukast Sodium 10 mg Tablet PO SCH (09:25)
[2022-07-15] MEDS: Cefdinir 300 MG CAP PO SCH ×2 (09:26→19:53)
[2022-07-15] MEDS: Lidocaine 5% Patch TD SCH (09:26)
[2022-07-15] MEDS: Simvastatin 10 MG TAB PO SCH (19:53)
[2022-07-15] MEDS: Transdermal Patch Removal TOP SCH (19:54)
[2022-07-15] MEDS: HYDROcodone/Acetaminophen 10/325 mg Tablet PO PRN (19:55)
[2022-07-16] MEDS ORDERED: Levothyroxine Sodium 75 MCG TAB PO SCH ×2 (06:00→07:00)
[2022-07-16 07:04] LABS: Hemoglobin 10.5 g/dL (12.0-16.0); Mean Corpuscular HGB CONC 29.2 g/dL (32.0-36.0); Mean Corpuscular Hemoglobin 27.3 pg (27.0-31.0); Mean Corpuscular Volume 93.5 fL (78.0-98.0); Mean Platelet Volume 9.5 fL (7.4-10.4); Platelet Count 160 thou/uL (130-400); RBC Distribution Width 32.5 % (11.5-14.5); Red Blood Cell (RBC) Count 3.86 mill/uL (4.20-5.40); White Blood Cell (WBC) Count 13.4 thou/uL (4.8-10.8)
[2022-07-16] MEDS: Mometasone 100 MCG/PUFF (1 INHALER) INH SCH (07:44)
[2022-07-16] MEDS: Arformoterol 15 MCG/2 ML NEB NEB SCH (07:44)
[2022-07-16] MEDS: Budesonide 0.5 MG/2 ML NEB NEB SCH (07:44)
[2022-07-16 07:56] LABS: Anisocytosis MODERATE=16-30 cells (100X) (0-5/hpf); Band 2 % (5-11); Hypochromia SLIGHT = 6-15 cells (100X) (0-5/hpf); Lymphocytes 20 % (21-51); MDiff Complete? YES; Metamyelocyte 5 % (0-0); Monocytes 6 % (0-10); Myelocyte 3 % (0-0); Neutrophil 64 % (42-75); Nucleated RBC 2 % (0); Platelet Morphology Comment Appears Adequate; Polychromasia SLIGHT = 2-3 cells (100X) (0-2/hpf); Schistocytes SLIGHT = 2-5 cells (100X) (0-1/hpf); Target Cells SLIGHT = 2-5 cells (100X) (0-1/hpf)
[2022-07-16] MEDS: predniSONE 5 MG TAB PO SCH (08:42)
[2022-07-16] MEDS: Montelukast Sodium 10 mg Tablet PO SCH (08:43)
[2022-07-16] MEDS: Apixaban 2.5 MG TAB PO SCH (08:43)
[2022-07-16] MEDS: Lidocaine 5% Patch TD SCH (08:43)
[2022-07-16] MEDS: Cefdinir 300 MG CAP PO SCH (08:43)
[2022-07-16] MEDS: Hydrocortisone 10 mg Tablet PO SCH (10:39)
[2022-07-16 15:56] VITALS: BP 143/72; TEMP 98.2
[2022-07-17] MEDS ORDERED: Levothyroxine Sodium 75 MCG TAB PO SCH (06:00)
== END 2022-07-16 15:53 | disposition home or self-care (01) | DRG 872 ==
LOC: ERS 15:05 → T4-A 23:06 → OBSVTOIN 07-04 10:39
PROVIDERS: ADMIT Student in an Organized Health Care Education/Training Program; ATTEND Internal Medicine
DX: A41.9 Sepsis, unspecified organism (principal); N30.00 Acute cystitis without hematuria; C34.90 Malignant neoplasm of unspecified part of unspecified bronchus or lung; E27.1 Primary adrenocortical insufficiency; D84.821 Immunodeficiency due to drugs; J44.9 Chronic obstructive pulmonary disease, unspecified; E03.9 Hypothyroidism, unspecified; I10 Essential (primary) hypertension; E78.5 Hyperlipidemia, unspecified; K21.9 Gastro-esophageal reflux disease without esophagitis; M54.9 Dorsalgia, unspecified; G89.29 Other chronic pain; F41.9 Anxiety disorder, unspecified; Z96.641 Presence of right artificial hip joint; J84.10 Pulmonary fibrosis, unspecified; T38.0X5A Adverse effect of glucocorticoids and synthetic analogues, initial encounter; Z20.822 Contact with and (suspected) exposure to COVID-19; Z86.16 Personal history of COVID-19; Z88.1 Allergy status to other antibiotic agents; Z88.8 Allergy status to other drugs, medicaments and biological substances; Z79.01 Long term (current) use of anticoagulants; Z86.718 Personal history of other venous thrombosis and embolism; Z91.041 Radiographic dye allergy status; Z79.890 Hormone replacement therapy; Z99.81 Dependence on supplemental oxygen; Z79.899 Other long term (current) drug therapy; Z90.49 Acquired absence of other specified parts of digestive tract; Z98.890 Other specified postprocedural states; Z87.891 Personal history of nicotine dependence
CPT/HCPCS: 36415; 71045; 71046; 71275; 74174; 80048; 80053; 80202; 81003; 81015; 83605; 83690; 84484; 85025; 85060; 85379; 85610; 85730; 87040; 87811; 93005; 94640; 96365; 96366; 96375; G0378; J0692; J0696; J1200; J1940; J2270; J2405; J2920; J3370; J3490; J7050; J7512; J7620; J7626; Q9967; S0028; U0003; U0005

== ENCOUNTER 2022-12-26 13:21 | Outpatient (CLI) | payer BC | END 2022-12-26 13:22 | disposition home or self-care (01) | LOC: BICRAD 13:21 | PROVIDERS: ATTEND Specialist | DX: M54.50 Low back pain, unspecified (principal); M25.551 Pain in right hip | CPT/HCPCS: 72100 ==

== ENCOUNTER 2023-02-18 09:25 | Outpatient (CLI) | payer BC | END 2023-02-18 09:26 | disposition home or self-care (01) | LOC: RAD 09:25 | PROVIDERS: ATTEND Internal Medicine Critical Care Medicine | DX: R06.00 Dyspnea, unspecified (principal) | CPT/HCPCS: 71046 ==

== ENCOUNTER 2023-04-20 18:16 | Inpatient (IN) | payer BC, MEDICARE ==
[2023-04-20 19:05] LABS: Hematocrit 18.7 % (36.0-47.0); Hemoglobin 5.1 g/dL (12.0-16.0); Mean Corpuscular HGB CONC 27.3 g/dL (32.0-36.0); Mean Corpuscular Hemoglobin 19.5 pg (27.0-31.0); Mean Corpuscular Volume 71.6 fl (78.0-98.0); Platelet Count 274 10x3/uL (130-400); RBC Distribution Width 27.1 % (11.5-14.5); Red Blood Cell (RBC) Count 2.61 mill/uL (4.20-5.40); White Blood Cell (WBC) Count 16.4 10x3/uL (4.8-10.8)
[2023-04-20 19:13] LABS: Delete Auto Diff?? YES; Manual Diff?? YES
[2023-04-20 19:35] LABS: ALT (SGPT) 13 U/L (8-55); AST (SGOT) 22 U/L (5-34); Albumin 4.1 g/dL (3.4-4.8); Alkaline Phosphatase 35 U/L (40-110); Anion Gap 14 mmol/L (10-20); BUN (Urea Nitrogen) 16 mg/dL (9.8-20.1); Bilirubin, Total 0.6 mg/dL (0.2-1.2); Calc. Creatinine Clearance 0 mL/min (70-130); Calcium 10.9 mg/dL (7.8-10.44); Carbon Dioxide 26 mmol/L (23-31); Chloride 106 mmol/L (98-107); Estimated GFR 90; Globulin 2.4 g/dL (2.4-3.5); Glucose 118 mg/dL (80-115); Potassium 4.3 mmol/L (3.5-5.1); Protein, Total 6.5 g/dL (5.8-8.1); Sodium 142 mmol/L (136-145)
[2023-04-20 19:46] LABS: Anisocytosis MODERATE=16-30 cells HPF (0-5); Band 5 % (5-11); Burr Cells SLIGHT = 2-5 cells HPF (0-1); CellaVision Operator ID LAB.KB; Hypersegmented Neutrophil SLIGHT (None Seen); Hypochromia MODERATE=16-30 cells HPF (0-5); Large Platelets 3.8 % (0-5); Lymphocytes 8 % (21-51); Metamyelocyte 5 % (0-0); Microcytosis SLIGHT = 6-15 cells HPF (0-5); Myelocyte 7 % (0-0); Neutrophil 75 % (42-75); Nucleated RBC (Manual Ct) 2 % (0); Ovalocytes SLIGHT = 2-5 cells HPF (0-1); Platelet Adequacy Comment Platelets Normal; Polychromasia SLIGHT = 2-3 cells HPF (0-2); Reactive Lymphocytes 1 % (0-10); Reflex for Review?? YES; Target Cells SLIGHT = 2-5 cells HPF (0-1); Tear Drops SLIGHT = 2-5 cells HPF (0-1); Total Cell Count 106
[2023-04-20 20:06] LABS: CKMB 2.6 ng/mL (0-6.6)
[2023-04-20] MEDS ORDERED: Hydrocortisone Sod Succ/PF 100 MG in Sodium Chloride 0.9% 50 ML IVP SCH (20:30)
[2023-04-20] MEDS ORDERED: Fludrocortisone Acetate 0.1 MG TAB PO SCH (20:30)
[2023-04-20 22:33] LABS: Critical Call Chem Troponin I RESULT DECREASING; Troponin I 1.004 ng/mL (< 0.028)
[2023-04-20 23:09] LABS: Bacteria/HPF 2+ HPF (None Seen); Bilirubin Negative (Negative); Blood, Urine Negative (Negative); CAUTI Indications for Culture Dysuria,urgency,freq; Clarity Clear (Clear); Glucose, Urine (Dipstick) Normal (Negative); Ketone, Urine Negative (Negative); Leukocyte Negative Leu/uL (Negative); Nitrite Negative (Negative); Protein, Urine (Dipstick) Negative (Neg-Trace); RBC/HPF 0-3 HPF (0-3); Specific Gravity, Urine 1.011 (1.002-1.036); Squamous Epithelial 0-3 HPF (0-3); Urobilinogen Normal mg/dL (Less than 2); WBC/HPF 0-3 HPF (0-3)
[2023-04-20] MEDS ORDERED: Ipratropium/Albuterol 3 ML NEB NEB PRN (23:10)
[2023-04-20 23:12] LABS: Urine Culture Reflex No No
[2023-04-20] MEDS ORDERED: Acetaminophen 325 MG TAB PO PRN (23:15)
[2023-04-20] MEDS ORDERED: Ondansetron PF 4 MG/2 ML Vial IVP PRN (23:15)
[2023-04-20] MEDS: Sodium Chloride 0.9% 1,000 ML IV SCH (23:15)
[2023-04-20] MEDS ORDERED: Ondansetron ODT 4 MG TAB SL PRN (23:15)
[2023-04-21 01:21] LABS: Critical Call Chem Troponin I RESULT DECREASING; Troponin I 0.866 ng/mL (< 0.028)
[2023-04-21] MEDS: Hydrocortisone Sod Succ/PF 100 mg/2 ml Vial IVP SCH ×2 (04:02→10:18)
[2023-04-21] MEDS: Sodium Chloride 0.9% 1,000 ML IV SCH ×2 (05:55→14:50)
[2023-04-21 07:33] LABS: Mean Corpuscular HGB CONC 30.1 g/dL (32.0-36.0); Mean Corpuscular Hemoglobin 23.4 pg (27.0-31.0); Platelet Count 261 10x3/uL (130-400); RBC Distribution Width 23.9 % (11.5-14.5); Red Blood Cell (RBC) Count 3.67 mill/uL (4.20-5.40); White Blood Cell (WBC) Count 17.6 10x3/uL (4.8-10.8)
[2023-04-21] MEDS ORDERED: Senokot S 8.6-50 MG TAB PO PRN (07:38)
[2023-04-21 07:59] LABS: Hematocrit 28.6 % (36.0-47.0); Hemoglobin 8.6 g/dL (12.0-16.0); Manual Diff?? YES; Mean Corpuscular Volume 77.9 fl (78.0-98.0)
[2023-04-21 08:00] LABS: Delete Auto Diff?? YES
[2023-04-21 08:49] LABS: Anisocytosis SLIGHT = 6-15 cells HPF (0-5); Band 3 % (5-11); CellaVision Operator ID LAB.GE; Hypochromia MODERATE=16-30 cells HPF (0-5); Lymphocytes 10 % (21-51); Metamyelocyte 9 % (0-0); Monocytes 2 % (0-10); Myelocyte 5 % (0-0); Neutrophil 71 % (42-75); Nucleated RBC (Manual Ct) 3 % (0); Platelet Adequacy Comment Platelets Normal; Polychromasia MARKED = >4 cells HPF (0-2); Reactive Lymphocytes 1 % (0-10); Reflex for Review?? YES; Spherocytes SLIGHT = 1-5 cells HPF (None Seen); Target Cells SLIGHT = 2-5 cells HPF (0-1); Total Cell Count 105
[2023-04-21 09:09] LABS: Schistocytes SLIGHT = 2-5 cells (100X) (0-1/hpf)
[2023-04-21] MEDS: Famotidine 20 MG TAB PO SCH ×2 (10:18→21:37)
[2023-04-21] MEDS: Budesonide 0.5 MG/2 ML NEB NEB SCH ×2 (10:26→19:05)
[2023-04-21] MEDS ORDERED: methylPREDNISolone Sod Succ/PF 125 MG/2 ML VIAL IVP SCH (12:00)
[2023-04-21] MEDS: Ipratropium Bromide 2.5 ml Neb NEB SCH ×2 (13:33→19:05)
[2023-04-21] MEDS: Levalbuterol HCl 0.63 MG/3 ML NEB NEB SCH ×2 (14:06→23:59)
[2023-04-21] MEDS: methylPREDNISolone Sod Succ/PF 125 MG/2 ML VIAL IVP SCH ×2 (14:48→21:38)
[2023-04-21] MEDS ORDERED: Levalbuterol HCl 0.63 MG/3 ML NEB NEB SCH (15:00)
[2023-04-21] MEDS: dilTIAZem CD 120 MG CAP PO SCH (21:36)
[2023-04-21] MEDS: predniSONE 50 MG TAB PO SCH (21:37)
[2023-04-21 23:18] LABS: SARS-CoV-2 NAA Rapid Test Not Detected (NotDetected)
[2023-04-22] MEDS: Ipratropium Bromide 2.5 ml Neb NEB SCH ×4 (00:01→19:38)
[2023-04-22] MEDS: predniSONE 50 MG TAB PO SCH ×2 (02:39→09:48)
[2023-04-22] MEDS: methylPREDNISolone Sod Succ/PF 125 MG/2 ML VIAL IVP SCH ×4 (02:39→21:02)
[2023-04-22] MEDS: Levothyroxine Sodium 88 MCG TAB PO SCH (05:43)
[2023-04-22] MEDS: Sodium Chloride 0.9% 1,000 ML IV SCH (05:47)
[2023-04-22 06:18] LABS: Hematocrit 25.7 % (36.0-47.0); Hemoglobin 7.6 g/dL (12.0-16.0); Mean Corpuscular HGB CONC 29.6 g/dL (32.0-36.0); Mean Corpuscular Hemoglobin 22.7 pg (27.0-31.0); Mean Corpuscular Volume 76.7 fl (78.0-98.0); Platelet Count 223 10x3/uL (130-400); RBC Distribution Width 24.9 % (11.5-14.5); Red Blood Cell (RBC) Count 3.35 mill/uL (4.20-5.40); White Blood Cell (WBC) Count 16.2 10x3/uL (4.8-10.8)
[2023-04-22 06:38] LABS: Anion Gap 10 mmol/L (10-20); BUN (Urea Nitrogen) 12 mg/dL (9.8-20.1); Calc. Creatinine Clearance 92 mL/min (70-130); Calcium 8.4 mg/dL (7.8-10.44); Carbon Dioxide 25 mmol/L (23-31); Chloride 114 mmol/L (98-107); Estimated GFR 97; Glucose 141 mg/dL (80-115); Potassium 3.4 mmol/L (3.5-5.1); Sodium 146 mmol/L (136-145)
[2023-04-22 06:44] LABS: Delete Auto Diff?? YES; Manual Diff?? YES
[2023-04-22 07:19] LABS: Anisocytosis MODERATE=16-30 cells HPF (0-5); Band 2 % (5-11); Burr Cells SLIGHT = 2-5 cells HPF (0-1); CellaVision Operator ID LAB.GE; Hypochromia MODERATE=16-30 cells HPF (0-5); Large Platelets 0.9 % (0-5); Lymphocytes 6 % (21-51); Metamyelocyte 7 % (0-0); Monocytes 2 % (0-10); Myelocyte 9 % (0-0); Neutrophil 74 % (42-75); Nucleated RBC (Manual Ct) 1 % (0); Platelet Adequacy Comment Platelets Normal; Polychromasia MARKED = >4 cells HPF (0-2); Smudge Cells 3.7 %; Target Cells SLIGHT = 2-5 cells HPF (0-1); Total Cell Count 108
[2023-04-22] MEDS: Budesonide 0.5 MG/2 ML NEB NEB SCH ×2 (07:28→19:38)
[2023-04-22] MEDS: Levalbuterol HCl 0.63 MG/3 ML NEB NEB SCH ×2 (07:28→13:40)
[2023-04-22] MEDS ORDERED: diphenhydrAMINE 50 MG CAP PO SCH (08:00)
[2023-04-22] MEDS ORDERED: Milk Of Magnesia 30 ML UDCUP PO PRN (09:00)
[2023-04-22] MEDS: Pantoprazole 40 MG VIAL IVP SCH ×2 (09:49→21:03)
[2023-04-22] MEDS: HYDROcodone/Acetaminophen 5/325 mg Tablet PO PRN ×2 (09:59→21:20)
[2023-04-22] MEDS ORDERED: Iopamidol-370 76% 500 ML MDV (1 ML CHARGE) ONE (12:48)
[2023-04-22] MEDS ORDERED: Communication Order-Pharmacy FS SCH (18:15)
[2023-04-22] MEDS: Doxycycline 100 MG in Sodium Chloride 0.9% 100 ML IVPB SCH (21:01)
[2023-04-22] MEDS: dilTIAZem CD 120 MG CAP PO SCH (21:02)
[2023-04-23] MEDS: Levalbuterol HCl 0.63 MG/3 ML NEB NEB SCH ×4 (00:01→23:37)
[2023-04-23] MEDS: Ipratropium Bromide 2.5 ml Neb NEB SCH ×4 (00:02→18:53)
[2023-04-23] MEDS: methylPREDNISolone Sod Succ/PF 125 MG/2 ML VIAL IVP SCH ×4 (00:16→14:41)
[2023-04-23] MEDS: Sodium Chloride 0.9% 1,000 ML IV SCH ×2 (03:37→21:22)
[2023-04-23 03:56] LABS: Hematocrit 24.9 % (36.0-47.0); Hemoglobin 7.4 g/dL (12.0-16.0); Mean Corpuscular HGB CONC 29.7 g/dL (32.0-36.0); Mean Corpuscular Hemoglobin 22.7 pg (27.0-31.0); Mean Corpuscular Volume 76.4 fl (78.0-98.0); Platelet Count 247 10x3/uL (130-400); RBC Distribution Width 25.4 % (11.5-14.5); Red Blood Cell (RBC) Count 3.26 mill/uL (4.20-5.40)
[2023-04-23 04:03] LABS: Delete Auto Diff?? YES; Manual Diff?? YES
[2023-04-23 04:17] LABS: Anion Gap 11 mmol/L (10-20); BUN (Urea Nitrogen) 10 mg/dL (9.8-20.1); Calc. Creatinine Clearance 92 mL/min (70-130); Calcium 8.3 mg/dL (7.8-10.44); Carbon Dioxide 26 mmol/L (23-31); Chloride 109 mmol/L (98-107); Estimated GFR 97; Glucose 131 mg/dL (80-115); Potassium 3.2 mmol/L (3.5-5.1); Sodium 143 mmol/L (136-145)
[2023-04-23 04:34] LABS: Anisocytosis MODERATE=16-30 cells HPF (0-5); Band 1 % (5-11); CellaVision Operator ID lab.abc; Hypochromia MODERATE=16-30 cells HPF (0-5); Lymphocytes 3 % (21-51); Metamyelocyte 7 % (0-0); Microcytosis SLIGHT = 6-15 cells HPF (0-5); Monocytes 4 % (0-10); Neutrophil 86 % (42-75); Nucleated RBC (Manual Ct) 5 % (0); Platelet Adequacy Comment Platelets Normal; Polychromasia SLIGHT = 2-3 cells HPF (0-2); Smudge Cells 2.8 %; Total Cell Count 106
[2023-04-23] MEDS: Levothyroxine Sodium 88 MCG TAB PO SCH (06:09)
[2023-04-23] MEDS ORDERED: Lidocaine 1% (PF) 30 ML VIAL ONE (06:36)
[2023-04-23] MEDS: Budesonide 0.5 MG/2 ML NEB NEB SCH ×2 (07:27→18:54)
[2023-04-23] MEDS ORDERED: Potassium Chloride 20 MEQ in Premix Bag 1 BAG IVPB SCH (07:45)
[2023-04-23] MEDS ORDERED: Potassium Chloride 20 MEQ TAB PO SCH (07:45)
[2023-04-23] MEDS ORDERED: Electrolyte Replacement Protocol FS PRN (07:45)
[2023-04-23] MEDS: HYDROcodone/Acetaminophen 5/325 mg Tablet PO PRN ×2 (08:17→21:21)
[2023-04-23] MEDS: Doxycycline 100 MG in Sodium Chloride 0.9% 100 ML IVPB SCH ×2 (10:28→21:22)
[2023-04-23] MEDS: Pantoprazole 40 MG VIAL IVP SCH ×2 (10:28→21:21)
[2023-04-23] MEDS ORDERED: Furosemide 20 MG/2 ML VIAL SLOW IVP SCH (11:30)
[2023-04-23] MEDS: predniSONE 50 MG TAB PO SCH ×3 (11:52→23:37)
[2023-04-23] MEDS: dilTIAZem CD 120 MG CAP PO SCH (21:21)
[2023-04-24] MEDS: HYDROcodone/Acetaminophen 5/325 mg Tablet PO PRN ×2 (02:27→20:26)
[2023-04-24] MEDS: Ipratropium Bromide 2.5 ml Neb NEB SCH ×5 (02:28→23:48)
[2023-04-24] MEDS: predniSONE 50 MG TAB PO SCH (05:48)
[2023-04-24] MEDS: Budesonide 0.5 MG/2 ML NEB NEB SCH ×2 (05:49→19:09)
[2023-04-24] MEDS ORDERED: diphenhydrAMINE 50 MG CAP PO SCH (06:00)
[2023-04-24 06:13] LABS: #Basophils 0.2 thou/uL (0.0-0.2); #Monocytes 0.4 thou/uL (0.11-0.59); #Neutrophils 16.4 thou/uL (1.40-6.50); %Basophils 0.8 % (0.0-1.0); %Lymphocytes 2.5 % (21.0-51.0); %Monocytes 1.8 % (0.0-10.0); %Neutrophils 77.5 % (42.0-75.0); Hematocrit 25.5 % (36.0-47.0); Hemoglobin 7.6 g/dL (12.0-16.0); Mean Corpuscular HGB CONC 29.8 g/dL (32.0-36.0); Mean Corpuscular Volume 77.3 fl (78.0-98.0); Platelet Count 232 10x3/uL (130-400); RBC Distribution Width 26.5 % (11.5-14.5); White Blood Cell (WBC) Count 21.2 10x3/uL (4.8-10.8)
[2023-04-24 06:33] LABS: Anion Gap 10 mmol/L (10-20); BUN (Urea Nitrogen) 15 mg/dL (9.8-20.1); Calc. Creatinine Clearance 90 mL/min (70-130); Calcium 7.9 mg/dL (7.8-10.44); Carbon Dioxide 28 mmol/L (23-31); Chloride 110 mmol/L (98-107); Estimated GFR 97; Glucose 122 mg/dL (80-115); Potassium 3.4 mmol/L (3.5-5.1); Sodium 145 mmol/L (136-145)
[2023-04-24] MEDS ORDERED: Lidocaine 1% (PF) 30 ML VIAL ONE (06:52)
[2023-04-24] MEDS ORDERED: Hydrocortisone Sod Succ/PF 100 mg/2 ml Vial ONE (07:48)
[2023-04-24] MEDS: Levalbuterol HCl 0.63 MG/3 ML NEB NEB SCH ×3 (07:50→23:47)
[2023-04-24] MEDS ORDERED: Potassium Chloride 20 MEQ TAB PO SCH (08:00)
[2023-04-24] MEDS: Doxycycline 100 MG in Sodium Chloride 0.9% 100 ML IVPB SCH ×2 (09:26→20:27)
[2023-04-24] MEDS: Pantoprazole 40 MG VIAL IVP SCH ×2 (09:27→20:27)
[2023-04-24] MEDS ORDERED: Iopamidol 370 76% 100 ML VIAL ONE (10:23)
[2023-04-24] MEDS: methylPREDNISolone Sod Succ 40 MG VIAL IVP SCH ×2 (12:21→17:52)
[2023-04-24] MEDS ORDERED: GoLYTELY 4,000 ml Bottle PO SCH (13:00)
[2023-04-24] MEDS ORDERED: Magnesium Citrate 300 ML BOT PO SCH (14:45)
[2023-04-24] MEDS: Sodium Chloride 0.9% 1,000 ML IV SCH (15:37)
[2023-04-24 16:11] LABS: Potassium 3.7 mmol/L (3.5-5.1)
[2023-04-24] MEDS: Polyethylene Glycol 3350 17 GM Packet PO PRN (18:28)
[2023-04-24] MEDS: dilTIAZem CD 120 MG CAP PO SCH (20:27)
[2023-04-25] MEDS: methylPREDNISolone Sod Succ 40 MG VIAL IVP SCH ×4 (00:58→18:03)
[2023-04-25] MEDS: Levothyroxine Sodium 88 MCG TAB PO SCH (05:31)
[2023-04-25 07:21] LABS: Hematocrit 25.9 % (36.0-47.0); Hemoglobin 7.5 g/dL (12.0-16.0); Mean Corpuscular Hemoglobin 23.1 pg (27.0-31.0); Platelet Count 233 10x3/uL (130-400); RBC Distribution Width 26.8 % (11.5-14.5); Red Blood Cell (RBC) Count 3.25 mill/uL (4.20-5.40); White Blood Cell (WBC) Count 17.1 10x3/uL (4.8-10.8)
[2023-04-25 07:48] LABS: Anion Gap 10 mmol/L (10-20); BUN (Urea Nitrogen) 18 mg/dL (9.8-20.1); Calc. Creatinine Clearance 98 mL/min (70-130); Calcium 7.8 mg/dL (7.8-10.44); Carbon Dioxide 29 mmol/L (23-31); Chloride 113 mmol/L (98-107); Delete Auto Diff?? YES; Estimated GFR 99; Glucose 126 mg/dL (80-115); Manual Diff?? YES; Mean Corpuscular Volume 79.7 fl (78.0-98.0); Sodium 148 mmol/L (136-145)
[2023-04-25] MEDS: Budesonide 0.5 MG/2 ML NEB NEB SCH ×2 (08:12→17:22)
[2023-04-25] MEDS: Levalbuterol HCl 0.63 MG/3 ML NEB NEB SCH ×3 (08:13→17:18)
[2023-04-25] MEDS: Ipratropium Bromide 2.5 ml Neb NEB SCH ×3 (08:13→17:19)
[2023-04-25] MEDS: Sodium Chloride 0.9% 1,000 ML IV SCH (08:28)
[2023-04-25] MEDS: HYDROcodone/Acetaminophen 5/325 mg Tablet PO PRN ×2 (08:31→20:42)
[2023-04-25] MEDS: Doxycycline 100 MG in Sodium Chloride 0.9% 100 ML IVPB SCH ×2 (08:32→20:30)
[2023-04-25] MEDS: Pantoprazole 40 MG VIAL IVP SCH ×2 (08:33→20:31)
[2023-04-25 08:53] LABS: Anisocytosis MODERATE=16-30 cells HPF (0-5); Band 1 % (5-11); Burr Cells SLIGHT = 2-5 cells HPF (0-1); CellaVision Operator ID LAB.NR; Hypochromia MODERATE=16-30 cells HPF (0-5); Lymphocytes 1 % (21-51); Macrocytosis SLIGHT = 6-15 cells HPF (0-5); Metamyelocyte 1 % (0-0); Monocytes 11 % (0-10); Neutrophil 86 % (42-75); Nucleated RBC (Manual Ct) 2 % (0); Platelet Adequacy Comment Platelets Normal; Polychromasia SLIGHT = 2-3 cells HPF (0-2); Smudge Cells 0.9 %; Stomatocytes SLIGHT = 2-5 cells HPF (0-1); Target Cells SLIGHT = 2-5 cells HPF (0-1); Total Cell Count 108
[2023-04-25] MEDS: dilTIAZem CD 180 MG CAP PO SCH (20:31)
[2023-04-26] MEDS: methylPREDNISolone Sod Succ 40 MG VIAL IVP SCH ×2 (00:50→05:14)
[2023-04-26] MEDS: HYDROcodone/Acetaminophen 5/325 mg Tablet PO PRN ×2 (01:49→19:36)
[2023-04-26] MEDS: Ipratropium Bromide 2.5 ml Neb NEB SCH ×5 (01:54→18:35)
[2023-04-26 04:59] LABS: Hematocrit 26.2 % (36.0-47.0); Hemoglobin 7.6 g/dL (12.0-16.0); Mean Corpuscular Hemoglobin 22.8 pg (27.0-31.0); Mean Corpuscular Volume 78.7 fl (78.0-98.0); Platelet Count 221 10x3/uL (130-400); RBC Distribution Width 26.8 % (11.5-14.5); Red Blood Cell (RBC) Count 3.33 mill/uL (4.20-5.40); White Blood Cell (WBC) Count 19.3 10x3/uL (4.8-10.8)
[2023-04-26 05:03] LABS: Delete Auto Diff?? YES; Manual Diff?? YES
[2023-04-26] MEDS: Levothyroxine Sodium 88 MCG TAB PO SCH (05:14)
[2023-04-26 05:17] LABS: Anion Gap 12 mmol/L (10-20); BUN (Urea Nitrogen) 16 mg/dL (9.8-20.1); Calc. Creatinine Clearance 104 mL/min (70-130); Calcium 7.8 mg/dL (7.8-10.44); Carbon Dioxide 29 mmol/L (23-31); Chloride 111 mmol/L (98-107); Estimated GFR 100; Glucose 129 mg/dL (80-115); Potassium 3.6 mmol/L (3.5-5.1); Sodium 148 mmol/L (136-145)
[2023-04-26 05:31] LABS: Anisocytosis MARKED = >30 cells HPF (0-5); CellaVision Operator ID LAB.CLH1; Hypochromia SLIGHT = 6-15 cells HPF (0-5); Lymphocytes 6 % (21-51); Microcytosis SLIGHT = 6-15 cells HPF (0-5); Monocytes 2 % (0-10); Neutrophil 92 % (42-75); Nucleated RBC (Manual Ct) 2 % (0); Platelet Adequacy Comment Platelets Normal; Polychromasia MARKED = >4 cells HPF (0-2); Target Cells MODERATE= 6-15 cells HPF (0-1); Total Cell Count 104
[2023-04-26] MEDS ORDERED: PROPOFOL 200 MG/20 ML VIAL ONE (08:09)
[2023-04-26] MEDS: Budesonide 0.5 MG/2 ML NEB NEB SCH ×3 (10:25→18:34)
[2023-04-26] MEDS: Levalbuterol HCl 0.63 MG/3 ML NEB NEB SCH ×4 (10:27→18:35)
[2023-04-26] MEDS: Pantoprazole 40 MG VIAL IVP SCH ×2 (11:13→21:03)
[2023-04-26] MEDS ORDERED: Furosemide 40 MG/4 ML VIAL SLOW IVP SCH (11:15)
[2023-04-26 11:50] LABS: Actual Bicarbonate (HCO3a) 27.6 mEq/L (22-28); CO2 Tension 48.4 mmHg (35.0-45.0); Calcium, Ionized (arterial) 0.97 mmol/L (1.12-1.30); Hematocrit-ABG 27 % (36.0-47.0); Hemoglobin (Hb) 9.2 g/dL (12.0-16.0); O2 Tension (PaO2), arterial 77.7 mmHg (> 80.0); Potassium - ABG Lab 3.53 mmol/L (3.70-5.30); pH, Arterial 7.374 (7.35-7.45)
[2023-04-26 12:03] LABS: Puncture Site RRA
[2023-04-26] MEDS: Doxycycline 100 MG in Sodium Chloride 0.9% 100 ML IVPB SCH ×2 (12:49→21:03)
[2023-04-26] MEDS: Sodium Chloride 0.9% 1,000 ML IV SCH (12:52)
[2023-04-26] MEDS: predniSONE 20 MG TAB PO SCH (16:56)
[2023-04-26] MEDS: dilTIAZem CD 180 MG CAP PO SCH (21:03)
[2023-04-27] MEDS: HYDROcodone/Acetaminophen 5/325 mg Tablet PO PRN ×2 (00:50→13:12)
[2023-04-27] MEDS: Ipratropium Bromide 2.5 ml Neb NEB SCH ×4 (01:16→18:13)
[2023-04-27 04:32] LABS: #Basophils 0.2 thou/uL (0.0-0.2); #Monocytes 0.4 thou/uL (0.11-0.59); #Neutrophils 20.7 thou/uL (1.40-6.50); %Basophils 0.9 % (0.0-1.0); %Lymphocytes 2.5 % (21.0-51.0); %Monocytes 1.4 % (0.0-10.0); %Neutrophils 80.8 % (42.0-75.0); Hemoglobin 7.3 g/dL (12.0-16.0); Mean Corpuscular HGB CONC 29.2 g/dL (32.0-36.0); Mean Corpuscular Hemoglobin 23.4 pg (27.0-31.0); Mean Corpuscular Volume 80.1 fl (78.0-98.0); Platelet Count 189 10x3/uL (130-400); RBC Distribution Width 27.3 % (11.5-14.5); Red Blood Cell (RBC) Count 3.12 mill/uL (4.20-5.40); White Blood Cell (WBC) Count 25.6 10x3/uL (4.8-10.8)
[2023-04-27 04:54] LABS: BUN (Urea Nitrogen) 15 mg/dL (9.8-20.1); Calc. Creatinine Clearance 110 mL/min (70-130); Carbon Dioxide 29 mmol/L (23-31); Estimated GFR 101; Glucose 88 mg/dL (80-115)
[2023-04-27 05:03] LABS: Anion Gap 13 mmol/L (10-20); Chloride 108 mmol/L (98-107); Potassium 2.9 mmol/L (3.5-5.1); Sodium 146 mmol/L (136-145)
[2023-04-27] MEDS: Levothyroxine Sodium 88 MCG TAB PO SCH (06:03)
[2023-04-27] MEDS: Levalbuterol HCl 0.63 MG/3 ML NEB NEB SCH ×2 (07:02→14:08)
[2023-04-27] MEDS: Budesonide 0.5 MG/2 ML NEB NEB SCH ×2 (07:03→18:13)
[2023-04-27] MEDS: Potassium Chloride 20 MEQ TAB PO SCH ×2 (08:10→12:08)
[2023-04-27] MEDS: Doxycycline 100 MG in Sodium Chloride 0.9% 100 ML IVPB SCH ×2 (08:11→21:45)
[2023-04-27] MEDS: predniSONE 20 MG TAB PO SCH ×2 (08:11→17:34)
[2023-04-27] MEDS: Furosemide 40 MG/4 ML VIAL SLOW IVP SCH (08:12)
[2023-04-27] MEDS: Pantoprazole 40 MG VIAL IVP SCH ×2 (08:12→21:45)
[2023-04-27] MEDS: dilTIAZem CD 180 MG CAP PO SCH (21:45)
[2023-04-28] MEDS: Ipratropium Bromide 2.5 ml Neb NEB SCH ×4 (00:02→18:19)
[2023-04-28] MEDS: Levalbuterol HCl 0.63 MG/3 ML NEB NEB SCH ×4 (00:02→18:17)
[2023-04-28 05:13] LABS: Hematocrit 26.1 % (36.0-47.0); Hemoglobin 7.5 g/dL (12.0-16.0); Mean Corpuscular HGB CONC 28.7 g/dL (32.0-36.0); Mean Corpuscular Hemoglobin 22.9 pg (27.0-31.0); Mean Corpuscular Volume 79.6 fl (78.0-98.0); Platelet Count 137 10x3/uL (130-400); RBC Distribution Width 28.3 % (11.5-14.5); Red Blood Cell (RBC) Count 3.28 mill/uL (4.20-5.40); White Blood Cell (WBC) Count 21.1 10x3/uL (4.8-10.8)
[2023-04-28 05:14] LABS: Manual Diff?? YES
[2023-04-28 05:15] LABS: Delete Auto Diff?? YES
[2023-04-28 05:38] LABS: Anion Gap 9 mmol/L (10-20); BUN (Urea Nitrogen) 19 mg/dL (9.8-20.1); Calc. Creatinine Clearance 87 mL/min (70-130); Calcium 8.2 mg/dL (7.8-10.44); Carbon Dioxide 29 mmol/L (23-31); Chloride 111 mmol/L (98-107); Estimated GFR 96; Glucose 123 mg/dL (80-115); Potassium 4.4 mmol/L (3.5-5.1); Sodium 145 mmol/L (136-145)
[2023-04-28 05:39] LABS: Anisocytosis MODERATE=16-30 cells HPF (0-5); CellaVision Operator ID LAB.CLH1; Eosinophils 2 % (0-10); Hypochromia MODERATE=16-30 cells HPF (0-5); Lymphocytes 4 % (21-51); Microcytosis SLIGHT = 6-15 cells HPF (0-5); Monocytes 1 % (0-10); Neutrophil 91 % (42-75); Nucleated RBC (Manual Ct) 3 % (0); Platelet Adequacy Comment Platelets Normal; Polychromasia MARKED = >4 cells HPF (0-2); Promyelocytes 1 % (0-0); Reactive Lymphocytes 1 % (0-10); Target Cells MODERATE= 6-15 cells HPF (0-1); Total Cell Count 103
[2023-04-28] MEDS: Levothyroxine Sodium 88 MCG TAB PO SCH (05:56)
[2023-04-28] MEDS: Budesonide 0.5 MG/2 ML NEB NEB SCH ×2 (07:16→18:19)
[2023-04-28] MEDS: Doxycycline 100 MG in Sodium Chloride 0.9% 100 ML IVPB SCH ×2 (08:28→20:40)
[2023-04-28] MEDS: predniSONE 20 MG TAB PO SCH ×2 (08:29→16:18)
[2023-04-28] MEDS: Furosemide 40 MG/4 ML VIAL SLOW IVP SCH (08:29)
[2023-04-28] MEDS: Pantoprazole 40 MG VIAL IVP SCH ×2 (08:29→20:40)
[2023-04-28] MEDS: HYDROcodone/Acetaminophen 5/325 mg Tablet PO PRN ×2 (08:32→19:19)
[2023-04-28] MEDS: dilTIAZem CD 180 MG CAP PO SCH (20:40)
[2023-04-29] MEDS: Ipratropium Bromide 2.5 ml Neb NEB SCH ×4 (00:39→18:33)
[2023-04-29] MEDS: Levalbuterol HCl 0.63 MG/3 ML NEB NEB SCH ×5 (00:40→18:32)
[2023-04-29] MEDS: Levothyroxine Sodium 88 MCG TAB PO SCH (05:09)
[2023-04-29 05:25] LABS: Hematocrit 27.7 % (36.0-47.0); Mean Corpuscular HGB CONC 28.9 g/dL (32.0-36.0); Mean Corpuscular Hemoglobin 22.4 pg (27.0-31.0); Mean Corpuscular Volume 77.6 fl (78.0-98.0); Platelet Count 133 10x3/uL (130-400); RBC Distribution Width 28.3 % (11.5-14.5); Red Blood Cell (RBC) Count 3.57 mill/uL (4.20-5.40); White Blood Cell (WBC) Count 23.4 10x3/uL (4.8-10.8)
[2023-04-29 05:28] LABS: Delete Auto Diff?? YES; Manual Diff?? YES
[2023-04-29 05:48] LABS: Anion Gap 3 mmol/L (10-20); BUN (Urea Nitrogen) 23 mg/dL (9.8-20.1); Calc. Creatinine Clearance 90 mL/min (70-130); Calcium 9.4 mg/dL (7.8-10.44); Carbon Dioxide 30 mmol/L (23-31); Chloride 107 mmol/L (98-107); Estimated GFR 97; Glucose 133 mg/dL (80-115); Potassium 3.8 mmol/L (3.5-5.1); Sodium 136 mmol/L (136-145)
[2023-04-29] MEDS: Budesonide 0.5 MG/2 ML NEB NEB SCH ×2 (06:47→18:33)
[2023-04-29] MEDS ORDERED: Cyclobenzaprine 10 MG TAB PO SCH (08:30)
[2023-04-29] MEDS: HYDROcodone/Acetaminophen 5/325 mg Tablet PO PRN ×2 (08:43→20:19)
[2023-04-29] MEDS: predniSONE 20 MG TAB PO SCH ×2 (08:44→16:10)
[2023-04-29] MEDS: Pantoprazole 40 MG VIAL IVP SCH ×2 (08:45→20:20)
[2023-04-29] MEDS: Doxycycline 100 MG in Sodium Chloride 0.9% 100 ML IVPB SCH ×2 (08:45→20:19)
[2023-04-29] MEDS: Furosemide 40 MG/4 ML VIAL SLOW IVP SCH (09:36)
[2023-04-29 12:15] LABS: Band 9 % (5-11); Metamyelocyte 3 % (0-0); Monocytes 2 % (0-10); Myelocyte 9 % (0-0); Neutrophil 76 % (42-75); Nucleated RBC (Manual Ct) 2 % (0); Polychromasia SLIGHT = 2-3 cells (100X) (0-2/hpf); Reactive Lymphocytes 1 % (0-10)
[2023-04-29 12:16] LABS: Anisocytosis MODERATE=16-30 cells (100X) (0-5/hpf); Platelet Adequacy Comment Platelets Normal; Schistocytes SLIGHT = 2-5 cells (100X) (0-1/hpf); Target Cells SLIGHT = 2-5 cells (100X) (0-1/hpf)
[2023-04-29 12:19] LABS: Large Platelets SLIGHT (None Seen)
[2023-04-29] MEDS: dilTIAZem CD 180 MG CAP PO SCH (20:19)
[2023-04-29] MEDS: Polyethylene Glycol 3350 17 GM Packet PO PRN (20:19)
[2023-04-30] MEDS: Ipratropium Bromide 2.5 ml Neb NEB SCH ×4 (01:32→23:35)
[2023-04-30] MEDS: Levalbuterol HCl 0.63 MG/3 ML NEB NEB SCH ×5 (01:33→23:42)
[2023-04-30] MEDS: Levothyroxine Sodium 88 MCG TAB PO SCH (05:40)
[2023-04-30] MEDS: Budesonide 0.5 MG/2 ML NEB NEB SCH ×2 (06:50→23:30)
[2023-04-30 08:04] LABS: Hematocrit 26.1 % (36.0-47.0); Hemoglobin 7.7 g/dL (12.0-16.0); Mean Corpuscular HGB CONC 29.5 g/dL (32.0-36.0); Mean Corpuscular Hemoglobin 22.8 pg (27.0-31.0); Mean Corpuscular Volume 77.2 fl (78.0-98.0); Platelet Count 115 10x3/uL (130-400); RBC Distribution Width 28.5 % (11.5-14.5); Red Blood Cell (RBC) Count 3.38 mill/uL (4.20-5.40); White Blood Cell (WBC) Count 32.7 10x3/uL (4.8-10.8)
[2023-04-30 08:06] LABS: Delete Auto Diff?? YES; Manual Diff?? YES
[2023-04-30 08:21] LABS: Anion Gap 18 mmol/L (10-20); BUN (Urea Nitrogen) 42 mg/dL (9.8-20.1); Calc. Creatinine Clearance 70 mL/min (70-130); Carbon Dioxide 26 mmol/L (23-31); Chloride 104 mmol/L (98-107); Potassium 4.6 mmol/L (3.5-5.1); Sodium 143 mmol/L (136-145)
[2023-04-30 08:22] LABS: Calcium 10.4 mg/dL (7.8-10.44); Estimated GFR 82; Glucose 129 mg/dL (80-115)
[2023-04-30] MEDS: Pantoprazole 40 MG VIAL IVP SCH ×2 (08:48→20:25)
[2023-04-30] MEDS: predniSONE 20 MG TAB PO SCH ×2 (08:54→20:18)
[2023-04-30] MEDS: Furosemide 40 MG/4 ML VIAL SLOW IVP SCH (08:54)
[2023-04-30 09:08] LABS: Anisocytosis MODERATE=16-30 cells HPF (0-5); Band 2 % (5-11); Burr Cells SLIGHT = 2-5 cells HPF (0-1); CellaVision Operator ID LAB.GE; Giant Platelets 0.9 % (0-5); Hypersegmented Neutrophil SLIGHT (None Seen); Large Platelets 1.9 % (0-5); Lymphocytes 3 % (21-51); Metamyelocyte 4 % (0-0); Monocytes 3 % (0-10); Myelocyte 4 % (0-0); Neutrophil 84 % (42-75); Nucleated RBC (Manual Ct) 2 % (0); Platelet Adequacy Comment Platelets Decreased; Polychromasia MODERATE = 3-4 cells HPF (0-2); Target Cells SLIGHT = 2-5 cells HPF (0-1); Total Cell Count 106
[2023-04-30] MEDS: Doxycycline 100 MG in Sodium Chloride 0.9% 100 ML IVPB SCH ×2 (10:25→20:28)
[2023-04-30] MEDS ORDERED: Fleet Saline Enema 133 ML BOT PR SCH (10:30)
[2023-04-30 10:41] LABS: Hematocrit 23.5 % (36.0-47.0); Hemoglobin 6.8 g/dL (12.0-16.0); Mean Corpuscular HGB CONC 28.9 g/dL (32.0-36.0); Mean Corpuscular Hemoglobin 22.7 pg (27.0-31.0); Mean Corpuscular Volume 78.6 fl (78.0-98.0); Platelet Count 94 10x3/uL (130-400); RBC Distribution Width 28.6 % (11.5-14.5); Red Blood Cell (RBC) Count 2.99 mill/uL (4.20-5.40); White Blood Cell (WBC) Count 40.6 10x3/uL (4.8-10.8)
[2023-04-30] MEDS ORDERED: PHENYLEPHRINE-NS 100 MCG/ML 10 ML SYRINGE ONE (11:57)
[2023-04-30] MEDS ORDERED: PROPOFOL 200 MG/20 ML VIAL ONE (11:57)
[2023-04-30] MEDS ORDERED: Lidocaine 1% PF 5 ML VIAL ONE (11:57)
[2023-04-30] MEDS ORDERED: LevoFLOXacin 500 mg/D5W 500 MG in Premix Bag 1 BAG IVPB SCH (15:00)
[2023-04-30] MEDS ORDERED: LevoFLOXacin 750 mg/D5W 750 MG in Premix Bag 1 BAG IVPB SCH (15:15)
[2023-04-30] MEDS ORDERED: predniSONE 20 MG TAB ONE (17:26)
[2023-04-30 18:50] LABS: Mean Corpuscular HGB CONC 30.4 g/dL (32.0-36.0); Mean Corpuscular Hemoglobin 25.4 pg (27.0-31.0); RBC Distribution Width 26.5 % (11.5-14.5); Red Blood Cell (RBC) Count 4.01 mill/uL (4.20-5.40)
[2023-04-30 18:53] LABS: Platelet Count 83 10x3/uL (130-400)
[2023-04-30 18:54] LABS: Hematocrit 33.6 % (36.0-47.0); Hemoglobin 10.2 g/dL (12.0-16.0); Hemoglobin 10.3 g/dL (12.0-16.0); Mean Corpuscular Volume 83.8 fl (78.0-98.0)
[2023-04-30] MEDS: dilTIAZem CD 180 MG CAP PO SCH (20:18)
[2023-04-30] MEDS: Sodium Chloride 0.9% 1,000 ML IV SCH (20:18)
[2023-04-30] MEDS: HYDROcodone/Acetaminophen 5/325 mg Tablet PO PRN (20:23)
[2023-04-30 21:41] LABS: Lactic Acid 2.6 mmol/L (0.5-2.2)
[2023-04-30] MEDS ORDERED: Budesonide 0.5 MG/2 ML NEB ONE (23:29)
[2023-05-01] MEDS: Ipratropium Bromide 2.5 ml Neb NEB SCH ×4 (02:58→18:42)
[2023-05-01 05:19] LABS: Hematocrit 29.3 % (36.0-47.0); Hemoglobin 8.3 g/dL (12.0-16.0); Mean Corpuscular HGB CONC 28.3 g/dL (32.0-36.0); Mean Corpuscular Hemoglobin 25.1 pg (27.0-31.0); Platelet Count 96 10x3/uL (130-400); RBC Distribution Width 27.8 % (11.5-14.5); Red Blood Cell (RBC) Count 3.31 mill/uL (4.20-5.40)
[2023-05-01] MEDS: Levothyroxine Sodium 88 MCG TAB PO SCH (06:01)
[2023-05-01 06:20] LABS: Anion Gap 12 mmol/L (10-20); BUN (Urea Nitrogen) 25 mg/dL (9.8-20.1); Calc. Creatinine Clearance 98 mL/min (70-130); Calcium 8.1 mg/dL (7.8-10.44); Carbon Dioxide 22 mmol/L (23-31); Chloride 113 mmol/L (98-107); Estimated GFR 99; Glucose 111 mg/dL (80-115); Potassium 4.1 mmol/L (3.5-5.1); Sodium 143 mmol/L (136-145)
[2023-05-01] MEDS: Budesonide 0.5 MG/2 ML NEB NEB SCH ×2 (06:49→18:39)
[2023-05-01] MEDS: Levalbuterol HCl 0.63 MG/3 ML NEB NEB SCH ×3 (06:52→18:42)
[2023-05-01 07:51] LABS: Manual Diff?? YES; Mean Corpuscular Volume 88.5 fl (78.0-98.0)
[2023-05-01 07:52] LABS: Delete Auto Diff?? YES
[2023-05-01] MEDS: predniSONE 20 MG TAB PO SCH ×2 (09:05→17:44)
[2023-05-01] MEDS: Doxycycline 100 MG in Sodium Chloride 0.9% 100 ML IVPB SCH ×2 (09:05→20:59)
[2023-05-01] MEDS: HYDROcodone/Acetaminophen 5/325 mg Tablet PO PRN ×3 (09:05→20:58)
[2023-05-01] MEDS: Pantoprazole 40 MG VIAL IVP SCH ×2 (09:05→20:59)
[2023-05-01] MEDS: Sodium Chloride 0.9% 1,000 ML IV SCH (09:06)
[2023-05-01 09:09] LABS: Anisocytosis MODERATE=16-30 cells HPF (0-5); CellaVision Operator ID LAB.GE; Hypochromia MODERATE=16-30 cells HPF (0-5); Large Platelets 1.9 % (0-5); Lymphocytes 5 % (21-51); Metamyelocyte 5 % (0-0); Monocytes 2 % (0-10); Neutrophil 84 % (42-75); Platelet Adequacy Comment Platelets Decreased; Polychromasia MARKED = >4 cells HPF (0-2); Reactive Lymphocytes 5 % (0-10); Smudge Cells 1.9 %; Target Cells SLIGHT = 2-5 cells HPF (0-1); Total Cell Count 105
[2023-05-01] MEDS: LevoFLOXacin 750 mg/D5W 750 MG in Premix Bag 1 BAG IVPB SCH (17:44)
[2023-05-01] MEDS: dilTIAZem CD 180 MG CAP PO SCH (20:59)
[2023-05-02] MEDS: Levalbuterol HCl 0.63 MG/3 ML NEB NEB SCH ×5 (00:14→23:15)
[2023-05-02] MEDS: Ipratropium Bromide 2.5 ml Neb NEB SCH ×5 (00:14→23:15)
[2023-05-02 03:05] LABS: Hematocrit 29.3 % (36.0-47.0); Hemoglobin 8.9 g/dL (12.0-16.0); Mean Corpuscular HGB CONC 30.4 g/dL (32.0-36.0); Mean Corpuscular Hemoglobin 25.4 pg (27.0-31.0); Platelet Count 90 10x3/uL (130-400); RBC Distribution Width 27.3 % (11.5-14.5); Red Blood Cell (RBC) Count 3.51 mill/uL (4.20-5.40); White Blood Cell (WBC) Count 22.9 10x3/uL (4.8-10.8)
[2023-05-02 03:35] LABS: Delete Auto Diff?? YES; Manual Diff?? YES
[2023-05-02 04:03] LABS: Anisocytosis MODERATE=16-30 cells HPF (0-5); Band 3 % (5-11); Burr Cells SLIGHT = 2-5 cells HPF (0-1); CellaVision Operator ID lab.abc; Hypochromia SLIGHT = 6-15 cells HPF (0-5); Lymphocytes 1 % (21-51); Metamyelocyte 2 % (0-0); Microcytosis SLIGHT = 6-15 cells HPF (0-5); Myelocyte 5 % (0-0); Neutrophil 89 % (42-75); Platelet Adequacy Comment Platelets Decreased; Poikilocytosis SLIGHT = 6-15 cells HPF (0-5); Polychromasia MODERATE = 3-4 cells HPF (0-2); Target Cells SLIGHT = 2-5 cells HPF (0-1); Total Cell Count 104
[2023-05-02 04:18] LABS: Anion Gap 15 mmol/L (10-20); BUN (Urea Nitrogen) 18 mg/dL (9.8-20.1); Calc. Creatinine Clearance 96 mL/min (70-130); Calcium 9.1 mg/dL (7.8-10.44); Carbon Dioxide 21 mmol/L (23-31); Chloride 110 mmol/L (98-107); Estimated GFR 98; Glucose 113 mg/dL (80-115); Potassium 4.1 mmol/L (3.5-5.1); Sodium 142 mmol/L (136-145)
[2023-05-02 04:48] LABS: Mean Corpuscular Volume 83.5 fl (78.0-98.0)
[2023-05-02] MEDS: Levothyroxine Sodium 88 MCG TAB PO SCH (06:19)
[2023-05-02] MEDS: Budesonide 0.5 MG/2 ML NEB NEB SCH ×2 (06:42→18:09)
[2023-05-02] MEDS: predniSONE 20 MG TAB PO SCH ×2 (08:14→15:52)
[2023-05-02] MEDS: Doxycycline 100 MG in Sodium Chloride 0.9% 100 ML IVPB SCH ×2 (08:14→20:26)
[2023-05-02] MEDS: Pantoprazole 40 MG VIAL IVP SCH ×2 (08:15→20:26)
[2023-05-02] MEDS ORDERED: Hydrocortisone 10 mg Tablet PO SCH (12:15)
[2023-05-02] MEDS: HYDROcodone/Acetaminophen 5/325 mg Tablet PO PRN ×2 (12:37→20:23)
[2023-05-02] MEDS: LevoFLOXacin 750 mg/D5W 750 MG in Premix Bag 1 BAG IVPB SCH (15:50)
[2023-05-02] MEDS: dilTIAZem CD 180 MG CAP PO SCH (20:23)
[2023-05-02] MEDS: Hydrocortisone 10 mg Tablet PO SCH (20:24)
[2023-05-03] MEDS: Levothyroxine Sodium 88 MCG TAB PO SCH (05:48)
[2023-05-03] MEDS: Levalbuterol HCl 0.63 MG/3 ML NEB NEB SCH ×4 (07:02→23:12)
[2023-05-03] MEDS: Ipratropium Bromide 2.5 ml Neb NEB SCH ×4 (07:02→23:12)
[2023-05-03] MEDS: Budesonide 0.5 MG/2 ML NEB NEB SCH ×2 (07:02→19:16)
[2023-05-03] MEDS: Hydrocortisone 10 mg Tablet PO SCH ×2 (09:07→20:21)
[2023-05-03] MEDS: predniSONE 20 MG TAB PO SCH (09:07)
[2023-05-03] MEDS: Pantoprazole 40 MG VIAL IVP SCH ×2 (09:07→20:22)
[2023-05-03] MEDS: Doxycycline 100 MG in Sodium Chloride 0.9% 100 ML IVPB SCH ×2 (09:07→20:22)
[2023-05-03] MEDS: HYDROcodone/Acetaminophen 5/325 mg Tablet PO PRN ×2 (09:49→20:20)
[2023-05-03] MEDS: dilTIAZem CD 180 MG CAP PO SCH (20:21)
[2023-05-04] MEDS: Levothyroxine Sodium 88 MCG TAB PO SCH (05:53)
[2023-05-04] MEDS: Ipratropium Bromide 2.5 ml Neb NEB SCH ×3 (07:00→18:28)
[2023-05-04] MEDS: Levalbuterol HCl 0.63 MG/3 ML NEB NEB SCH ×3 (07:00→18:28)
[2023-05-04] MEDS: Budesonide 0.5 MG/2 ML NEB NEB SCH ×2 (07:00→18:28)
[2023-05-04] MEDS ORDERED: predniSONE 20 MG TAB PO SCH (08:00)
[2023-05-04 09:24] LABS: Hematocrit 26.4 % (36.0-47.0); Hemoglobin 7.9 g/dL (12.0-16.0); Mean Corpuscular HGB CONC 29.9 g/dL (32.0-36.0); Mean Corpuscular Hemoglobin 24.9 pg (27.0-31.0); Mean Corpuscular Volume 83.3 fl (78.0-98.0); Platelet Count 106 10x3/uL (130-400); RBC Distribution Width 28.5 % (11.5-14.5); Red Blood Cell (RBC) Count 3.17 mill/uL (4.20-5.40)
[2023-05-04] MEDS: Hydrocortisone 10 mg Tablet PO SCH ×2 (09:29→21:58)
[2023-05-04] MEDS: Pantoprazole 40 MG VIAL IVP SCH ×2 (09:29→21:42)
[2023-05-04 09:43] LABS: Delete Auto Diff?? YES; Manual Diff?? YES
[2023-05-04 10:22] LABS: Anisocytosis MODERATE=16-30 cells HPF (0-5); Burr Cells SLIGHT = 2-5 cells HPF (0-1); CellaVision Operator ID LAB.GE; Hypochromia SLIGHT = 6-15 cells HPF (0-5); Lymphocytes 3 % (21-51); Monocytes 7 % (0-10); Myelocyte 4 % (0-0); Neutrophil 84 % (42-75); Nucleated RBC (Manual Ct) 2 % (0); Platelet Adequacy Comment Platelets Decreased; Polychromasia MARKED = >4 cells HPF (0-2); Reactive Lymphocytes 1 % (0-10); Target Cells SLIGHT = 2-5 cells HPF (0-1); Total Cell Count 102
[2023-05-04] MEDS: dilTIAZem CD 180 MG CAP PO SCH (21:42)
[2023-05-04] MEDS: HYDROcodone/Acetaminophen 5/325 mg Tablet PO PRN (21:58)
[2023-05-05] MEDS: Levalbuterol HCl 0.63 MG/3 ML NEB NEB SCH ×5 (00:31→23:08)
[2023-05-05] MEDS: Ipratropium Bromide 2.5 ml Neb NEB SCH ×5 (00:32→23:10)
[2023-05-05] MEDS: Levothyroxine Sodium 88 MCG TAB PO SCH (05:33)
[2023-05-05 06:28] LABS: Hematocrit 24.9 % (36.0-47.0); Hemoglobin 7.5 g/dL (12.0-16.0); Mean Corpuscular HGB CONC 30.1 g/dL (32.0-36.0); Mean Corpuscular Hemoglobin 25.4 pg (27.0-31.0); Mean Corpuscular Volume 84.4 fl (78.0-98.0); Platelet Count 113 10x3/uL (130-400); RBC Distribution Width 28.7 % (11.5-14.5); Red Blood Cell (RBC) Count 2.95 mill/uL (4.20-5.40); White Blood Cell (WBC) Count 17.7 10x3/uL (4.8-10.8)
[2023-05-05 06:53] LABS: Manual Diff?? YES
[2023-05-05 06:54] LABS: Anion Gap 11 mmol/L (10-20); BUN (Urea Nitrogen) 20 mg/dL (9.8-20.1); Calc. Creatinine Clearance 87 mL/min (70-130); Carbon Dioxide 29 mmol/L (23-31); Chloride 108 mmol/L (98-107); Estimated GFR 96; Glucose 105 mg/dL (80-115); Potassium 3.5 mmol/L (3.5-5.1); Sodium 144 mmol/L (136-145)
[2023-05-05 06:55] LABS: Delete Auto Diff?? YES
[2023-05-05] MEDS: Budesonide 0.5 MG/2 ML NEB NEB SCH ×2 (07:23→18:56)
[2023-05-05] MEDS ORDERED: Potassium Bicarbonate/Cit Ac 20 MEQ TAB PO SCH (08:45)
[2023-05-05] MEDS: Pantoprazole 40 MG VIAL IVP SCH ×2 (09:29→20:55)
[2023-05-05] MEDS: predniSONE 20 MG TAB PO SCH ×2 (09:29→17:32)
[2023-05-05] MEDS: Hydrocortisone 10 mg Tablet PO SCH ×2 (09:29→20:56)
[2023-05-05] MEDS: HYDROcodone/Acetaminophen 5/325 mg Tablet PO PRN ×2 (09:32→20:58)
[2023-05-05 10:07] LABS: Band 4 % (5-11); Eosinophils 1 % (0-10); Lymphocytes 2 % (21-51); Metamyelocyte 6 % (0-0); Myelocyte 6 % (0-0); Nucleated RBC (Manual Ct) 3 % (0)
[2023-05-05 10:08] LABS: Hypersegmented Neutrophil SLIGHT; Platelet Adequacy Comment Appears Decreased
[2023-05-05 10:14] LABS: Anisocytosis MODERATE=16-30 cells (100X) (0-5/hpf); Schistocytes SLIGHT = 2-5 cells (100X) (0-1/hpf)
[2023-05-05 10:15] LABS: Burr Cells SLIGHT = 2-5 cells (100X) (0-1/hpf)
[2023-05-05 10:18] LABS: Polychromasia SLIGHT = 2-3 cells (100X) (0-2/hpf)
[2023-05-05 10:20] LABS: Neutrophil 81 % (42-75)
[2023-05-05] MEDS: dilTIAZem CD 180 MG CAP PO SCH (20:56)
[2023-05-06] MEDS: Levothyroxine Sodium 88 MCG TAB PO SCH (06:09)
[2023-05-06 07:02] LABS: Hematocrit 25.1 % (36.0-47.0); Hemoglobin 7.8 g/dL (12.0-16.0); Mean Corpuscular HGB CONC 31.1 g/dL (32.0-36.0); Mean Corpuscular Hemoglobin 25.4 pg (27.0-31.0); Mean Corpuscular Volume 81.8 fl (78.0-98.0); RBC Distribution Width 29.2 % (11.5-14.5); Red Blood Cell (RBC) Count 3.07 mill/uL (4.20-5.40); White Blood Cell (WBC) Count 22.8 10x3/uL (4.8-10.8)
[2023-05-06 07:03] LABS: Platelet Count 87 10x3/uL (130-400)
[2023-05-06 07:04] LABS: Delete Auto Diff?? YES; Manual Diff?? YES
[2023-05-06 07:21] LABS: Anion Gap 13 mmol/L (10-20); BUN (Urea Nitrogen) 16 mg/dL (9.8-20.1); Calc. Creatinine Clearance 98 mL/min (70-130); Calcium 8.1 mg/dL (7.8-10.44); Carbon Dioxide 30 mmol/L (23-31); Chloride 104 mmol/L (98-107); Estimated GFR 99; Glucose 80 mg/dL (80-115); Potassium 4.1 mmol/L (3.5-5.1); Sodium 143 mmol/L (136-145)
[2023-05-06] MEDS: Budesonide 0.5 MG/2 ML NEB NEB SCH ×2 (07:26→18:02)
[2023-05-06] MEDS: Levalbuterol HCl 0.63 MG/3 ML NEB NEB SCH ×4 (07:27→22:23)
[2023-05-06] MEDS: Ipratropium Bromide 2.5 ml Neb NEB SCH ×4 (07:28→22:23)
[2023-05-06] MEDS: predniSONE 20 MG TAB PO SCH ×2 (08:19→16:22)
[2023-05-06] MEDS: Hydrocortisone 10 mg Tablet PO SCH ×2 (08:19→21:13)
[2023-05-06] MEDS: Pantoprazole 40 MG VIAL IVP SCH ×2 (08:19→21:13)
[2023-05-06] MEDS: HYDROcodone/Acetaminophen 5/325 mg Tablet PO PRN ×2 (08:20→21:15)
[2023-05-06] MEDS: Doxycycline 100 MG in Sodium Chloride 0.9% 100 ML IVPB SCH ×3 (08:27→21:18)
[2023-05-06 09:04] LABS: Anisocytosis MODERATE=16-30 cells HPF (0-5); Band 3 % (5-11); CellaVision Operator ID LAB.GE; Hypochromia MODERATE=16-30 cells HPF (0-5); Lymphocytes 4 % (21-51); Metamyelocyte 6 % (0-0); Monocytes 6 % (0-10); Myelocyte 7 % (0-0); Neutrophil 73 % (42-75); Nucleated RBC (Manual Ct) 1 % (0); Platelet Adequacy Comment Platelets Decreased; Polychromasia MODERATE = 3-4 cells HPF (0-2); Target Cells SLIGHT = 2-5 cells HPF (0-1); Total Cell Count 104; Vacuoles SLIGHT
[2023-05-06] MEDS: dilTIAZem CD 180 MG CAP PO SCH (21:13)
[2023-05-07] MEDS: Levothyroxine Sodium 88 MCG TAB PO SCH (05:53)
[2023-05-07 06:20] LABS: Hematocrit 23.9 % (36.0-47.0); Hemoglobin 7.2 g/dL (12.0-16.0); Mean Corpuscular HGB CONC 30.1 g/dL (32.0-36.0); Mean Corpuscular Hemoglobin 25.2 pg (27.0-31.0); Mean Corpuscular Volume 83.6 fl (78.0-98.0); Platelet Count 157 10x3/uL (130-400); RBC Distribution Width 29.8 % (11.5-14.5); Red Blood Cell (RBC) Count 2.86 mill/uL (4.20-5.40); White Blood Cell (WBC) Count 34.1 10x3/uL (4.8-10.8)
[2023-05-07 06:37] LABS: Delete Auto Diff?? YES; Manual Diff?? YES
[2023-05-07 06:46] LABS: Anion Gap 10 mmol/L (10-20); BUN (Urea Nitrogen) 21 mg/dL (9.8-20.1); Calc. Creatinine Clearance 102 mL/min (70-130); Calcium 8.1 mg/dL (7.8-10.44); Carbon Dioxide 26 mmol/L (23-31); Chloride 112 mmol/L (98-107); Estimated GFR 100; Glucose 101 mg/dL (80-115); Sodium 144 mmol/L (136-145)
[2023-05-07] MEDS: Budesonide 0.5 MG/2 ML NEB NEB SCH ×2 (06:58→18:36)
[2023-05-07] MEDS: Levalbuterol HCl 0.63 MG/3 ML NEB NEB SCH ×3 (06:58→18:34)
[2023-05-07] MEDS: Ipratropium Bromide 2.5 ml Neb NEB SCH ×3 (06:59→18:36)
[2023-05-07 07:19] LABS: Anisocytosis MODERATE=16-30 cells HPF (0-5); Band 8 % (5-11); CellaVision Operator ID LAB.GE; Hypochromia MODERATE=16-30 cells HPF (0-5); Large Platelets 0.9 % (0-5); Lymphocytes 1 % (21-51); Metamyelocyte 3 % (0-0); Monocytes 5 % (0-10); Myelocyte 4 % (0-0); Neutrophil 78 % (42-75); Nucleated RBC (Manual Ct) 1 % (0); Platelet Adequacy Comment Platelets Normal; Polychromasia MODERATE = 3-4 cells HPF (0-2); Promyelocytes 1 % (0-0); Total Cell Count 106
[2023-05-07] MEDS: predniSONE 20 MG TAB PO SCH ×2 (08:30→16:13)
[2023-05-07] MEDS: Hydrocortisone 10 mg Tablet PO SCH ×2 (08:30→21:54)
[2023-05-07] MEDS: Pantoprazole 40 MG VIAL IVP SCH ×2 (08:30→21:55)
[2023-05-07] MEDS: LevoFLOXacin 500 mg/D5W 500 MG in Premix Bag 1 BAG IVPB SCH (08:58)
[2023-05-07] MEDS: Nystatin 500,000 UNITS/5 ML UDCUP SSW SCH ×4 (09:15→21:54)
[2023-05-07] MEDS: HYDROcodone/Acetaminophen 5/325 mg Tablet PO PRN ×2 (13:34→21:54)
[2023-05-07] MEDS: dilTIAZem CD 180 MG CAP PO SCH (21:54)
[2023-05-08] MEDS: Ipratropium Bromide 2.5 ml Neb NEB SCH ×4 (01:39→18:24)
[2023-05-08] MEDS: Levalbuterol HCl 0.63 MG/3 ML NEB NEB SCH ×4 (01:41→18:27)
[2023-05-08] MEDS: HYDROcodone/Acetaminophen 5/325 mg Tablet PO PRN ×2 (06:57→21:16)
[2023-05-08] MEDS: Levothyroxine Sodium 88 MCG TAB PO SCH (06:57)
[2023-05-08 07:11] LABS: Hematocrit 26.1 % (36.0-47.0); Hemoglobin 7.8 g/dL (12.0-16.0); Mean Corpuscular HGB CONC 29.9 g/dL (32.0-36.0); Mean Corpuscular Hemoglobin 25.3 pg (27.0-31.0); Mean Corpuscular Volume 84.7 fl (78.0-98.0); Platelet Count 186 10x3/uL (130-400); RBC Distribution Width 29.8 % (11.5-14.5); Red Blood Cell (RBC) Count 3.08 mill/uL (4.20-5.40)
[2023-05-08 07:17] LABS: Delete Auto Diff?? YES; Manual Diff?? YES
[2023-05-08 07:59] LABS: Anion Gap 15 mmol/L (10-20); BUN (Urea Nitrogen) 22 mg/dL (9.8-20.1); Calc. Creatinine Clearance 91 mL/min (70-130); Calcium 9.2 mg/dL (7.8-10.44); Carbon Dioxide 24 mmol/L (23-31); Chloride 106 mmol/L (98-107); Estimated GFR 97; Glucose 98 mg/dL (80-115); Potassium 4.1 mmol/L (3.5-5.1); Sodium 141 mmol/L (136-145)
[2023-05-08] MEDS: Pantoprazole 40 MG VIAL IVP SCH ×2 (08:28→21:14)
[2023-05-08] MEDS: Hydrocortisone 10 mg Tablet PO SCH ×2 (08:28→21:14)
[2023-05-08] MEDS: LevoFLOXacin 500 mg/D5W 500 MG in Premix Bag 1 BAG IVPB SCH (08:29)
[2023-05-08] MEDS: Nystatin 500,000 UNITS/5 ML UDCUP SSW SCH ×4 (08:29→21:13)
[2023-05-08] MEDS: predniSONE 20 MG TAB PO SCH ×2 (08:29→16:30)
[2023-05-08] MEDS ORDERED: Furosemide 40 MG/4 ML VIAL SLOW IVP SCH (08:30)
[2023-05-08] MEDS: Budesonide 0.5 MG/2 ML NEB NEB SCH ×2 (08:31→18:26)
[2023-05-08 09:00] LABS: Band 4 % (5-11); Hypochromia MODERATE=16-30 cells (100X) (0-5/hpf); Lymphocytes 1 % (21-51); Metamyelocyte 8 % (0-0); Monocytes 7 % (0-10); Myelocyte 3 % (0-0); Neutrophil 77 % (42-75); Nucleated RBC (Manual Ct) 1 % (0); Platelet Adequacy Comment Appears Adequate
[2023-05-08 11:59] LABS: Lactic Acid 2.5 mmol/L (0.5-2.2)
[2023-05-08] MEDS: dilTIAZem CD 180 MG CAP PO SCH (21:14)
[2023-05-09] MEDS: Ipratropium Bromide 2.5 ml Neb NEB SCH ×4 (01:47→18:23)
[2023-05-09] MEDS: Levalbuterol HCl 0.63 MG/3 ML NEB NEB SCH ×4 (01:49→18:20)
[2023-05-09] MEDS: Levothyroxine Sodium 88 MCG TAB PO SCH (06:00)
[2023-05-09] MEDS: Budesonide 0.5 MG/2 ML NEB NEB SCH ×2 (06:42→18:24)
[2023-05-09 07:46] LABS: Anion Gap 16 mmol/L (10-20); BUN (Urea Nitrogen) 25 mg/dL (9.8-20.1); Calc. Creatinine Clearance 96 mL/min (70-130); Calcium 8.8 mg/dL (7.8-10.44); Carbon Dioxide 24 mmol/L (23-31); Chloride 106 mmol/L (98-107); Estimated GFR 98; Glucose 89 mg/dL (80-115); Potassium 4.2 mmol/L (3.5-5.1); Sodium 142 mmol/L (136-145)
[2023-05-09] MEDS ORDERED: Furosemide 40 MG/4 ML VIAL SLOW IVP SCH (09:15)
[2023-05-09] MEDS: Pantoprazole 40 MG VIAL IVP SCH ×2 (09:41→19:58)
[2023-05-09] MEDS: Hydrocortisone 10 mg Tablet PO SCH ×2 (09:41→19:57)
[2023-05-09] MEDS: Nystatin 500,000 UNITS/5 ML UDCUP SSW SCH ×4 (09:41→20:05)
[2023-05-09] MEDS: predniSONE 20 MG TAB PO SCH ×2 (09:42→17:59)
[2023-05-09] MEDS: LevoFLOXacin 500 mg/D5W 500 MG in Premix Bag 1 BAG IVPB SCH (09:42)
[2023-05-09] MEDS: HYDROcodone/Acetaminophen 5/325 mg Tablet PO PRN ×2 (09:53→17:58)
[2023-05-09 10:04] LABS: Iron 48 ug/dL (50-170); Iron Binding Capacity, Total 240 mcg/dL (265-497)
[2023-05-09 12:01] LABS: Hematocrit 27.4 % (36.0-47.0); Hemoglobin 8.1 g/dL (12.0-16.0); Mean Corpuscular HGB CONC 29.6 g/dL (32.0-36.0); Mean Corpuscular Volume 84.6 fl (78.0-98.0); Platelet Count 179 10x3/uL (130-400); RBC Distribution Width 29.9 % (11.5-14.5); Red Blood Cell (RBC) Count 3.24 mill/uL (4.20-5.40)
[2023-05-09 12:08] LABS: Delete Auto Diff?? YES; Manual Diff?? YES
[2023-05-09 12:35] LABS: Anisocytosis MODERATE=16-30 cells HPF (0-5); Band 3 % (5-11); Basophilic Stippling SLIGHT = 1-2 cells HPF (None Seen); CellaVision Operator ID LAB.MJL; Hypochromia MODERATE=16-30 cells HPF (0-5); Large Platelets 0.8 % (0-5); Lymphocytes 3 % (21-51); Metamyelocyte 5 % (0-0); Monocytes 7 % (0-10); Myelocyte 3 % (0-0); Neutrophil 79 % (42-75); Nucleated RBC (Manual Ct) 6 % (0); Ovalocytes SLIGHT = 2-5 cells HPF (0-1); Platelet Adequacy Comment Platelets Normal; Poikilocytosis MODERATE=16-30 cells HPF (0-5); Polychromasia MODERATE = 3-4 cells HPF (0-2); Reactive Lymphocytes 1 % (0-10); Target Cells SLIGHT = 2-5 cells HPF (0-1); Total Cell Count 120
[2023-05-09] MEDS: dilTIAZem CD 180 MG CAP PO SCH (19:57)
[2023-05-10] MEDS: Ipratropium Bromide 2.5 ml Neb NEB SCH ×4 (01:19→18:48)
[2023-05-10] MEDS: Levalbuterol HCl 0.63 MG/3 ML NEB NEB SCH ×4 (01:20→18:46)
[2023-05-10] MEDS: Levothyroxine Sodium 88 MCG TAB PO SCH (06:17)
[2023-05-10] MEDS: HYDROcodone/Acetaminophen 5/325 mg Tablet PO PRN ×3 (06:32→20:21)
[2023-05-10] MEDS: Budesonide 0.5 MG/2 ML NEB NEB SCH ×2 (07:14→18:48)
[2023-05-10 08:01] LABS: Hematocrit 24.9 % (36.0-47.0); Hemoglobin 7.5 g/dL (12.0-16.0); Mean Corpuscular HGB CONC 30.1 g/dL (32.0-36.0); Mean Corpuscular Hemoglobin 25.4 pg (27.0-31.0); Mean Corpuscular Volume 84.4 fl (78.0-98.0); Platelet Count 148 10x3/uL (130-400); RBC Distribution Width 30.3 % (11.5-14.5); Red Blood Cell (RBC) Count 2.95 mill/uL (4.20-5.40); White Blood Cell (WBC) Count 29.3 10x3/uL (4.8-10.8)
[2023-05-10 08:30] LABS: Anion Gap 12 mmol/L (10-20); BUN (Urea Nitrogen) 26 mg/dL (9.8-20.1); Calc. Creatinine Clearance 95 mL/min (70-130); Calcium 8.9 mg/dL (7.8-10.44); Carbon Dioxide 31 mmol/L (23-31); Chloride 104 mmol/L (98-107); Estimated GFR 98; Glucose 107 mg/dL (80-115); Potassium 3.8 mmol/L (3.5-5.1); Sodium 143 mmol/L (136-145)
[2023-05-10 08:32] LABS: Delete Auto Diff?? YES; Manual Diff?? YES
[2023-05-10 09:03] LABS: Anisocytosis MODERATE=16-30 cells HPF (0-5); Band 1 % (5-11); Burr Cells SLIGHT = 2-5 cells HPF (0-1); CellaVision Operator ID LAB.NR; Hypochromia MODERATE=16-30 cells HPF (0-5); Large Platelets 0.8 % (0-5); Lymphocytes 9 % (21-51); Metamyelocyte 5 % (0-0); Monocytes 6 % (0-10); Myelocyte 7 % (0-0); Neutrophil 73 % (42-75); Nucleated RBC (Manual Ct) 2 % (0); Ovalocytes SLIGHT = 2-5 cells HPF (0-1); Platelet Adequacy Comment Platelets Normal; Poikilocytosis SLIGHT = 6-15 cells HPF (0-5); Polychromasia SLIGHT = 2-3 cells HPF (0-2); Smudge Cells 1.7 %; Target Cells SLIGHT = 2-5 cells HPF (0-1); Total Cell Count 120
[2023-05-10] MEDS: LevoFLOXacin 500 mg/D5W 500 MG in Premix Bag 1 BAG IVPB SCH (09:05)
[2023-05-10] MEDS: predniSONE 20 MG TAB PO SCH ×2 (09:05→17:49)
[2023-05-10] MEDS: Pantoprazole 40 MG VIAL IVP SCH ×2 (09:05→20:15)
[2023-05-10] MEDS: Hydrocortisone 10 mg Tablet PO SCH ×2 (09:05→20:15)
[2023-05-10] MEDS: Nystatin 500,000 UNITS/5 ML UDCUP SSW SCH ×4 (09:05→20:15)
[2023-05-10] MEDS ORDERED: Furosemide 40 MG/4 ML VIAL SLOW IVP SCH (10:00)
[2023-05-10] MEDS: Cyclobenzaprine 10 MG TAB PO PRN ×2 (14:03→20:22)
[2023-05-10] MEDS: dilTIAZem CD 180 MG CAP PO SCH (20:15)
[2023-05-11] MEDS: Ipratropium Bromide 2.5 ml Neb NEB SCH ×4 (00:21→19:23)
[2023-05-11] MEDS: Levalbuterol HCl 0.63 MG/3 ML NEB NEB SCH ×4 (00:21→19:23)
[2023-05-11] MEDS: Levothyroxine Sodium 88 MCG TAB PO SCH (04:55)
[2023-05-11] MEDS: HYDROcodone/Acetaminophen 5/325 mg Tablet PO PRN (04:57)
[2023-05-11] MEDS: Cyclobenzaprine 10 MG TAB PO PRN (04:57)
[2023-05-11] MEDS: Budesonide 0.5 MG/2 ML NEB NEB SCH ×2 (07:25→19:23)
[2023-05-11 07:31] LABS: Hematocrit 26.5 % (36.0-47.0); Hemoglobin 7.9 g/dL (12.0-16.0); Mean Corpuscular HGB CONC 29.8 g/dL (32.0-36.0); Mean Corpuscular Hemoglobin 25.3 pg (27.0-31.0); Mean Corpuscular Volume 84.9 fl (78.0-98.0); Platelet Count 157 10x3/uL (130-400); RBC Distribution Width 30.8 % (11.5-14.5); Red Blood Cell (RBC) Count 3.12 mill/uL (4.20-5.40); White Blood Cell (WBC) Count 29.6 10x3/uL (4.8-10.8)
[2023-05-11 07:36] LABS: Delete Auto Diff?? YES; Manual Diff?? YES
[2023-05-11 08:11] LABS: Anisocytosis MODERATE=16-30 cells HPF (0-5); Band 3 % (5-11); Burr Cells SLIGHT = 2-5 cells HPF (0-1); CellaVision Operator ID LAB.GE; Hypochromia MODERATE=16-30 cells HPF (0-5); Large Platelets 0.8 % (0-5); Lymphocytes 2 % (21-51); Metamyelocyte 8 % (0-0); Monocytes 3 % (0-10); Myelocyte 3 % (0-0); Neutrophil 80 % (42-75); Nucleated RBC (Manual Ct) 3 % (0); Platelet Adequacy Comment Platelets Normal; Polychromasia MARKED = >4 cells HPF (0-2); Promyelocytes 1 % (0-0); Target Cells SLIGHT = 2-5 cells HPF (0-1); Total Cell Count 118
[2023-05-11] MEDS: Pantoprazole 40 MG VIAL IVP SCH ×2 (08:41→21:55)
[2023-05-11] MEDS: Hydrocortisone 10 mg Tablet PO SCH (08:42)
[2023-05-11] MEDS: Ferrous Sulfate 325 MG TAB PO SCH (08:42)
[2023-05-11] MEDS: predniSONE 20 MG TAB PO SCH (08:42)
[2023-05-11] MEDS: Nystatin 500,000 UNITS/5 ML UDCUP SSW SCH ×4 (08:42→21:53)
[2023-05-11] MEDS: LevoFLOXacin 500 mg/D5W 500 MG in Premix Bag 1 BAG IVPB SCH (08:43)
[2023-05-11] MEDS ORDERED: Furosemide 40 MG/4 ML VIAL SLOW IVP SCH (09:00)
[2023-05-11] MEDS: HYDROcodone/Acetaminophen 10/325 mg Tablet PO PRN ×2 (09:33→13:23)
[2023-05-11 13:13] VITALS: BMI 24.1
[2023-05-11] MEDS: Ondansetron PF 4 MG/2 ML Vial IVP PRN ×2 (16:04→22:37)
[2023-05-11] MEDS: Cefepime 2 GM in Sodium Chloride 0.9% 100 ML IVPB SCH (21:52)
[2023-05-11] MEDS: dilTIAZem CD 180 MG CAP PO SCH (21:55)
[2023-05-12] MEDS: Ipratropium Bromide 2.5 ml Neb NEB SCH ×3 (00:22→14:04)
[2023-05-12] MEDS: Levalbuterol HCl 0.63 MG/3 ML NEB NEB SCH ×3 (00:23→14:05)
[2023-05-12] MEDS: Levothyroxine Sodium 88 MCG TAB PO SCH (05:38)
[2023-05-12] MEDS: Ondansetron PF 4 MG/2 ML Vial IVP PRN (06:40)
[2023-05-12] MEDS: Budesonide 0.5 MG/2 ML NEB NEB SCH (07:01)
[2023-05-12] MEDS: Nystatin 500,000 UNITS/5 ML UDCUP SSW SCH ×3 (08:25→14:36)
[2023-05-12] MEDS ORDERED: Promethazine HCl 12.5 MG in Sodium Chloride 0.9% 50 ML IVPB PRN (08:25)
[2023-05-12] MEDS: Cefepime 2 GM in Sodium Chloride 0.9% 100 ML IVPB SCH (08:25)
[2023-05-12] MEDS: LevoFLOXacin 500 mg/D5W 500 MG in Premix Bag 1 BAG IVPB SCH (08:26)
[2023-05-12] MEDS: predniSONE 20 MG TAB PO SCH ×2 (08:26→08:53)
[2023-05-12] MEDS: HYDROcodone/Acetaminophen 10/325 mg Tablet PO PRN (08:26)
[2023-05-12] MEDS: Pantoprazole 40 MG VIAL IVP SCH (08:26)
[2023-05-12] MEDS: Ferrous Sulfate 325 MG TAB PO SCH ×2 (08:26→08:53)
[2023-05-12] MEDS ORDERED: Lorazepam 2 MG/ML VIAL SLOW IVP PRN (09:06)
[2023-05-12 09:52] LABS: Hematocrit 33.6 % (36.0-47.0); Hemoglobin 9.6 g/dL (12.0-16.0); Mean Corpuscular HGB CONC 28.6 g/dL (32.0-36.0); Mean Corpuscular Hemoglobin 24.6 pg (27.0-31.0); Mean Corpuscular Volume 86.2 fl (78.0-98.0); Platelet Count 117 10x3/uL (130-400); RBC Distribution Width 30.9 % (11.5-14.5); White Blood Cell (WBC) Count 52.7 10x3/uL (4.8-10.8)
[2023-05-12 09:53] LABS: Delete Auto Diff?? YES; Manual Diff?? YES
[2023-05-12 10:14] LABS: Anion Gap 20 mmol/L (10-20); BUN (Urea Nitrogen) 64 mg/dL (9.8-20.1); Calc. Creatinine Clearance 33 mL/min (70-130); Carbon Dioxide 25 mmol/L (23-31); Chloride 99 mmol/L (98-107); Estimated GFR 33; Glucose 143 mg/dL (80-115); Potassium 5.7 mmol/L (3.5-5.1); Sodium 138 mmol/L (136-145)
[2023-05-12] MEDS: Morphine 2 MG/ML VIAL SLOW IVP PRN ×2 (10:33→13:38)
[2023-05-12 10:39] LABS: Anisocytosis MARKED = >30 cells HPF (0-5); Band 8 % (5-11); Burr Cells MODERATE= 6-15 cells HPF (0-1); CellaVision Operator ID LAB.GE; Hypochromia SLIGHT = 6-15 cells HPF (0-5); Large Platelets 0.8 % (0-5); Lymphocytes 4 % (21-51); Metamyelocyte 5 % (0-0); Monocytes 2 % (0-10); Myelocyte 2 % (0-0); Neutrophil 79 % (42-75); Nucleated RBC (Manual Ct) 2 % (0); Platelet Adequacy Comment Platelets Decreased; Poikilocytosis SLIGHT = 6-15 cells HPF (0-5); Polychromasia MARKED = >4 cells HPF (0-2); Spherocytes SLIGHT = 1-5 cells HPF (None Seen); Total Cell Count 120
[2023-05-12 11:56] VITALS: BP 105/67; TEMP 97.1
[2023-05-12] MEDS ORDERED: Cefepime 1 GM in Sodium Chloride 0.9% 100 ML IVPB SCH (21:00)
== END 2023-05-12 14:56 | disposition hospice, inpatient (51) | DRG 377 ==
LOC: ERS 18:16 → 2NO 20:25 → CCU 04-26 11:32 → 2NO 04-27 12:58 → CCU 04-30 13:30 → IMCU/EMU 04-30 19:36 → T4-B 05-04 15:33
PROVIDERS: ADMIT Specialist; ATTEND Internal Medicine
PROC: 30233N1 Transfusion of Nonautologous Red Blood Cells into Peripheral Vein, Percutaneous Approach (ICD-10-PCS; 2023-04-20)
PROC: 06H03DZ Insertion of Intraluminal Device into Inferior Vena Cava, Percutaneous Approach (ICD-10-PCS; principal; 2023-04-24)
PROC: 0DB98ZX Excision of Duodenum, Via Natural or Artificial Opening Endoscopic, Diagnostic (ICD-10-PCS; 2023-04-26)
PROC: 0W3P8ZZ Control Bleeding in Gastrointestinal Tract, Via Natural or Artificial Opening Endoscopic (ICD-10-PCS; 2023-04-26)
PROC: 4A133R1 Monitoring of Arterial Saturation, Peripheral, Percutaneous Approach (ICD-10-PCS; 2023-04-26)
PROC: 5A09357 Assistance with Respiratory Ventilation, Less than 24 Consecutive Hours, Continuous Positive Airway Pressure (ICD-10-PCS; 2023-04-26)
PROC: 0W3P8ZZ Control Bleeding in Gastrointestinal Tract, Via Natural or Artificial Opening Endoscopic (ICD-10-PCS; 2023-04-30)
DX: K55.21 Angiodysplasia of colon with hemorrhage (principal); I21.A1 Myocardial infarction type 2; J96.21 Acute and chronic respiratory failure with hypoxia; J44.1 Chronic obstructive pulmonary disease with (acute) exacerbation; E27.1 Primary adrenocortical insufficiency; D62 Acute posthemorrhagic anemia; N39.0 Urinary tract infection, site not specified; C34.90 Malignant neoplasm of unspecified part of unspecified bronchus or lung; J90 Pleural effusion, not elsewhere classified; K64.8 Other hemorrhoids; Z66 Do not resuscitate; Z51.5 Encounter for palliative care; D64.9 Anemia, unspecified; E03.9 Hypothyroidism, unspecified; I10 Essential (primary) hypertension; E78.5 Hyperlipidemia, unspecified; K21.9 Gastro-esophageal reflux disease without esophagitis; I65.29 Occlusion and stenosis of unspecified carotid artery; D50.9 Iron deficiency anemia, unspecified; D72.829 Elevated white blood cell count, unspecified; K64.4 Residual hemorrhoidal skin tags; R53.81 Other malaise; F41.1 Generalized anxiety disorder; K44.9 Diaphragmatic hernia without obstruction or gangrene; K57.30 Diverticulosis of large intestine without perforation or abscess without bleeding; Z98.890 Other specified postprocedural states; Z90.49 Acquired absence of other specified parts of digestive tract; Z87.891 Personal history of nicotine dependence; Z88.1 Allergy status to other antibiotic agents; Z88.8 Allergy status to other drugs, medicaments and biological substances; Z79.890 Hormone replacement therapy; Z79.01 Long term (current) use of anticoagulants; Z79.899 Other long term (current) drug therapy; Z85.118 Personal history of other malignant neoplasm of bronchus and lung; Z86.718 Personal history of other venous thrombosis and embolism; Z86.711 Personal history of pulmonary embolism; Z86.16 Personal history of COVID-19; Z99.81 Dependence on supplemental oxygen; Z20.822 Contact with and (suspected) exposure to COVID-19
CPT/HCPCS: 36415; 36416; 36430; 36600; 37191; 71045; 71046; 71260; 74176; 74177; 80048; 80053; 81001; 82553; 82728; 82805; 83540; 83550; 83605; 83880; 84145; 84484; 85025; 85060; 86850; 86900; 86901; 87040; 87077; 87086; 87186; 88184; 88305; 93005; 93306; 93970; 94640; 94660; 94760; 96365; 97139; C1769; C1880; C1894; C9113; J0692; J1650; J1720; J1940; J1956; J2001; J2272; J2405; J2704; J2920; J2930; J3480; J3490; J7050; J7512; J7614; J7620; J7626; P9016; Q9967

== ENCOUNTER 2023-05-12 15:39 | Inpatient (IN) | payer OTHER ==
[2023-05-12] MEDS ORDERED: Lorazepam 2 MG/ML VIAL SLOW IVP PRN (15:56)
[2023-05-12] MEDS ORDERED: Ondansetron PF 4 MG/2 ML Vial IVP PRN (16:00)
[2023-05-12] MEDS ORDERED: diphenhydrAMINE 50 MG/ML VIAL IVP SCH (16:15)
[2023-05-12] MEDS ORDERED: Scopolamine 1.5 mg/72 hour Patch TOP SCH (16:15)
[2023-05-12] MEDS: Morphine 4 MG/ML VIAL SLOW IVP SCH ×5 (16:20→23:44)
[2023-05-12] MEDS: Lorazepam 2 MG/ML VIAL SLOW IVP SCH ×3 (16:21→23:45)
[2023-05-12] MEDS: Morphine 2 MG/ML VIAL SLOW IVP PRN ×2 (19:21→22:38)
[2023-05-12] MEDS ORDERED: GLYCOPYRROLATE/PF 0.2 MG/ML VIAL SLOW IVP PRN (22:06)
== END 2023-05-13 00:15 | disposition expired | DRG 951 ==
LOC: T4-B 15:39
PROVIDERS: ADMIT Internal Medicine Nephrology; ATTEND Internal Medicine Nephrology
DX: Z51.5 Encounter for palliative care (principal); J96.21 Acute and chronic respiratory failure with hypoxia; K31.811 Angiodysplasia of stomach and duodenum with bleeding; I21.A1 Myocardial infarction type 2; D62 Acute posthemorrhagic anemia; J44.1 Chronic obstructive pulmonary disease with (acute) exacerbation; N39.0 Urinary tract infection, site not specified; E27.1 Primary adrenocortical insufficiency; E03.9 Hypothyroidism, unspecified; K21.9 Gastro-esophageal reflux disease without esophagitis
CPT/HCPCS: J1200; J2060; J2270; J2272; J3490